=== PATIENT | male | born 1965 | race Caucasian/White ===

== ENCOUNTER 2016-09-24 15:31 | Inpatient (IN) | payer MEDICAID ==
[~2016-09-24] VITALS: Ht 175.3 cm; Wt 104.5 kg
[~2016-09-24 15:31] MED LIST: ULTR50TA PO
[2016-09-24 15:33] VITALS: BP 167/79; PULSE 88; RESP 16; TEMP 98.7; O2SAT 99
[2016-09-24] MEDS ORDERED: METF500T PO (15:49)
[2016-09-24] MEDS ORDERED: PIPERACIL-TAZO 4.5 GM PREMIX 100 ML IV STA (15:53)
[2016-09-24] MEDS ORDERED: VANCOMYCIN INJ 1,000 MG in SODIUM CHLOR 0.9% 250 ML INJ 250 ML IV STA (15:53)
[2016-09-24 16:10] VITALS: BP 167/79; PULSE 88; RESP 16; TEMP 98.7; O2SAT 99
--- NOTE | 2016-09-24 16:11 | PD ---
Physical Exam Date Seen by Provider: Sep 24, 2016 Time Seen by Provider: 16:01 Narrative Claims seen this patient with César Smith PA-C. This is a 51-year-old male with a history of diabetes mellitus, probable peripheral vascular disease, who presents today with complaints of right foot necrosis and drainage. The patient states that he previously had his right great toe removed 1-1/2 years ago. Patient states that this current condition is been progressing over the last 4-5 months. He reports drainage of foul-smelling serosanguineous fluid. There is no reported fevers, chills. He does report increased pain at the bottom his foot that makes it very difficult to stand on. Data Data Last Documented VS Vital Signs Date Time Temp Pulse Resp B/P Pulse Ox O2 Delivery O2 Flow Rate FiO2 09/24/16 17:41 69 18 146/70 98 Room Air 09/24/16 16:10 98.7 Orders Complete Blood Count With Diff (09/24/16 15:53) Comprehensive Metabolic Panel (09/24/16 15:53) Prothrombin Time / Inr (Pt) (09/24/16 15:53) Act Partial Throm Time (Ptt) (09/24/16 15:53) Lactic Acid Sepsis Protocol (09/24/16 15:53) Magnesium (Mg) (09/24/16 15:53) Blood Culture (09/24/16 15:53) Wound Culture And Gram Stain (09/24/16 15:53) Blood Glucose (09/24/16 15:53) Ecg Monitoring (09/24/16 15:53) Iv Access Insert/Monitor (09/24/16 15:53) Oximetry (09/24/16 15:53) C-Reactive Protein (Crp) (09/24/16 15:53) Westergren Sedimentation Rate (09/24/16 15:53) Foot, Complete ([id number]) (09/24/16 ) Piperacil-Tazo 4.5 Gm Premix (Zosyn 4.5 (09/24/16 15:53) Vancomycin Inj (Vancomycin Inj) (09/24/16 15:53) Morphine Inj (Morphine Inj) (09/24/16 17:15) Ondansetron Inj (Zofran Inj) (09/24/16 17:15) Labs Laboratory Tests Test 09/24/16 16:00 White Blood Count 7.1 TH/MM3 Red Blood Count 4.64 MIL/MM3 Hemoglobin 13.9 GM/DL Hematocrit 40.8 % Mean Corpuscular Volume 88.1 FL Mean Corpuscular Hemoglobin 30.0 PG Mean Corpuscular Hemoglobin 34.1 % Concent Red Cell Distribution Width 13.8 % Platelet Count 128 TH/MM3 Mean Platelet Volume 8.9 FL Neutrophils (%) (Auto) 55.2 % Lymphocytes (%) (Auto) 34.8 % Monocytes (%) (Auto) 5.4 % Eosinophils (%) (Auto) 3.3 % Basophils (%) (Auto) 1.3 % Neutrophils # (Auto) 3.9 TH/MM3 Lymphocytes # (Auto) 2.5 TH/MM3 Monocytes # (Auto) 0.4 TH/MM3 Eosinophils # (Auto) 0.2 TH/MM3 Basophils # (Auto) 0.1 TH/MM3 CBC Comment DIFF FINAL Differential Comment Prothrombin Time 10.1 SEC Prothromb Time International 0.9 RATIO Ratio Activated Partial 29.0 SEC Thromboplast Time Sodium Level 137 MEQ/L Potassium Level 4.1 MEQ/L Chloride Level 103 MEQ/L Carbon Dioxide Level 23.6 MEQ/L Anion Gap 10 MEQ/L Blood Urea Nitrogen 9 MG/DL Creatinine 0.79 MG/DL Estimat Glomerular Filtration 103 ML/MIN Rate Random Glucose 190 MG/DL Lactic Acid Level 1.8 mmol/L Calcium Level 9.3 MG/DL Magnesium Level 2.1 MG/DL Total Bilirubin 0.5 MG/DL Aspartate Amino Transf 31 U/L (AST/SGOT) Alanine Aminotransferase 37 U/L (ALT/SGPT) Alkaline Phosphatase 77 U/L C-Reactive Protein 2.10 MG/DL Total Protein 7.6 GM/DL Albumin 3.4 GM/DL [facility] Medical Record Reviewed: Yes Supervised Visit with DIANA: Yes Differential Diagnosis Gangrene versus osteomyelitis versus cellulitis Narrative Course 51-year-old male with history of diabetes medicine,, previous great right toe amputation, who presents today with worsening ulcer on the bottom of his right foot with necrosis and serous drainage. The patient states is been progressively worse over the last 4-5 months. He denies any fevers, chills. Patient states his blood sugars are unknown because he's not been checking them. He states he is just recently diagnosed with diabetes mellitus. White count 7.1. Blood glucose was 190. The patient will be admitted to the medicine service. He'll need a podiatry consult. He is amenable to the plan. Diagnosis Primary Impression: right foot ulcer with serosanguineous drainage. Additional Impressions: Type 2 diabetes mellitus Elevated random blood glucose level Tobacco abuse Admitting Information Admitting Physician Requests: Admit Ermias Abdullahi MD Sep 24, 2016 16:11
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
[2016-09-24 16:17] LABS: AUTOMATED NEUTROPHIL # 3.9 TH/MM3 (1.8-7.7); BASOPHIL # 0.1 TH/MM3 (0-0.2); BASOPHIL % 1.3 % (0.0-2.0); EOSINOPHIL # 0.2 TH/MM3 (0-0.4); EOSINOPHIL % 3.3 % (0.0-4.0); HEMATOCRIT 40.8 % (39.0-51.0); HEMO FLAGS DIFF FINAL; LYMPH % 34.8 % (9.0-44.0); LYMPHOCYTE # 2.5 TH/MM3 (1.0-4.8); MEAN CELL VOLUME 88.1 FL (80.0-100.0); MEAN CORPUSCULAR HGB CONC 34.1 % (32.0-36.0); MONO % 5.4 % (0.0-8.0); NEUT % 55.2 % (16.0-70.0); PLATELET COUNT 128 TH/MM3 (150-450); RED BLOOD COUNT 4.64 MIL/MM3 (4.50-5.90); RED CELL DISTRIBUTION WIDTH 13.8 % (11.6-17.2); WHITE BLOOD COUNT 7.1 TH/MM3 (4.0-11.0)
[2016-09-24 16:28] LABS: INTERNATIONAL NORMALIZED RATIO 0.9 RATIO; PROTHROMBIN TIME - PATIENT 10.1 SEC (9.8-11.6)
[2016-09-24 16:36] LABS: ALT (GPT) 37 U/L (12-78); ANION GAP 10 MEQ/L (5-15); AST (GOT) 31 U/L (15-37); BICARBONATE 23.6 MEQ/L (21.0-32.0); BLOOD UREA NITROGEN 9 MG/DL (7-18); CHLORIDE 103 MEQ/L (98-107); GLOMERULAR FILTRATION RATE 103 ML/MIN (>89); MAGNESIUM 2.1 MG/DL (1.5-2.5); POTASSIUM 4.1 MEQ/L (3.5-5.1); SODIUM (NA) 137 MEQ/L (136-145)
[2016-09-24 16:39] LABS: ALKALINE PHOSPHATASE 77 U/L (45-117); TOTAL BILIRUBIN ADULT 0.5 MG/DL (0.2-1.0)
--- NOTE | 2016-09-24 16:47 | RADRPT ---
EXAM DATE/TIME: 09/24/2016 16:16 [place] COMPARISON: No previous studies available for comparison. INDICATIONS : Open sores right foot, infection MEDICAL HISTORY : Diabetic SURGICAL HISTORY : Great toe amputation, right ENCOUNTER: Initial ACUITY: 1 week PAIN SCORE: 6/10 LOCATION: Right foot FINDINGS: Three view examination of the right foot demonstrates previous amputation at the first metatarsal and resection or resorption around the distal fifth metatarsal. No acute fracture or dislocation. No acu te bony destructive changes are seen. There is moderate osteoarthritis at the first tarsometatarsal j oint. Air in soft tissues around base of second and third toes. CONCLUSION: 1. Previous amputations as above. Apparent soft tissue ulceration and some air in soft tissues betwee n the second and third toes around the metatarsophalangeal joints. No definite bony erosive changes n oted. Cain Sheriff MD on September 24, 2016 at 16:43 Board Certified Radiologist. This report was verified electronically.
[2016-09-24] MEDS ORDERED: ONDANSETRON HCL 4 MG/2 ML VIAL IV PUSH ONE (17:15)
[2016-09-24] MEDS ORDERED: MORPHINE SULFATE 4 MG/ML INJ IV PUSH ONE (17:15)
[2016-09-24 17:41] VITALS: BP 146/70; PULSE 69; RESP 18; O2SAT 98
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
[2016-09-24] MEDS ORDERED: ACETAMINOPHEN 325 MG TAB PO PRN (18:45)
[2016-09-24] MEDS ORDERED: MAGNESIUM HYDROXIDE SUSP 30 ML CUP PO PRN (18:45)
[2016-09-24] MEDS ORDERED: DEXTROSE 50% IN WATER 50 ML VIAL(D50) IV PRN (18:45)
[2016-09-24] MEDS ORDERED: SODIUM CHLORIDE 0.9% FLUSH 10 ML FLUSH IV FLUSH PRN (18:45)
[2016-09-24] MEDS ORDERED: SENNOSIDES 8.6 MG TAB PO PRN (18:45)
[2016-09-24] MEDS ORDERED: LACTULOSE SYRUP 20 GM/30 ML CUP PO PRN (18:45)
[2016-09-24] MEDS ORDERED: BISACODYL 10 MG SUPP RECTAL PRN (18:45)
[2016-09-24] MEDS ORDERED: Vancomycin Consult Pharmacy 1 EA OTHER SCH (18:45)
[2016-09-24] MEDS ORDERED: GLUCAGON 1 MG/ML VIAL OTHER PRN (18:45)
[2016-09-24] MEDS ORDERED: oxyCODONE/ACETAMINOPHEN 5 MG/325 MG TAB PO PRN (19:00)
[2016-09-24] MEDS ORDERED: FLUMAZENIL 0.5 MG/5 ML VIAL IV PUSH PRN (19:00)
[2016-09-24] MEDS ORDERED: LORazepam 2 MG/ML VIAL IV PUSH PRN ×4 (19:00)
[2016-09-24] MEDS: LISINOPRIL 20 MG TAB PO SCH (19:00)
[2016-09-24] MEDS ORDERED: LORazepam 2 MG TAB PO PRN (19:00)
[2016-09-24] MEDS ORDERED: LORazepam 1 MG TAB PO PRN (19:00)
--- NOTE | 2016-09-24 20:32 | PD.CAR.PN ---
CVT Progress Note Subjective/Hospital Course: 09/24/16 Referral received Full consult to follow [facility] Delcid Objective: Vital Signs Date Time Temp Pulse Resp B/P Pulse Ox O2 Delivery O2 Flow Rate FiO2 09/24/16 17:41 69 18 146/70 98 Room Air 09/24/16 16:10 98.7 88 16 167/79 99 Room Air 09/24/16 15:44 86 20 09/24/16 15:33 98.7 88 16 167/79 99 Labs: Laboratory Tests Test 09/24/16 16:00 White Blood Count 7.1 TH/MM3 (4.0-11.0) Red Blood Count 4.64 MIL/MM3 (4.50-5.90) Hemoglobin 13.9 GM/DL (13.0-17.0) Hematocrit 40.8 % (39.0-51.0) Mean Corpuscular Volume 88.1 FL (80.0-100.0) Mean Corpuscular Hemoglobin 30.0 PG (27.0-34.0) Mean Corpuscular Hemoglobin 34.1 % Concent (32.0-36.0) Red Cell Distribution Width 13.8 % (11.6-17.2) Platelet Count 128 TH/MM3 (150-450) Mean Platelet Volume 8.9 FL (7.0-11.0) Neutrophils (%) (Auto) 55.2 % (16.0-70.0) Lymphocytes (%) (Auto) 34.8 % (9.0-44.0) Monocytes (%) (Auto) 5.4 % (0.0-8.0) Eosinophils (%) (Auto) 3.3 % (0.0-4.0) Basophils (%) (Auto) 1.3 % (0.0-2.0) Neutrophils # (Auto) 3.9 TH/MM3 (1.8-7.7) Lymphocytes # (Auto) 2.5 TH/MM3 (1.0-4.8) Monocytes # (Auto) 0.4 TH/MM3 (0-0.9) Eosinophils # (Auto) 0.2 TH/MM3 (0-0.4) Basophils # (Auto) 0.1 TH/MM3 (0-0.2) CBC Comment DIFF FINAL Differential Comment Erythrocyte Sedimentation Rate 41 mm/hr (0-20) Prothrombin Time 10.1 SEC (9.8-11.6) Prothromb Time International 0.9 RATIO Ratio Activated Partial 29.0 SEC Thromboplast Time (24.3-30.1) Sodium Level 137 MEQ/L (136-145) Potassium Level 4.1 MEQ/L (3.5-5.1) Chloride Level 103 MEQ/L (98-107) Carbon Dioxide Level 23.6 MEQ/L (21.0-32.0) Anion Gap 10 MEQ/L (5-15) Blood Urea Nitrogen 9 MG/DL (7-18) Creatinine 0.79 MG/DL (0.60-1.30) Estimat Glomerular Filtration 103 ML/MIN Rate (>89) Random Glucose 190 MG/DL (74-106) Lactic Acid Level 1.8 mmol/L (0.4-2.0) Calcium Level 9.3 MG/DL (8.5-10.1) Magnesium Level 2.1 MG/DL (1.5-2.5) Total Bilirubin 0.5 MG/DL (0.2-1.0) Aspartate Amino Transf 31 U/L (15-37) (AST/SGOT) Alanine Aminotransferase 37 U/L (12-78) (ALT/SGPT) Alkaline Phosphatase 77 U/L (45-117) C-Reactive Protein 2.10 MG/DL (0.00-0.30) Total Protein 7.6 GM/DL (6.4-8.2) Albumin 3.4 GM/DL (3.4-5.0) Result Diagram: 09/24/16 1600 09/24/16 1600 Albina Reddy MD Sep 24, 2016 20:32
[2016-09-24] MEDS ORDERED: GADODIAMIDE PF 287 MG/ML 20 ML VIAL (for RAD MRI) IV ONE (20:34)
[2016-09-24] MEDS: INSULIN ASPART SUPPLEMENTAL SCALE SQ SCH (21:00)
[2016-09-24] MEDS ORDERED: IOHEXOL 350 MG/ML 10 ML VIAL (for RAD DIAG) IV ONE (21:23)
--- NOTE | 2016-09-24 21:23 | RADRPT ---
EXAM DATE/TIME: 09/24/2016 20:25 [facility] COMPARISON: No previous studies available for comparison. INDICATIONS : Osteomyelitis. CONTRAST: 17 cc Omniscan (gadodiamide) IV MEDICAL HISTORY : Diabetes mellitus type 2. SURGICAL HISTORY : Right great toe amputation, Several abdominal surgeries to remove tree branches. ENCOUNTER: Initial ACUITY: 1 day PAIN SCORE: 0/10 LOCATION: Right foot TECHNIQUE: Multiplanar, multisequence MRI examination was performed without contrast and after the intravenous a dministration of gadolinium. FINDINGS: There is marrow edema and mild marrow enhancement at the third metatarsal head and proximal phalanx o f the third toe. There is also less severe marrow edema and less intense enhancement at the second me tatarsal head and proximal phalanx of the second toe. Findings are most compatible with early changes of osteomyelitis. The fourth metatarsal and fourth toe are intact. There is previous resection of fi rst metatarsal and great toe and partial resection or resorption of the distal fifth metatarsal aroun d the MTP. There is a soft tissue defect in the medial aspect of the foot. There is surrounding edema and enhancement characteristic of cellulitis. There is air in soft tissues around the second and thi rd metatarsal heads. CONCLUSION: 1. Early changes of osteomyelitis at the distal second and third metatarsals and proximal phalanges o f the second and third toes. There is air in surrounding soft tissues and fairly extensive cellulitis of the forefoot. Cain Sheriff MD on September 24, 2016 at 21:12 Board Certified Radiologist. This report was verified electronically.
[2016-09-24 21:30] VITALS: BP 145/76; PULSE 51; RESP 20; TEMP 96.6; O2SAT 100
[2016-09-24] MEDS: VANCOMYCIN INJ 1,000 MG in SODIUM CHLOR 0.9% 250 ML INJ 250 ML IV SCH (22:30)
[2016-09-24] MEDS: DOCUSATE SODIUM 50 MG/SENNA 8.6 MG TAB PO SCH (22:30)
[2016-09-24] MEDS: PIPERACIL-TAZO 4.5 GM PREMIX 100 ML IV SCH (22:30)
[2016-09-24] MEDS: SODIUM CHLORIDE 0.9% FLUSH 10 ML FLUSH IV FLUSH SCH (22:31)
[2016-09-24] MEDS: oxyCODONE/ACETAMINOPHEN 5 MG/325 MG TAB PO PRN (22:37)
[2016-09-25] VITALS: BP 142/62; PULSE 59; RESP 20; TEMP 96.9; O2SAT 98
[2016-09-25] MEDS: oxyCODONE/ACETAMINOPHEN 5 MG/325 MG TAB PO PRN ×4 (02:48→22:08)
[2016-09-25] MEDS: HEPARIN SODIUM - SQ 10,000 UNITS/ML VIAL SQ SCH ×3 (03:42→17:16)
[2016-09-25] MEDS: VANCOMYCIN INJ 1,000 MG in SODIUM CHLOR 0.9% 250 ML INJ 250 ML IV SCH ×3 (04:31→22:14)
[2016-09-25 05:10] LABS: AUTOMATED NEUTROPHIL # 2.7 TH/MM3 (1.8-7.7); BASOPHIL # 0.1 TH/MM3 (0-0.2); BASOPHIL % 1.2 % (0.0-2.0); EOSINOPHIL # 0.2 TH/MM3 (0-0.4); EOSINOPHIL % 3.3 % (0.0-4.0); HEMO FLAGS DIFF FINAL; LYMPH % 38.4 % (9.0-44.0); MEAN CELL VOLUME 87.6 FL (80.0-100.0); MEAN CORPUSCULAR HEMOGLOBIN 30.8 PG (27.0-34.0); MEAN CORPUSCULAR HGB CONC 35.1 % (32.0-36.0); MONO % 5.6 % (0.0-8.0); NEUT % 51.5 % (16.0-70.0); PLATELET COUNT 116 TH/MM3 (150-450); RED BLOOD COUNT 4.22 MIL/MM3 (4.50-5.90); RED CELL DISTRIBUTION WIDTH 14.1 % (11.6-17.2); WHITE BLOOD COUNT 5.3 TH/MM3 (4.0-11.0)
[2016-09-25] MEDS: PIPERACIL-TAZO 4.5 GM PREMIX 100 ML IV SCH ×3 (06:05→22:13)
[2016-09-25] MEDS: INSULIN ASPART SUPPLEMENTAL SCALE SQ SCH ×4 (06:37→22:32)
[2016-09-25 06:52] LABS: ALKALINE PHOSPHATASE 79 U/L (45-117); ALT (GPT) 105 U/L (12-78); ANION GAP 8 MEQ/L (5-15); AST (GOT) 141 U/L (15-37); BICARBONATE 26.6 MEQ/L (21.0-32.0); BLOOD UREA NITROGEN 10 MG/DL (7-18); CHLORIDE 102 MEQ/L (98-107); GLOMERULAR FILTRATION RATE 95 ML/MIN (>89); POTASSIUM 3.9 MEQ/L (3.5-5.1); SODIUM (NA) 137 MEQ/L (136-145); TOTAL BILIRUBIN ADULT 0.5 MG/DL (0.2-1.0)
--- NOTE | 2016-09-25 07:58 | RADRPT ---
EXAM DATE/TIME: 09/24/2016 21:05 [facility] COMPARISON: CTA RUNOFF W 3D RECON, April 01, 2009, 9:09. INDICATIONS : Non-healing left foot ulcer. Diabetic. IV CONTRAST: 100 cc Omnipaque 350 (iohexol) IV RADIATION DOSE: 3.82 CTDIvol (mGy) MEDICAL HISTORY : Diabetes mellitus type 2. Chronic obstructive pulmonary disease. Asthma. SURGICAL HISTORY : Splenectomy. Partial liver removed. Partial right lung removed. ENCOUNTER: Initial ACUITY: 1 day PAIN SCALE: 2/10 LOCATION: Left foot TECHNIQUE: Volumetric scanning was performed using a multi-row detector CT scanner. The data was post processed with a variety of visualization algorithms including full volume maximum intensity pr ojection, multi-planar sliding thin slab reformation, curved planar reformation, and surface renderin g techniques. Using automated exposure control and adjustment of the mA and/or kV according to patie nt size, radiation dose was kept as low as reasonably achievable to obtain optimal diagnostic quality images. FINDINGS: ABDOMINAL AORTA: The aorta is small without aneurysm. Single nonstenotic renal arteries are note d. The celiac, SMA and ELVIA are all patent. RIGHT LEG: The right common iliac, external iliac and common femoral are widely patent. The supe rficial femoral artery and profunda are patent with a three-vessel trifurcation with the posterior ti bial artery providing the bulk of the runoff to the foot. LEFT LEG: The left common iliac, external iliac and common femoral are widely patent. The superf icial femoral artery and profunda are patent. Popliteal artery is patent with a very small amount of calcification at the adductor hiatus. There is a three-vessel trifurcation identified with a high takeoff of the anterior tibial artery. I cannot confidently see two vessels at the ankle. Some of this is probably on the basis of timing. The right leg looks hyperemic when compared to the left. I do not see an inflow limiting stenosis by CT angiography. The minimal calcific plaque at the adductor hiatus is probably not inflow limiting. I do not see a source of emboli. Source data reveals moderate fatty replacement to the liver with evidence for previous resection. Pa ncreas, spleen and right kidney are unremarkable. There may be a small stone lower pole of the left kidney that is not obstructing. CONCLUSION: Very minimal inflow disease adductor hiatus on the left. Flow is better on the right than the left p robably related to hyperemia. I don't see a source of emboli. Correlation with AVA's is suggested. Primary vessel disease is probably not the source of the nonhealing ulcer of the left foot. Wesley Jones MD FACR on September 25, 2016 at 7:07 Board Certified Radiologist. This report was verified electronically.
[2016-09-25 08:00] VITALS: BP 126/73; PULSE 48; RESP 19; TEMP 98.5; O2SAT 99
[2016-09-25] MEDS: LISINOPRIL 20 MG TAB PO SCH (08:02)
[2016-09-25] MEDS: DOCUSATE SODIUM 50 MG/SENNA 8.6 MG TAB PO SCH ×2 (08:02→22:08)
[2016-09-25] MEDS: SODIUM CHLORIDE 0.9% FLUSH 10 ML FLUSH IV FLUSH SCH ×2 (08:03→22:14)
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
[2016-09-25 12:00] VITALS: BP 112/68; PULSE 52; RESP 18; TEMP 96.8; O2SAT 98
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
[2016-09-25 16:00] VITALS: BP 97/64; PULSE 53; RESP 17; TEMP 95.7; O2SAT 97
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
[2016-09-25 20:00] VITALS: BP 108/63; PULSE 51; RESP 18; TEMP 96.3; O2SAT 99
[2016-09-26] VITALS: BP 115/64; PULSE 53; RESP 18; TEMP 96.4; O2SAT 95
[2016-09-26] MEDS ORDERED: TEMAZEPAM 7.5 MG CAP PO ONE (00:30)
[2016-09-26] MEDS: HEPARIN SODIUM - SQ 10,000 UNITS/ML VIAL SQ SCH ×3 (02:08→17:22)
[2016-09-26] MEDS: oxyCODONE/ACETAMINOPHEN 5 MG/325 MG TAB PO PRN ×4 (03:07→15:31)
[2016-09-26] MEDS ORDERED: PHARMACY ORDERED LAB ONE (04:45)
[2016-09-26] MEDS ORDERED: INSULIN HUMAN REGULAR 1,000 UNITS/10 ML VIAL SQ PRN (04:45)
[2016-09-26] MEDS ORDERED: LACTATED RINGER'S 1000 ML IV PRN (04:45)
[2016-09-26 05:15] LABS: APTT (PATIENT) 28.5 SEC (24.3-30.1)
[2016-09-26] MEDS: PIPERACIL-TAZO 4.5 GM PREMIX 100 ML IV SCH ×3 (05:41→20:27)
[2016-09-26] MEDS: VANCOMYCIN INJ 1,000 MG in SODIUM CHLOR 0.9% 250 ML INJ 250 ML IV SCH ×3 (05:41→20:27)
[2016-09-26] MEDS: INSULIN ASPART SUPPLEMENTAL SCALE SQ SCH ×4 (06:26→21:00)
[2016-09-26 08:00] VITALS: BP 98/72; PULSE 51; RESP 17; TEMP 95.9; O2SAT 95
--- NOTE | 2016-09-26 08:35 | PD.POD.CON ---
Patient Intake Chief Complaint Ulcerations and osteomyelitis right foot Consult Requested by Leslie Jacob DPAj Reason for Consult Treatment of osteomyelitis and foot ulcers right foot Primary Care Physician Mich Shell History of Present Illness Patient is a 51-year-old male diabetic noncompliant with his blood sugar control and tobacco use who I saw over a year ago for an amputation of the right hallux. Patient has developed an ulceration over the last 6 months. He did not follow up with any physician and has been treating it himself. He presented to [place] with an infection of the right foot. Dr. Jacob who was covering for me saw him yesterday. Radiographs and MRI show osteomyelitis of the midfoot. Patient is been seen by vascular surgery and underwent a CTA which showed good blood flow. Patient has been seen by infectious disease. Based on the results of his MRI patient will require an open transmetatarsal amputation. Coded Allergies: No Known Allergies (Verified , 09/24/16) Preferred Language to Discuss: [place] Barriers to Learning: None Teaching Method: Discussion Vital Signs Date Time Temp Pulse Resp B/P Pulse Ox O2 Delivery O2 Flow Rate FiO2 09/26/16 08:00 95.9 51 17 98/72 95 09/26/16 04:19 18 09/26/16 00:00 96.4 53 18 115/64 95 09/25/16 20:00 96.3 51 18 108/63 99 09/25/16 16:00 95.7 53 17 97/64 97 09/25/16 12:00 96.8 52 18 112/68 98 Pain scale used: 0-10 numeric scale Pain score: 0 Medications Current Medications Piperacillin Sod/ Tazobactam Sod 100 ml @ 200 mls/hr ONCE STAT IV Last administered on 09/24/16 16:16; Start 09/24/16 at 15:53; Stop 09/24/16 at 16:22 ; Status DC Vancomycin HCl/ Sodium Chloride (Vancomycin Inj/ NS 250 ml Inj) 250 ml @ 250 mls/hr ONCE STAT IV Last administered on 09/24/16 17:05; Start 09/24/16 at 15 :53; Stop 09/24/16 at 16:52; Status DC Morphine Sulfate (Morphine Inj) 4 mg ONCE ONCE IV PUSH Last administered on 17:11; Start 09/24/16 at 17:15; Stop 09/24/16 at 17:16; Status DC Ondansetron HCl (Zofran Inj) 4 mg ONCE ONCE IV PUSH Last administered on 17:11; Start 09/24/16 at 17:15; Stop 09/24/16 at 17:16; Status DC Sodium Chloride (NS Flush) 2 ml UNSCH PRN IV FLUSH FLUSH AFTER USING IV ACCESS ; Start 09/24/16 at 18:45 Sodium Chloride (NS Flush) 2 ml BID IV FLUSH Last administered on 09/25/16 22: 14; Start 09/24/16 at 21:00 Acetaminophen (Tylenol) 650 mg Q4H PRN PO TEMP > 100.4; Start 09/24/16 at 18:45 Ondansetron HCl (Zofran Inj) 4 mg Q6H PRN IVP NAUSEA OR VOMITING; Start at 18:45 Heparin Sodium (Porcine) (Heparin Inj) 5,000 units Q8H SQ Last administered on 09/25/16 17:16; Start 09/24/16 at 18:45 Senna/Docusate Sodium (Chey-Colace) 1 tab BID PO Last administered on 22:08; Start 09/24/16 at 21:00 Magnesium Hydroxide (Milk Of Magnesia Liq) 30 ml Q12H PRN PO MILD - MODERATE CONSTIPATION; Start 09/24/16 at 18:45 Sennosides (Senokot) 17.2 mg Q12H PRN PO MODERATE - SEVERE CONSTIPATION; Start 09/24/16 at 18:45 Bisacodyl (Dulcolax Supp) 10 mg DAILY PRN RECTAL SEVERE CONSITIPATION; Start at 18:45 Lactulose 30 ml 30 ml DAILY PRN PO SEVERE CONSITIPATION; Start 09/24/16 at 18: 45 Piperacillin Sod/ Tazobactam Sod 100 ml @ 200 mls/hr Q8HR IV Last administered on 09/26/16 05:41; Start 09/24/16 at 22:00 Pharmacy Profile Note 0 ml @ 0 mls/hr UNSCH OTHER ; Start 09/24/16 at 18:45 Vancomycin HCl/ Sodium Chloride (Vancomycin Inj/ NS 250 ml Inj) 250 ml @ 250 mls/hr Q8H IV Last administered on 09/26/16 05:41; Start 09/24/16 at 21:00 Dextrose (D50w (Vial) Inj) 50 ml UNSCH PRN IV HYPOGLYCEMIA-SEE COMMENTS; Start 09/24/16 at 18:45 Glucagon (Glucagon Inj) 1 mg UNSCH PRN OTHER HYPOGLYCEMIA-SEE COMMENTS; Start 09/24/16 at 18:45 Insulin Aspart (NovoLOG SUPPLEMENTAL SCALE) 1 ACHS SLIDING SCALE SQ Last administered on 09/25/16 22:32; Start 09/24/16 at 21:00 Lisinopril (Prinivil) 20 mg DAILY PO Last administered on 09/25/16 08:02; Start 09/24/16 at 19:00 Oxycodone/ Acetaminophen (Percocet 5-325 Mg) 1 tab Q4H PRN PO PAIN SCALE 1 TO 4 Last administered on 09/25/16 12:51; Start 09/24/16 at 19:00 Oxycodone/ Acetaminophen (Percocet 5-325 Mg) 2 tab Q4H PRN PO PAIN SCALE 5 TO 10 Last administered on 09/26/16 06:27; Start 09/24/16 at 19:00 Morphine Sulfate (Morphine Inj) 4 mg Q3H PRN IV PUSH BREAKTHROUGH PAIN; Start 09/24/16 at 19:00 Flumazenil (Romazicon Inj) 0.2 mg Q1M PRN IV PUSH SEE LABEL COMMENTS; Start 01/31 at 19:00 Lorazepam (Ativan) 1 mg Q4H PRN PO CIWA 8 - 10; Start 09/24/16 at 19:00 Lorazepam (Ativan Inj) 1 mg Q4H PRN IV PUSH CIWA 8 - 10; Start 09/24/16 at 19: 00 Lorazepam (Ativan) 2 mg Q2H PRN PO CIWA 11-14; Start 09/24/16 at 19:00 Lorazepam (Ativan Inj) 2 mg Q2H PRN IV PUSH CIWA 11-14; Start 09/24/16 at 19:00 Lorazepam (Ativan Inj) 2 mg Q1H PRN IV PUSH CIWA 15-20; Start 09/24/16 at 19:00 Lorazepam (Ativan Inj) 2 mg Q15M PRN IV PUSH CIWA > 20; Start 09/24/16 at 19:00 Miscellaneous Information SPECIFIC LAB TO BE DRAWN: VANCOMYCIN TROUGH DATE TO... ONCE ONCE .XX Last administered on 09/26/16 04:45; Start 09/26/16 at 04 :45; Stop 09/26/16 at 04:46; Status DC Gadodiamide (Omniscan Pf Inj) 20 ml STK-MED ONCE IV Last administered on 20:34; Start 09/24/16 at 20:34; Stop 09/24/16 at 20:35; Status DC Iohexol (Omnipaque 350 Inj) 100 ml STK-MED ONCE IV Last administered on 21:23; Start 09/24/16 at 21:23; Stop 09/24/16 at 21:24; Status DC Temazepam 7.5 mg 7.5 mg ONCE ONCE PO Last administered on 09/26/16 01:19; Start 09/26/16 at 00:30; Stop 09/26/16 at 00:31; Status DC Lactated Ringer's (Lr 1000 ml Inj) 1,000 ml @ 30 mls/hr Q24H PRN IV SEE LABEL COMMENTS; Start 09/26/16 at 04:45; Stop 09/29/16 at 04:44 Insulin Human Regular (NovoLIN R INJ) See Protocol Table ... ALBERENE STONE SETTER PRN SQ SEE PROTOCOL TABLE; Start 09/26/16 at 04:45; Stop 09/29/16 at 04:44 Past, Family & Social History Past Medical History Endocrine: REPORTS HX OF: Diabetes mellitus Respiratory: REPORTS HX OF: Other respiratory history (traumatic pneumothorax years ago. No sequela) Cardiovascular: REPORTS HX OF: Hypertension Neurologic: REPORTS HX OF: Peripheral neuropathy (right lower extremity secondary to trauma) Psychiatric: REPORTS HX OF: Anxiety, Depression Past Surgical History Gastrointestinal: DENIES HX OF: Colectomy, total Musculoskeletal: REPORTS HX OF: Other musculoskeletal srg (amputation of right first ray, previous history of fifth metatarsal head re) Breast: DENIES HX OF: Mastectomy, bilateral, Mastectomy, left, Mastectomy, right Family Medical History Patient reports no known family medical history. Substance Use Substance use: Denies use Review of Systems Musculoskeletal: COMPLAINS OF: Deformaties Neurological: COMPLAINS OF: Numbness/tingling, Changes in sensation Exam-Podiatry Constitutional General appearance: comfortable Nutritional status: normal Orientation: alert and oriented x3 Dermatological Exam Skin Temp - Right: Within Normal Limits Skin Texture - Right: Within Normal Limits Skin Elasticity - Right: Within Normal Limits Skin Tugor - Right: Within Normal Limits Hair Growth - Right: Within Normal Limits Pigmentation - Right: Within Normal Limits Skin Temp - Left: Within Normal Limits Skin Texture - Left: Within Normal Limits Skin Elasticity - Left: Within Normal Limits Skin Tugor - Left: Within Normal Limits Hair Growth - Left: Within Normal Limits Pigmentation - Left: Within Normal Limits Ulcers: Location/Measurements There is a plantar ulceration under the second metatarsal which probes deep to bone. No purulence seen. No odor present. Necrotic tissue near the amputation site of the right hallux. Midfoot swelling. Vascular/Lymphatic Exam R Dorsails Pedis: Palpable L Dorsails Pedis: Palpable R Posterior Tibial: Palpable L Posterior Tibial: Palpable Neurologic Exam Present on right: Tingling, Anesthesia Present on left: Tingling, Anesthesia Sensation: Light touch: Dimished Pinprick: Dimished Proprioception: Dimished Vibratory: Dimished Monofilament exam: 1st metatarsal head: diminished 5th metatarsal head: diminished Great toe: diminished Musculoskeletal Exam Details Amputation of the right hallux Muscle Strength Dorsiflexion (Right): Normal Plantarflexion (Right): Normal Inversion (Right): Normal Eversion (Right): Normal Digital (Right): Normal Dorsiflexion (Left): Normal Plantarflexion (Left): Normal Inversion (Left): Normal Eversion (Left): Normal Digital (Left): Normal Foot Range of Motion Dorsiflexion (Right): Normal Plantarflexion (Right): Normal Inversion (Right): Normal Eversion (Right): Normal Digital (Right): Normal Dorsiflexion (Left): Normal Plantarflexion (Left): Normal Inversion (Left): Normal Eversion (Left): Normal Digital (Left): Normal Wound Assessment Wound Information - Wound One Wound Location: Right foot- Great toe ampsite Lab and Radiology Results Laboratory Laboratory Tests Test 09/24/16 09/25/16 16:00 04:05 White Blood Count 7.1 TH/MM3 5.3 TH/MM3 Red Blood Count 4.64 MIL/MM3 4.22 MIL/MM3 Hemoglobin 13.9 GM/DL 13.0 GM/DL Hematocrit 40.8 % 37.0 % Mean Corpuscular Volume 88.1 FL 87.6 FL Mean Corpuscular Hemoglobin 30.0 PG 30.8 PG Mean Corpuscular Hemoglobin 34.1 % 35.1 % Concent Red Cell Distribution Width 13.8 % 14.1 % Platelet Count 128 TH/MM3 116 TH/MM3 Mean Platelet Volume 8.9 FL 9.1 FL Neutrophils (%) (Auto) 55.2 % 51.5 % Lymphocytes (%) (Auto) 34.8 % 38.4 % Monocytes (%) (Auto) 5.4 % 5.6 % Eosinophils (%) (Auto) 3.3 % 3.3 % Basophils (%) (Auto) 1.3 % 1.2 % Neutrophils # (Auto) 3.9 TH/MM3 2.7 TH/MM3 Lymphocytes # (Auto) 2.5 TH/MM3 2.0 TH/MM3 Monocytes # (Auto) 0.4 TH/MM3 0.3 TH/MM3 Eosinophils # (Auto) 0.2 TH/MM3 0.2 TH/MM3 Basophils # (Auto) 0.1 TH/MM3 0.1 TH/MM3 CBC Comment DIFF FINAL DIFF FINAL Differential Comment Erythrocyte Sedimentation Rate 41 mm/hr Laboratory Tests Test 09/24/16 09/25/16 16:00 04:05 Sodium Level 137 MEQ/L 137 MEQ/L Potassium Level 4.1 MEQ/L 3.9 MEQ/L Chloride Level 103 MEQ/L 102 MEQ/L Carbon Dioxide Level 23.6 MEQ/L 26.6 MEQ/L Anion Gap 10 MEQ/L 8 MEQ/L Blood Urea Nitrogen 9 MG/DL 10 MG/DL Creatinine 0.79 MG/DL 0.85 MG/DL Estimat Glomerular Filtration 103 ML/MIN 95 ML/MIN Rate Random Glucose 190 MG/DL 219 MG/DL Lactic Acid Level 1.8 mmol/L Calcium Level 9.3 MG/DL 8.1 MG/DL Magnesium Level 2.1 MG/DL Total Bilirubin 0.5 MG/DL 0.5 MG/DL Aspartate Amino Transf 31 U/L 141 U/L (AST/SGOT) Alanine Aminotransferase 37 U/L 105 U/L (ALT/SGPT) Alkaline Phosphatase 77 U/L 79 U/L C-Reactive Protein 2.10 MG/DL Total Protein 7.6 GM/DL 6.8 GM/DL Albumin 3.4 GM/DL 2.9 GM/DL Microbiology Date/Time Procedure Status Source Growth 09/24/16 16:00 Aerobic Blood Culture - Preliminary Resulted Blood Peripheral NO GROWTH IN 1 DAY 09/24/16 16:00 Anaerobic Blood Culture - Preliminary Resulted Blood Peripheral NO GROWTH IN 1 DAY 09/24/16 16:00 Gram Stain - Final Resulted Wound Foot 09/24/16 16:00 Wound Culture - Preliminary Resulted Wound Foot 09/24/16 16:30 Aerobic Blood Culture - Preliminary Resulted Blood Peripheral NO GROWTH IN 1 DAY 09/24/16 16:30 Anaerobic Blood Culture - Preliminary Resulted Blood Peripheral NO GROWTH IN 1 DAY Radiology Last Impressions Foot X-Ray 09/24/16 0000 Signed Impressions: Service Date/Time: Saturday, September 24, 2016 16:16 - CONCLUSION: 1. Previous amputations as above. Apparent soft tissue ulceration and some air in soft tissues between the second and third toes around the metatarsophalangeal joints. No definite bony erosive changes noted. Cain Sheriff MD Foot MRI 09/24/16 0000 Signed Impressions: Service Date/Time: Saturday, September 24, 2016 20:25 - CONCLUSION: 1. Early changes of osteomyelitis at the distal second and third metatarsals and proximal phalanges of the second and third toes. There is air in surrounding soft tissues and fairly extensive cellulitis of the forefoot. Cain Sheriff MD Aorta w/Runoff CTA 09/24/16 0000 Signed Impressions: Service Date/Time: Saturday, September 24, 2016 21:05 - CONCLUSION: Very minimal inflow disease adductor hiatus on the left. Flow is better on the right than the left probably related to hyperemia. I don't see a source of emboli. Correlation with AVA's is suggested. Primary vessel disease is probably not the source of the nonhealing ulcer of the left foot. Wesley Jones MD FACR Assessment/Plan Problem List: (1) Foot ulceration Status: Acute (2) Type 2 diabetes mellitus Status: Chronic (3) Tobacco abuse Status: Chronic (4) Diabetic foot ulcer Status: Acute (5) Osteomyelitis of right foot Status: Acute Additional Plans & Procedures PLAN: Discussed with patient his treatment options. Patient will be taken to the OR at 4:15 today for transmetatarsal amputation, open, with application of negative pressure wound VAC. Patient wishes to proceed with planned surgery. Patient is nothing by mouth. Preop consents written. Problem Qualifiers (1) Foot ulceration: Qualified Code: L97.514 - Foot ulceration, right, with necrosis of bone (2) Type 2 diabetes mellitus: Qualified Code: E11.42 - Type 2 diabetes mellitus with diabetic polyneuropathy , without long-term current use of insulin (3) Diabetic foot ulcer: Qualified Code: E11.621 - Diabetic ulcer of other part of right foot associated with type 2 diabetes mellitus, unspecified ulcer stage (4) Osteomyelitis of right foot: Qualified Code: M86.171 - Other acute osteomyelitis of right foot Dustin Stout DPM Sep 26, 2016 08:35
[2016-09-26] MEDS: LISINOPRIL 20 MG TAB PO SCH (09:00)
[2016-09-26] MEDS: MORPHINE SULFATE 4 MG/ML INJ IV PUSH PRN ×2 (09:07→13:28)
[2016-09-26] MEDS: DOCUSATE SODIUM 50 MG/SENNA 8.6 MG TAB PO SCH ×2 (09:08→20:29)
[2016-09-26] MEDS: SODIUM CHLORIDE 0.9% FLUSH 10 ML FLUSH IV FLUSH SCH ×2 (09:08→20:28)
--- NOTE | 2016-09-26 11:14 | PD.CAR.PN ---
CVT Progress Note Subjective/Hospital Course: 09/24/16 Referral received Full consult to follow Boone Delcid 09/26/16 Patient with right foot wound status post hallux amputation I reviewed CTA with runoff and patient's excellent inflow above the knee and outflow below the knee via all 3 vessels Patient does have small vessel disease in his foot and clearly this is the cause of his problems The diabetic peripheral vascular disease is pathologically and histo embryologically a quite different process from the regular artery was sclerotic changes and is manifested by distal locations as well as different histopathology consisting of vessel wall fibro-calcifications and wall sclerosis rather than classic atheromatous disease seen in non-diabetics There is no surgical or endovascular intervention that would remedy this problem at this time With time the vascular disease will send to the trifurcation vessels and at that point patient may need below-knee amputation but that this point every effort should be made to preserve the patient's foot viability There is nothing to do to improve or ready adequate blood flow to the foot We'll sign off Objective: Vital Signs Date Time Temp Pulse Resp B/P Pulse Ox O2 Delivery O2 Flow Rate FiO2 09/26/16 08:00 95.9 51 17 98/72 95 09/26/16 04:19 18 09/26/16 00:00 96.4 53 18 115/64 95 09/25/16 20:00 96.3 51 18 108/63 99 09/25/16 16:00 95.7 53 17 97/64 97 09/25/16 12:00 96.8 52 18 112/68 98 Labs: Laboratory Tests Test 09/26/16 04:45 Activated Partial 28.5 SEC Thromboplast Time (24.3-30.1) Vancomycin Level Trough 17.8 MCG/ML (5.0-10.0) Result Diagram: 09/25/16 0405 09/25/16 0405 Albina Reddy MD Sep 26, 2016 11:14
[2016-09-26 12:00] VITALS: BP 112/68; PULSE 53; RESP 16; TEMP 95.2; O2SAT 95
[2016-09-26] MEDS ORDERED: ONDANSETRON HCL 4 MG/2 ML VIAL IV PUSH ONE (12:00)
[2016-09-26] MEDS ORDERED: PROPOFOL 200 MG/20 ML AMP IV ONE (12:00)
--- NOTE | 2016-09-26 12:23 | RADRPT ---
EXAM DATE/TIME: 09/26/2016 11:17 [facility] COMPARISON: CTA RUNOFF W 3D RECON, September 24, 2016, 21:05. CHEST PA & LAT, May 27, 2015, 17:01. INDICATIONS : Evaluate for pneumonia, pneumothorax, or communicable disease. Pre-op for amputation of right forefo ot. MEDICAL HISTORY : Diabetes mellitus type II. SURGICAL HISTORY : Abdominal surgery. ENCOUNTER: Initial ACUITY: 3 days PAIN SCORE: 0/10 LOCATION: Chest FINDINGS: The heart is enlarged. There is marked elevation of the right hemidiaphragm with multiple surgical c lips in the expected location of the liver. There is no alveolar consolidation, pleural effusion or pneumothorax. Portion of bony skeleton visua lized unremarkable. CONCLUSION: Negative chest for acute disease. Wesley Jones MD FACR on September 26, 2016 at 11:44 Board Certified Radiologist. This report was verified electronically.
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
[2016-09-26] MEDS: ONDANSETRON HCL 4 MG/2 ML VIAL IVP PRN ×2 (13:31→20:31)
[2016-09-26] MEDS ORDERED: LIDOCAINE HCL 1% 50 ML VIAL ONE (15:59)
[2016-09-26] MEDS ORDERED: BUPIVACAINE HCL PF 0.5% 30 ML VIAL ONE (15:59)
[2016-09-26 16:00] VITALS: BP 117/70; PULSE 57; RESP 17; TEMP 95.1; O2SAT 98
[2016-09-26] MEDS ORDERED: MIDAZOLAM HCL 2 MG/2 ML VIAL ONE (16:07)
[2016-09-26] MEDS ORDERED: fentaNYL CITRATE 250 MCG/5 ML AMP ONE (16:07)
[2016-09-26] MEDS ORDERED: FAMOTIDINE 20 MG/2 ML VIAL ONE (16:08)
[2016-09-26 16:13] LABS: HEMOGLOBIN A1a 1.1 %; HEMOGLOBIN A1b 1.9 %; HEMOGLOBIN Ao 82.8 %; HEMOGLOBIN LA1C 2.1 %; HEMOGLOBIN P3 4.1 %
[2016-09-26] MEDS ORDERED: NALOXONE HCL 0.4 MG/ML AMP IV PRN (17:15)
[2016-09-26] MEDS ORDERED: Post-op Orders (for Pharmacy) MISC XX ONE (17:15)
[2016-09-26] MEDS ORDERED: SODIUM CHLORIDE 0.9% FLUSH 10 ML FLUSH IV FLUSH PRN (17:15)
[2016-09-26] MEDS ORDERED: DO NOT ADM ANY ANTICOAGULANT DRUGS PRN (17:16)
--- NOTE | 2016-09-26 17:18 | PD.OP ---
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 Surgeon: Dustin Stout DPM Commercial Lawn Specialist(s): None Operation and Findings: Patient was brought to the operating room and placed on the operating table in supine position. A pneumatic ankle cuff was placed around the patient's right ankle. Patient was given general inhalation anesthesia. The right foot was prepped and draped in the usual sterile manner. After the appropriate timeout was performed attention was directed to the right foot. Patient had a hallux amputation and a fifth toe amputation. He had osteomyelitis of the second and third metatarsal and it was determined that because of the large plantar ulceration that an open transmetatarsal amputation would be performed. At this time using a 10 blade a circumscribed described incisions were made around the midfoot of the right foot down to the metatarsals. Metatarsals are freed up from the subcutaneous tissue. Using an oscillating saw metatarsals 1 through 5 were transected at their mid shaft level. All necrotic tissue was noted to be gone from the wound. The wound was flushed with copious amounts of sterile saline. The area was blocked with 15 cc of 0.5% Marcaine. Pneumatic ankle cuff was deflated at the 15 minute linus. Any superficial bleeding vessels were ligated and bovied. At this time a negative pressure wound therapy VAC was placed over the open amputation site. The negative pressure wound therapy VAC was set at 125 continuous and was noted to be functioning properly. The right forefoot was sent to pathology. Sponge and instrument count were noted to be correct. Total blood loss was less than 25 cc. Patient the procedures and anesthesia well and left the OR to PACU in apparent satisfactory condition with all vital signs stable endovascular status intact to the right foot. Dustin Stout DPM Sep 26, 2016 17:18
[2016-09-26] MEDS: ACETAMINOPHEN 1000 MG/100 ML VIAL IV SCH (17:54)
[2016-09-26] MEDS ORDERED: *morphine SULFATE 8 MG/ML PERIprocedure ONLY ONE ×2 (17:55→18:14)
--- NOTE | 2016-09-26 18:12 | RADRPT ---
EXAM DATE/TIME: 09/26/2016 17:39 [facility] COMPARISON: FOOT RIGHT COMPLETE ([id number]), September 24, 2016, 16:16. INDICATIONS : Post op right foot partial amputation. MEDICAL HISTORY : Diabetes mellitus type II. SURGICAL HISTORY : Abdominal surgery. ENCOUNTER: Initial ACUITY: 1 day PAIN SCORE: Non-responsive. LOCATION: Right foot FINDINGS: The patient is status post amputation at the level of the proximal metatarsals. No acute fracture or dislocation is noted. CONCLUSION: Status post amputation at the level of the proximal metatarsals. Andrea Mcmahon MD on September 26, 2016 at 18:03 Board Certified Radiologist. This report was verified electronically.
--- NOTE | 2016-09-26 18:53 | EKG ---
Date Performed: 09/26/2016 Time Performed: 05:23:34 PTAGE: 51 years EKG: Sinus Bradycardia Limb leads have been placed incorrectly making this an improper To compar e. Normal ECG except for rate PREVIOUS TRACING : 05/27/2015 17.49.59 DOCTOR: Luis Thomas Interpretating Date/Time 09/26/2016 18:53:25
--- NOTE | 2016-09-26 18:55 | EKG ---
Date Performed: 09/26/2016 Time Performed: 09:17:32 PTAGE: 51 years EKG: SINUS BRADYCARDIA When compared to previous tracing, limb leads are now been Placed correct ly. BORDERLINE ECG PREVIOUS TRACING : 09/26/2016 05.23 DOCTOR: Luis Thomas Interpretating Date/Time 09/26/2016 18:54:27
[2016-09-26 20:00] VITALS: BP 110/63; PULSE 51; RESP 17; TEMP 96; O2SAT 97
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
[2016-09-27] VITALS (8 sets, daily range): BP systolic 126–145; BP diastolic 65–75; PULSE 50–58; RESP 16–22; TEMP 96–97.2; O2SAT 97–98
[2016-09-27] MEDS: ACETAMINOPHEN 1000 MG/100 ML VIAL IV SCH ×3 (00:01→11:47)
[2016-09-27] MEDS: HEPARIN SODIUM - SQ 10,000 UNITS/ML VIAL SQ SCH ×3 (02:45→17:40)
[2016-09-27] MEDS: VANCOMYCIN INJ 1,000 MG in SODIUM CHLOR 0.9% 250 ML INJ 250 ML IV SCH (04:23)
[2016-09-27] MEDS: PIPERACIL-TAZO 4.5 GM PREMIX 100 ML IV SCH ×3 (04:23→20:27)
[2016-09-27] MEDS ORDERED: PHARMACY ORDERED LAB ONE (04:45)
[2016-09-27] MEDS: INSULIN ASPART SUPPLEMENTAL SCALE SQ SCH ×4 (06:01→20:27)
[2016-09-27 06:30] LABS: VANCOMYCIN TROUGH 12.4 MCG/ML (5.0-10.0)
[2016-09-27] MEDS: SODIUM CHLORIDE 0.9% FLUSH 10 ML FLUSH IV FLUSH SCH ×2 (07:37→20:26)
[2016-09-27] MEDS: LISINOPRIL 10 MG TAB PO SCH (07:39)
[2016-09-27] MEDS: DOCUSATE SODIUM 50 MG/SENNA 8.6 MG TAB PO SCH ×2 (07:39→20:26)
[2016-09-27] MEDS: HYDROmorphone HCL PF 1 MG/ML VIAL IV PRN ×4 (07:50→23:29)
[2016-09-27] MEDS: ONDANSETRON HCL 4 MG/2 ML VIAL IVP PRN (07:57)
[2016-09-27] MEDS: VANCOMYCIN INJ 1,500 MG in SODIUM CHLORID 0.9% 500 ML INJ 500 ML IV SCH ×2 (11:47→22:53)
--- NOTE | 2016-09-27 12:49 | PD.POD ---
Subjective Podiatric Problems Open transmetatarsal amputation right foot Pain scale used: 0-10 numeric scale Pain score: 0 Remarks 51-year-old male diabetic 1 day status post open guillotine amputation at the transmetatarsal level of the right foot. Patient without complaints. His wound VAC was changed last night because of leakage. Wound VAC intact and functioning well as of this time Past Med/Surg/Social History Past Medical History PFSH Reviewed: Yes Endocrine: REPORTS HX OF: Diabetes mellitus Respiratory: REPORTS HX OF: Other respiratory history (traumatic pneumothorax years ago. No sequela) Cardiovascular: REPORTS HX OF: Hypertension Neurologic: REPORTS HX OF: Peripheral neuropathy (right lower extremity secondary to trauma) Psychiatric: REPORTS HX OF: Anxiety, Depression Past Surgical History Gastrointestinal: DENIES HX OF: Colectomy, total Musculoskeletal: REPORTS HX OF: Other musculoskeletal srg (amputation of right first ray, previous history of fifth metatarsal head re) Breast: DENIES HX OF: Mastectomy, bilateral, Mastectomy, left, Mastectomy, right Social History Smoking Status: Current Every Day Smoker Review of Systems Notes Bony changes since yesterday was a transmetatarsal amputation of the right foot Musculoskeletal: COMPLAINS OF: Deformaties Objective Vital Signs Vital Signs Date Time Temp Pulse Resp B/P Pulse Ox O2 Delivery O2 Flow Rate FiO2 09/27/16 12:00 96.5 58 16 132/65 98 09/27/16 08:47 98 Nasal Cannula 2.00 09/27/16 08:00 96.1 51 17 128/75 98 09/27/16 04:00 97.2 54 18 134/72 97 09/27/16 00:00 96.0 50 18 145/71 97 09/26/16 20:00 96.0 51 17 110/63 97 09/26/16 18:30 97.7 49 16 122/60 99 Nasal Cannula 2 09/26/16 18:15 50 12 122/65 95 09/26/16 18:00 55 16 117/69 100 09/26/16 17:45 51 15 116/70 97 09/26/16 17:30 50 12 111/64 97 Nasal Cannula 2 09/26/16 17:20 97.4 59 9 114/67 94 Nasal Cannula 2 09/26/16 16:00 95.1 57 17 117/70 98 Coded Allergies: No Known Allergies (Verified , 09/24/16) Medications and IVs Current Medications Piperacillin Sod/ Tazobactam Sod 100 ml @ 200 mls/hr ONCE STAT IV Last administered on 09/24/16 16:16; Start 09/24/16 at 15:53; Stop 09/24/16 at 16:22 ; Status DC Vancomycin HCl/ Sodium Chloride (Vancomycin Inj/ NS 250 ml Inj) 250 ml @ 250 mls/hr ONCE STAT IV Last administered on 09/24/16 17:05; Start 09/24/16 at 15 :53; Stop 09/24/16 at 16:52; Status DC Morphine Sulfate (Morphine Inj) 4 mg ONCE ONCE IV PUSH Last administered on 17:11; Start 09/24/16 at 17:15; Stop 09/24/16 at 17:16; Status DC Ondansetron HCl (Zofran Inj) 4 mg ONCE ONCE IV PUSH Last administered on 17:11; Start 09/24/16 at 17:15; Stop 09/24/16 at 17:16; Status DC Sodium Chloride (NS Flush) 2 ml UNSCH PRN IV FLUSH FLUSH AFTER USING IV ACCESS ; Start 09/24/16 at 18:45; Stop 09/26/16 at 17:36; Status DC Sodium Chloride (NS Flush) 2 ml BID IV FLUSH Last administered on 09/26/16 09: 08; Start 09/24/16 at 21:00; Stop 09/26/16 at 17:36; Status DC Acetaminophen (Tylenol) 650 mg Q4H PRN PO TEMP > 100.4; Start 09/24/16 at 18:45 Ondansetron HCl (Zofran Inj) 4 mg Q6H PRN IVP NAUSEA OR VOMITING Last administered on 09/27/16 07:57; Start 09/24/16 at 18:45 Heparin Sodium (Porcine) (Heparin Inj) 5,000 units Q8H SQ Last administered on 09/27/16 11:47; Start 09/24/16 at 18:45 Senna/Docusate Sodium (Chey-Colace) 1 tab BID PO Last administered on 07:39; Start 09/24/16 at 21:00 Magnesium Hydroxide (Milk Of Magnesia Liq) 30 ml Q12H PRN PO MILD - MODERATE CONSTIPATION; Start 09/24/16 at 18:45 Sennosides (Senokot) 17.2 mg Q12H PRN PO MODERATE - SEVERE CONSTIPATION; Start 09/24/16 at 18:45 Bisacodyl (Dulcolax Supp) 10 mg DAILY PRN RECTAL SEVERE CONSITIPATION; Start at 18:45 Lactulose 30 ml 30 ml DAILY PRN PO SEVERE CONSITIPATION; Start 09/24/16 at 18: 45 Piperacillin Sod/ Tazobactam Sod 100 ml @ 200 mls/hr Q8HR IV Last administered on 09/27/16 04:23; Start 09/24/16 at 22:00 Pharmacy Profile Note 0 ml @ 0 mls/hr UNSCH OTHER ; Start 09/24/16 at 18:45 Vancomycin HCl/ Sodium Chloride (Vancomycin Inj/ NS 250 ml Inj) 250 ml @ 250 mls/hr Q8H IV Last administered on 09/27/16 04:23; Start 09/24/16 at 21:00; Stop 09/27/16 at 08:47; Status DC Dextrose (D50w (Vial) Inj) 50 ml UNSCH PRN IV HYPOGLYCEMIA-SEE COMMENTS; Start 09/24/16 at 18:45 Glucagon (Glucagon Inj) 1 mg UNSCH PRN OTHER HYPOGLYCEMIA-SEE COMMENTS; Start 09/24/16 at 18:45 Insulin Aspart (NovoLOG SUPPLEMENTAL SCALE) 1 ACHS SLIDING SCALE SQ Last administered on 09/25/16 22:32; Start 09/24/16 at 21:00 Lisinopril (Prinivil) 20 mg DAILY PO Last administered on 09/25/16 08:02; Start 09/24/16 at 19:00; Stop 09/26/16 at 16:15; Status DC Oxycodone/ Acetaminophen (Percocet 5-325 Mg) 1 tab Q4H PRN PO PAIN SCALE 1 TO 4 Last administered on 09/25/16 12:51; Start 09/24/16 at 19:00; Stop 09/26/16 at 17:41; Status DC Oxycodone/ Acetaminophen (Percocet 5-325 Mg) 2 tab Q4H PRN PO PAIN SCALE 5 TO 10 Last administered on 09/26/16 15:31; Start 09/24/16 at 19:00; Stop 09/26/16 at 17:41; Status DC Morphine Sulfate (Morphine Inj) 4 mg Q3H PRN IV PUSH BREAKTHROUGH PAIN Last administered on 09/26/16 13:28; Start 09/24/16 at 19:00; Stop 09/26/16 at 17:40 ; Status DC Flumazenil (Romazicon Inj) 0.2 mg Q1M PRN IV PUSH SEE LABEL COMMENTS; Start 01/31 at 19:00 Lorazepam (Ativan) 1 mg Q4H PRN PO CIWA 8 - 10; Start 09/24/16 at 19:00 Lorazepam (Ativan Inj) 1 mg Q4H PRN IV PUSH CIWA 8 - 10; Start 09/24/16 at 19: 00 Lorazepam (Ativan) 2 mg Q2H PRN PO CIWA 11-14; Start 09/24/16 at 19:00 Lorazepam (Ativan Inj) 2 mg Q2H PRN IV PUSH CIWA 11-14; Start 09/24/16 at 19:00 Lorazepam (Ativan Inj) 2 mg Q1H PRN IV PUSH CIWA 15-20; Start 09/24/16 at 19:00 Lorazepam (Ativan Inj) 2 mg Q15M PRN IV PUSH CIWA > 20; Start 09/24/16 at 19:00 Miscellaneous Information SPECIFIC LAB TO BE DRAWN: VANCOMYCIN TROUGH DATE TO... ONCE ONCE .XX Last administered on 09/26/16 04:45; Start 09/26/16 at 04 :45; Stop 09/26/16 at 04:46; Status DC Gadodiamide (Omniscan Pf Inj) 20 ml STK-MED ONCE IV Last administered on 20:34; Start 09/24/16 at 20:34; Stop 09/24/16 at 20:35; Status DC Iohexol (Omnipaque 350 Inj) 100 ml STK-MED ONCE IV Last administered on 21:23; Start 09/24/16 at 21:23; Stop 09/24/16 at 21:24; Status DC Temazepam 7.5 mg 7.5 mg ONCE ONCE PO Last administered on 09/26/16 01:19; Start 09/26/16 at 00:30; Stop 09/26/16 at 00:31; Status DC Lactated Ringer's (Lr 1000 ml Inj) 1,000 ml @ 30 mls/hr Q24H PRN IV SEE LABEL COMMENTS; Start 09/26/16 at 04:45; Stop 09/29/16 at 04:44 Insulin Human Regular (NovoLIN R INJ) See Protocol Table ... 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 ONCE ONCE .XX Last administered on 09/27/16 04:23; Start 09/27/16 at 04:45; Stop 09/27/16 at 04:46 ; Status DC Bupivacaine HCl (Marcaine Pf 0.5% Inj) 30 ml STK-MED ONCE .ROUTE Last administered on 09/26/16 16:45; Start 09/26/16 at 15:59; Stop 09/26/16 at 16:00 ; Status DC Lidocaine HCl (Xylocaine 1% Inj (50 ml)) 50 ml STK-MED ONCE .ROUTE ; Start 09/26 at 15:59; Stop 09/26/16 at 16:00; Status DC Midazolam HCl (Versed Inj) 2 mg STK-MED ONCE .ROUTE ; Start 09/26/16 at 16:07; Stop 09/26/16 at 16:08; Status DC Fentanyl Citrate (fentaNYL INJ) 250 mcg STK-MED ONCE .ROUTE ; Start 09/26/16 at 16:07; Stop 09/26/16 at 16:08; Status DC Famotidine (Pepcid Inj) 20 mg STK-MED ONCE .ROUTE ; Start 09/26/16 at 16:08; Stop 09/26/16 at 16:09; Status DC Lisinopril (Prinivil) 10 mg DAILY PO Last administered on 09/27/16 07:39; Start 09/27/16 at 09:00 Sodium Chloride (NS Flush) 2 ml UNSCH PRN IV FLUSH FLUSH AFTER USING IV ACCESS ; Start 09/26/16 at 17:15 Sodium Chloride (NS Flush) 2 ml BID IV FLUSH Last administered on 09/26/16 20: 28; Start 09/26/16 at 21:00 Miscellaneous Information (Post-op Orders (for Pharmacy)) STAT ONCE XX ; Start 09/26/16 at 17:15; Stop 09/26/16 at 17:38; Status DC Oxycodone HCl (Roxicodone) 10 mg Q4H PRN PO PAIN SCALE 6 TO 10; Start 09/26/16 at 17:15 Acetaminophen (Ofirmev Inj) 1,000 mg Q6H IV Last administered on 09/27/16 11: 47; Start 09/26/16 at 18:00; Stop 09/27/16 at 12:01; Status DC Hydromorphone HCl (Dilaudid Pf Inj) 1 mg Q3H PRN IV BREAKTHROUGH PAIN Last administered on 09/27/16 11:55; Start 09/26/16 at 17:15 Oxycodone HCl (Roxicodone) 5 mg Q4H PRN PO PAIN SCALE 3 TO 5; Start 09/26/16 at 17:15 Naloxone HCl (Narcan Inj) 0.4 mg UNSCH PRN IV SEE LABEL COMMENTS; Start at 17:15 Miscellaneous Information ALL NURSING DEPARTME... UNSCH PRN .XX SEE LABEL COMMENTS; Start 09/26/16 at 17:16; Stop 09/27/16 at 17:15 Morphine Sulfate (*morphine INJ PERIprocedure ONLY) 8 mg STK-MED ONCE .ROUTE Last administered on 09/26/16 17:57; Start 09/26/16 at 17:55; Stop 09/26/16 at 17:56; Status DC Morphine Sulfate 8 mg 8 mg STK-MED ONCE .ROUTE Last administered on 09/26/16 18:14; Start 09/26/16 at 18:14; Stop 09/26/16 at 18:15; Status DC Vancomycin HCl/ Sodium Chloride (Vancomycin Inj/ NS 500 ml Inj) 515 ml @ 250 mls/hr Q12H IV Last administered on 09/27/16 11:47; Start 09/27/16 at 12:00 Miscellaneous Information SPECIFIC LAB TO BE DRAWN:VANCOMYCIN TROUGH DATE TO... ONCE ONCE .XX ; Start 09/29/16 at 11:45; Stop 09/29/16 at 11:46 Other Results Laboratory Tests Test 09/27/16 04:27 Creatinine 0.75 MG/DL Estimat Glomerular Filtration 109 ML/MIN Rate Microbiology Date/Time Procedure Status Source Growth 09/24/16 16:00 Aerobic Blood Culture - Preliminary Resulted Blood Peripheral NO GROWTH IN 3 DAYS 09/24/16 16:00 Anaerobic Blood Culture - Preliminary Resulted Blood Peripheral NO GROWTH IN 3 DAYS 09/24/16 16:00 Gram Stain - Final Resulted Wound Foot 09/24/16 16:00 Wound Culture - Preliminary Resulted Staphylococcus Aureus Group B Beta Strep Gram Negative Song 09/24/16 16:30 Aerobic Blood Culture - Preliminary Resulted Blood Peripheral NO GROWTH IN 3 DAYS 09/24/16 16:30 Anaerobic Blood Culture - Preliminary Resulted Blood Peripheral NO GROWTH IN 3 DAYS Exam-Podiatry Constitutional General appearance: comfortable Nutritional status: normal Orientation: alert and oriented x3 Dermatological Exam Skin Temp - Right: Within Normal Limits Skin Texture - Right: Within Normal Limits Skin Elasticity - Right: Within Normal Limits Skin Tugor - Right: Within Normal Limits Hair Growth - Right: Within Normal Limits Pigmentation - Right: Within Normal Limits Skin Temp - Left: Within Normal Limits Skin Texture - Left: Within Normal Limits Skin Elasticity - Left: Within Normal Limits Skin Tugor - Left: Within Normal Limits Hair Growth - Left: Within Normal Limits Pigmentation - Left: Within Normal Limits Vascular/Lymphatic Exam R Dorsails Pedis: Palpable L Dorsails Pedis: Palpable R Posterior Tibial: Palpable L Posterior Tibial: Palpable Neurologic Exam Present on right: Tingling, Paraesthesia Present on left: Tingling, Paraesthesia Musculoskeletal Exam Details Open guillotine amputation at the transmetatarsal level right foot. Muscle Strength Dorsiflexion (Right): Normal Plantarflexion (Right): Normal Inversion (Right): Normal Eversion (Right): Normal Digital (Right): Normal Dorsiflexion (Left): Normal Plantarflexion (Left): Normal Inversion (Left): Normal Eversion (Left): Normal Digital (Left): Normal Foot Range of Motion Dorsiflexion (Right): Normal Plantarflexion (Right): Normal Inversion (Right): Normal Eversion (Right): Normal Digital (Right): Normal Dorsiflexion (Left): Normal Plantarflexion (Left): Normal Inversion (Left): Normal Eversion (Left): Normal Digital (Left): Normal Assessment & Plan Diagnosis: (1) Diabetic foot ulcer Status: Acute (2) Osteomyelitis of right foot Status: Resolved A/P PLAN: Continue negative pressure wound VAC. Tomorrow I will change the VAC and obtained a new culture and sensitivity. Once patient has a granulating base I will apply a split-thickness skin graft. Discussed with infectious disease. Continue to follow. Problem Qualifiers (1) Diabetic foot ulcer: Qualified Code: E11.621 - Diabetic ulcer of other part of right foot associated with type 2 diabetes mellitus, unspecified ulcer stage (2) Osteomyelitis of right foot: Qualified Code: M86.171 - Other acute osteomyelitis of right foot Dustin Stout DPM Sep 27, 2016 12:49
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
[2016-09-28] VITALS (7 sets, daily range): BP systolic 113–148; BP diastolic 60–78; PULSE 51–58; RESP 16–20; TEMP 96.2–98; O2SAT 95–98
[2016-09-28] MEDS: HEPARIN SODIUM - SQ 10,000 UNITS/ML VIAL SQ SCH ×3 (02:26→17:32)
[2016-09-28] MEDS: HYDROmorphone HCL PF 1 MG/ML VIAL IV PRN ×4 (03:56→23:04)
[2016-09-28] MEDS: INSULIN ASPART SUPPLEMENTAL SCALE SQ SCH ×4 (05:05→20:10)
[2016-09-28] MEDS: PIPERACIL-TAZO 4.5 GM PREMIX 100 ML IV SCH ×3 (06:11→20:17)
[2016-09-28 06:20] LABS: AUTOMATED NEUTROPHIL # 2.5 TH/MM3 (1.8-7.7); BASOPHIL % 0.9 % (0.0-2.0); EOSINOPHIL # 0.1 TH/MM3 (0-0.4); EOSINOPHIL % 2.9 % (0.0-4.0); HEMATOCRIT 37.3 % (39.0-51.0); HEMO FLAGS DIFF FINAL; LYMPH % 33.4 % (9.0-44.0); LYMPHOCYTE # 1.5 TH/MM3 (1.0-4.8); MEAN CELL VOLUME 89.4 FL (80.0-100.0); MEAN CORPUSCULAR HEMOGLOBIN 30.9 PG (27.0-34.0); MEAN CORPUSCULAR HGB CONC 34.5 % (32.0-36.0); NEUT % 55.8 % (16.0-70.0); PLATELET COUNT 108 TH/MM3 (150-450); RED BLOOD COUNT 4.17 MIL/MM3 (4.50-5.90); RED CELL DISTRIBUTION WIDTH 14.4 % (11.6-17.2); WHITE BLOOD COUNT 4.5 TH/MM3 (4.0-11.0)
[2016-09-28 06:53] LABS: ALKALINE PHOSPHATASE 92 U/L (45-117); ALT (GPT) 285 U/L (12-78); ANION GAP 6 MEQ/L (5-15); AST (GOT) 208 U/L (15-37); BICARBONATE 29.9 MEQ/L (21.0-32.0); BLOOD UREA NITROGEN 4 MG/DL (7-18); CHLORIDE 103 MEQ/L (98-107); GLOMERULAR FILTRATION RATE 117 ML/MIN (>89); MAGNESIUM 2.2 MG/DL (1.5-2.5); POTASSIUM 3.8 MEQ/L (3.5-5.1); SODIUM (NA) 139 MEQ/L (136-145); TOTAL BILIRUBIN ADULT 0.9 MG/DL (0.2-1.0)
[2016-09-28] MEDS: LISINOPRIL 10 MG TAB PO SCH (08:56)
[2016-09-28] MEDS: DOCUSATE SODIUM 50 MG/SENNA 8.6 MG TAB PO SCH ×2 (08:56→20:09)
[2016-09-28] MEDS: SODIUM CHLORIDE 0.9% FLUSH 10 ML FLUSH IV FLUSH SCH ×2 (08:58→20:17)
[2016-09-28] MEDS: VANCOMYCIN INJ 1,500 MG in SODIUM CHLORID 0.9% 500 ML INJ 500 ML IV SCH (11:42)
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
[2016-09-29 00:53] VITALS: BP 133/77; PULSE 78; RESP 18; TEMP 96.9; O2SAT 97
[2016-09-29] MEDS: VANCOMYCIN INJ 1,500 MG in SODIUM CHLORID 0.9% 500 ML INJ 500 ML IV SCH ×2 (03:54→12:00)
[2016-09-29] MEDS: HEPARIN SODIUM - SQ 10,000 UNITS/ML VIAL SQ SCH ×3 (03:54→20:29)
[2016-09-29] MEDS: HYDROmorphone HCL PF 1 MG/ML VIAL IV PRN ×4 (05:52→18:32)
[2016-09-29] MEDS: INSULIN ASPART SUPPLEMENTAL SCALE SQ SCH ×4 (05:56→20:30)
[2016-09-29] MEDS: PIPERACIL-TAZO 4.5 GM PREMIX 100 ML IV SCH ×3 (05:56→20:17)
[2016-09-29 08:00] VITALS: BP 149/73; PULSE 58; RESP 17; TEMP 96; O2SAT 97
[2016-09-29] MEDS: SODIUM CHLORIDE 0.9% FLUSH 10 ML FLUSH IV FLUSH SCH ×2 (09:00→20:18)
--- NOTE | 2016-09-29 09:01 | PD.POD ---
Subjective Podiatric Problems Open transmetatarsal amputation right foot Pain scale used: 0-10 numeric scale Pain score: 0 Remarks 51-year-old male diabetic 3 days status post open guillotine amputation at the transmetatarsal level of the right foot. Patient without complaints. His wound VAC is running well. Patient currently getting abdominal ultrasound. Past Med/Surg/Social History Past Medical History PFSH Reviewed: Yes Endocrine: REPORTS HX OF: Diabetes mellitus Respiratory: REPORTS HX OF: Other respiratory history (traumatic pneumothorax years ago. No sequela) Cardiovascular: REPORTS HX OF: Hypertension Neurologic: REPORTS HX OF: Peripheral neuropathy (right lower extremity secondary to trauma) Psychiatric: REPORTS HX OF: Anxiety, Depression Past Surgical History Gastrointestinal: DENIES HX OF: Colectomy, total Musculoskeletal: REPORTS HX OF: Other musculoskeletal srg (amputation of right first ray, previous history of fifth metatarsal head re) Breast: DENIES HX OF: Mastectomy, bilateral, Mastectomy, left, Mastectomy, right Social History Smoking Status: Current Every Day Smoker Review of Systems Notes No changes in his 14 point review of systems exam from the previous visit Objective Vital Signs Vital Signs Date Time Temp Pulse Resp B/P Pulse Ox O2 Delivery O2 Flow Rate FiO2 09/29/16 08:00 96.0 58 17 149/73 97 09/29/16 00:53 96.9 78 18 133/77 97 09/28/16 20:00 96.2 58 18 141/78 95 09/28/16 16:00 96.3 51 16 120/60 98 09/28/16 12:00 96.2 52 16 131/66 98 09/28/16 09:59 16 Coded Allergies: No Known Allergies (Verified , 09/24/16) Medications and IVs Current Medications Piperacillin Sod/ Tazobactam Sod 100 ml @ 200 mls/hr ONCE STAT IV Last administered on 09/24/16 16:16; Start 09/24/16 at 15:53; Stop 09/24/16 at 16:22 ; Status DC Vancomycin HCl/ Sodium Chloride (Vancomycin Inj/ NS 250 ml Inj) 250 ml @ 250 mls/hr ONCE STAT IV Last administered on 09/24/16 17:05; Start 09/24/16 at 15 :53; Stop 09/24/16 at 16:52; Status DC Morphine Sulfate (Morphine Inj) 4 mg ONCE ONCE IV PUSH Last administered on 17:11; Start 09/24/16 at 17:15; Stop 09/24/16 at 17:16; Status DC Ondansetron HCl (Zofran Inj) 4 mg ONCE ONCE IV PUSH Last administered on 17:11; Start 09/24/16 at 17:15; Stop 09/24/16 at 17:16; Status DC Sodium Chloride (NS Flush) 2 ml UNSCH PRN IV FLUSH FLUSH AFTER USING IV ACCESS ; Start 09/24/16 at 18:45; Stop 09/26/16 at 17:36; Status DC Sodium Chloride (NS Flush) 2 ml BID IV FLUSH Last administered on 09/26/16 09: 08; Start 09/24/16 at 21:00; Stop 09/26/16 at 17:36; Status DC Acetaminophen (Tylenol) 650 mg Q4H PRN PO TEMP > 100.4; Start 09/24/16 at 18:45 Ondansetron HCl (Zofran Inj) 4 mg Q6H PRN IVP NAUSEA OR VOMITING Last administered on 09/27/16 07:57; Start 09/24/16 at 18:45 Heparin Sodium (Porcine) (Heparin Inj) 5,000 units Q8H SQ Last administered on 09/29/16 03:54; Start 09/24/16 at 18:45 Senna/Docusate Sodium (Chey-Colace) 1 tab BID PO Last administered on 08:56; Start 09/24/16 at 21:00 Magnesium Hydroxide (Milk Of Magnesia Liq) 30 ml Q12H PRN PO MILD - MODERATE CONSTIPATION Last administered on 09/27/16 22:53; Start 09/24/16 at 18:45 Sennosides (Senokot) 17.2 mg Q12H PRN PO MODERATE - SEVERE CONSTIPATION; Start 09/24/16 at 18:45 Bisacodyl (Dulcolax Supp) 10 mg DAILY PRN RECTAL SEVERE CONSITIPATION; Start at 18:45 Lactulose 30 ml 30 ml DAILY PRN PO SEVERE CONSITIPATION Last administered on 14:02; Start 09/24/16 at 18:45 Piperacillin Sod/ Tazobactam Sod 100 ml @ 200 mls/hr Q8HR IV Last administered on 09/29/16 05:56; Start 09/24/16 at 22:00 Pharmacy Profile Note 0 ml @ 0 mls/hr UNSCH OTHER ; Start 09/24/16 at 18:45 Vancomycin HCl/ Sodium Chloride (Vancomycin Inj/ NS 250 ml Inj) 250 ml @ 250 mls/hr Q8H IV Last administered on 09/27/16 04:23; Start 09/24/16 at 21:00; Stop 09/27/16 at 08:47; Status DC Dextrose (D50w (Vial) Inj) 50 ml UNSCH PRN IV HYPOGLYCEMIA-SEE COMMENTS; Start 09/24/16 at 18:45 Glucagon (Glucagon Inj) 1 mg UNSCH PRN OTHER HYPOGLYCEMIA-SEE COMMENTS; Start 09/24/16 at 18:45 Insulin Aspart (NovoLOG SUPPLEMENTAL SCALE) 1 ACHS SLIDING SCALE SQ Last administered on 09/25/16 22:32; Start 09/24/16 at 21:00 Lisinopril (Prinivil) 20 mg DAILY PO Last administered on 09/25/16 08:02; Start 09/24/16 at 19:00; Stop 09/26/16 at 16:15; Status DC Oxycodone/ Acetaminophen (Percocet 5-325 Mg) 1 tab Q4H PRN PO PAIN SCALE 1 TO 4 Last administered on 09/25/16 12:51; Start 09/24/16 at 19:00; Stop 09/26/16 at 17:41; Status DC Oxycodone/ Acetaminophen (Percocet 5-325 Mg) 2 tab Q4H PRN PO PAIN SCALE 5 TO 10 Last administered on 09/26/16 15:31; Start 09/24/16 at 19:00; Stop 09/26/16 at 17:41; Status DC Morphine Sulfate (Morphine Inj) 4 mg Q3H PRN IV PUSH BREAKTHROUGH PAIN Last administered on 09/26/16 13:28; Start 09/24/16 at 19:00; Stop 09/26/16 at 17:40 ; Status DC Flumazenil (Romazicon Inj) 0.2 mg Q1M PRN IV PUSH SEE LABEL COMMENTS; Start 01/31 at 19:00 Lorazepam (Ativan) 1 mg Q4H PRN PO CIWA 8 - 10; Start 09/24/16 at 19:00 Lorazepam (Ativan Inj) 1 mg Q4H PRN IV PUSH CIWA 8 - 10; Start 09/24/16 at 19: 00 Lorazepam (Ativan) 2 mg Q2H PRN PO CIWA 11-14; Start 09/24/16 at 19:00 Lorazepam (Ativan Inj) 2 mg Q2H PRN IV PUSH CIWA 11-14; Start 09/24/16 at 19:00 Lorazepam (Ativan Inj) 2 mg Q1H PRN IV PUSH CIWA 15-20; Start 09/24/16 at 19:00 Lorazepam (Ativan Inj) 2 mg Q15M PRN IV PUSH CIWA > 20; Start 09/24/16 at 19:00 Miscellaneous Information SPECIFIC LAB TO BE DRAWN: VANCOMYCIN TROUGH DATE TO... ONCE ONCE .XX Last administered on 09/26/16 04:45; Start 09/26/16 at 04 :45; Stop 09/26/16 at 04:46; Status DC Gadodiamide (Omniscan Pf Inj) 20 ml STK-MED ONCE IV Last administered on 20:34; Start 09/24/16 at 20:34; Stop 09/24/16 at 20:35; Status DC Iohexol (Omnipaque 350 Inj) 100 ml STK-MED ONCE IV Last administered on 21:23; Start 09/24/16 at 21:23; Stop 09/24/16 at 21:24; Status DC Temazepam 7.5 mg 7.5 mg ONCE ONCE PO Last administered on 09/26/16 01:19; Start 09/26/16 at 00:30; Stop 09/26/16 at 00:31; Status DC Lactated Ringer's (Lr 1000 ml Inj) 1,000 ml @ 30 mls/hr Q24H PRN IV SEE LABEL COMMENTS; Start 09/26/16 at 04:45; Stop 09/29/16 at 04:44; Status DC Insulin Human Regular (NovoLIN R INJ) See Protocol Table ... ORCHESTRATOR PRN SQ SEE PROTOCOL TABLE; Start 09/26/16 at 04:45; Stop 09/29/16 at 04:44; Status DC Miscellaneous Information SPECIFIC LAB TO BE MECHE... ONCE ONCE .XX Last administered on 09/27/16 04:23; Start 09/27/16 at 04:45; Stop 09/27/16 at 04:46 ; Status DC Bupivacaine HCl (Marcaine Pf 0.5% Inj) 30 ml STK-MED ONCE .ROUTE Last administered on 09/26/16 16:45; Start 09/26/16 at 15:59; Stop 09/26/16 at 16:00 ; Status DC Lidocaine HCl (Xylocaine 1% Inj (50 ml)) 50 ml STK-MED ONCE .ROUTE ; Start 09/26 at 15:59; Stop 09/26/16 at 16:00; Status DC Midazolam HCl (Versed Inj) 2 mg STK-MED ONCE .ROUTE ; Start 09/26/16 at 16:07; Stop 09/26/16 at 16:08; Status DC Fentanyl Citrate (fentaNYL INJ) 250 mcg STK-MED ONCE .ROUTE ; Start 09/26/16 at 16:07; Stop 09/26/16 at 16:08; Status DC Famotidine (Pepcid Inj) 20 mg STK-MED ONCE .ROUTE ; Start 09/26/16 at 16:08; Stop 09/26/16 at 16:09; Status DC Lisinopril (Prinivil) 10 mg DAILY PO Last administered on 09/28/16 08:56; Start 09/27/16 at 09:00 Sodium Chloride (NS Flush) 2 ml UNSCH PRN IV FLUSH FLUSH AFTER USING IV ACCESS ; Start 09/26/16 at 17:15 Sodium Chloride (NS Flush) 2 ml BID IV FLUSH Last administered on 09/28/16 20: 17; Start 09/26/16 at 21:00 Miscellaneous Information (Post-op Orders (for Pharmacy)) STAT ONCE XX ; Start 09/26/16 at 17:15; Stop 09/26/16 at 17:38; Status DC Oxycodone HCl (Roxicodone) 10 mg Q4H PRN PO PAIN SCALE 6 TO 10 Last administered on 09/29/16 04:47; Start 09/26/16 at 17:15 Acetaminophen (Ofirmev Inj) 1,000 mg Q6H IV Last administered on 09/27/16 11: 47; Start 09/26/16 at 18:00; Stop 09/27/16 at 12:01; Status DC Hydromorphone HCl (Dilaudid Pf Inj) 1 mg Q3H PRN IV BREAKTHROUGH PAIN Last administered on 09/29/16 05:52; Start 09/26/16 at 17:15 Oxycodone HCl (Roxicodone) 5 mg Q4H PRN PO PAIN SCALE 3 TO 5; Start 09/26/16 at 17:15 Naloxone HCl (Narcan Inj) 0.4 mg UNSCH PRN IV SEE LABEL COMMENTS; Start at 17:15 Miscellaneous Information ALL NURSING DEPARTME... UNSCH PRN .XX SEE LABEL COMMENTS; Start 09/26/16 at 17:16; Stop 09/27/16 at 17:15; Status DC Morphine Sulfate (*morphine INJ PERIprocedure ONLY) 8 mg STK-MED ONCE .ROUTE Last administered on 09/26/16 17:57; Start 09/26/16 at 17:55; Stop 09/26/16 at 17:56; Status DC Morphine Sulfate 8 mg 8 mg STK-MED ONCE .ROUTE Last administered on 09/26/16 18:14; Start 09/26/16 at 18:14; Stop 09/26/16 at 18:15; Status DC Vancomycin HCl/ Sodium Chloride (Vancomycin Inj/ NS 500 ml Inj) 515 ml @ 250 mls/hr Q12H IV Last administered on 09/29/16 03:54; Start 09/27/16 at 12:00 Miscellaneous Information SPECIFIC LAB TO BE DRAWN:VANCOMYCIN TROUGH DATE TO... ONCE ONCE .XX ; Start 09/29/16 at 11:45; Stop 09/29/16 at 11:46 Artificial Tears (Tears Naturale Opth Soln) 1 drop Q4H PRN EACH EYE DRY EYE; Start 09/28/16 at 14:30 Other Results Laboratory Tests Test 09/28/16 04:31 White Blood Count 4.5 TH/MM3 Red Blood Count 4.17 MIL/MM3 Hemoglobin 12.9 GM/DL Hematocrit 37.3 % Mean Corpuscular Volume 89.4 FL Mean Corpuscular Hemoglobin 30.9 PG Mean Corpuscular Hemoglobin 34.5 % Concent Red Cell Distribution Width 14.4 % Platelet Count 108 TH/MM3 Mean Platelet Volume 9.3 FL Neutrophils (%) (Auto) 55.8 % Lymphocytes (%) (Auto) 33.4 % Monocytes (%) (Auto) 7.0 % Eosinophils (%) (Auto) 2.9 % Basophils (%) (Auto) 0.9 % Neutrophils # (Auto) 2.5 TH/MM3 Lymphocytes # (Auto) 1.5 TH/MM3 Monocytes # (Auto) 0.3 TH/MM3 Eosinophils # (Auto) 0.1 TH/MM3 Basophils # (Auto) 0.0 TH/MM3 CBC Comment DIFF FINAL Differential Comment Laboratory Tests Test 09/28/16 04:31 Sodium Level 139 MEQ/L Potassium Level 3.8 MEQ/L Chloride Level 103 MEQ/L Carbon Dioxide Level 29.9 MEQ/L Anion Gap 6 MEQ/L Blood Urea Nitrogen 4 MG/DL Creatinine 0.71 MG/DL Estimat Glomerular Filtration 117 ML/MIN Rate Random Glucose 108 MG/DL Calcium Level 8.3 MG/DL Phosphorus Level 2.0 MG/DL Magnesium Level 2.2 MG/DL Total Bilirubin 0.9 MG/DL Direct Bilirubin 0.5 MG/DL Aspartate Amino Transf 208 U/L (AST/SGOT) Alanine Aminotransferase 285 U/L (ALT/SGPT) Alkaline Phosphatase 92 U/L Total Protein 7.0 GM/DL Albumin 3.2 GM/DL Exam-Podiatry Constitutional General appearance: comfortable Nutritional status: normal Orientation: alert and oriented x3 Dermatological Exam Skin Temp - Right: Within Normal Limits Skin Texture - Right: Within Normal Limits Skin Elasticity - Right: Within Normal Limits Skin Tugor - Right: Within Normal Limits Hair Growth - Right: Within Normal Limits Pigmentation - Right: Within Normal Limits Skin Temp - Left: Within Normal Limits Skin Texture - Left: Within Normal Limits Skin Elasticity - Left: Within Normal Limits Skin Tugor - Left: Within Normal Limits Hair Growth - Left: Within Normal Limits Pigmentation - Left: Within Normal Limits Ulcers: Location/Measurements Open guillotine amputation site right foot. VAC is intact. VAC sponge was removed. Good granulation seen. No signs of infection or purulence. No odor. Vascular/Lymphatic Exam R Dorsails Pedis: Palpable L Dorsails Pedis: Palpable R Posterior Tibial: Palpable L Posterior Tibial: Palpable Neurologic Exam Present on right: Tingling, Paraesthesia Present on left: Tingling, Paraesthesia Musculoskeletal Exam Details Transmetatarsal amputation right foot Muscle Strength Dorsiflexion (Right): Normal Plantarflexion (Right): Normal Inversion (Right): Normal Eversion (Right): Normal Digital (Right): Normal Dorsiflexion (Left): Normal Plantarflexion (Left): Normal Inversion (Left): Normal Eversion (Left): Normal Digital (Left): Normal Foot Range of Motion Dorsiflexion (Right): Normal Plantarflexion (Right): Normal Inversion (Right): Normal Eversion (Right): Normal Digital (Right): Normal Dorsiflexion (Left): Normal Plantarflexion (Left): Normal Inversion (Left): Normal Eversion (Left): Normal Digital (Left): Normal Assessment & Plan Diagnosis: (1) Diabetic foot ulcer Status: Acute (2) Osteomyelitis of right foot Status: Resolved A/P PLAN: Continue negative pressure wound VAC. Nursing will change the VAC today and obtain a new culture and sensitivity. Once patient has a granulating base I will apply a split-thickness skin graft. Discussed with nurse Continue to follow. Problem Qualifiers (1) Diabetic foot ulcer: Qualified Code: E11.621 - Diabetic ulcer of other part of right foot associated with type 2 diabetes mellitus, unspecified ulcer stage (2) Osteomyelitis of right foot: Qualified Code: M86.171 - Other acute osteomyelitis of right foot Dustin Stout DPM Sep 29, 2016 09:01
[2016-09-29] MEDS: LISINOPRIL 10 MG TAB PO SCH (10:08)
[2016-09-29] MEDS: DOCUSATE SODIUM 50 MG/SENNA 8.6 MG TAB PO SCH ×2 (10:08→20:17)
--- NOTE | 2016-09-29 10:40 | RADRPT ---
EXAM DATE/TIME: 09/29/2016 08:27 [facility] COMPARISON: No previous studies available for comparison. INDICATIONS : Increased lab values. MEDICAL HISTORY : Hypertension. Arthritis. Neck pain. Glasses. Missing teeth. Neurologic problems. Peripheral neuropa thy right lower extremity secondary to trauma. Head trauma. Short term memory loss. Numbness. Emphyse ma. Asthma. Swelling. Weak urine stream. Diabetes. Back problems. Liver disease. Diabetes. SURGICAL HISTORY : Eyelid surgery. Nerve grafts in legs. Lobectomy. Amputation of right first ray. Previous fifth metata rsal head removal. Part of liver removed 1987. ENCOUNTER: Initial ACUITY: 2 days PAIN SCORE: 3/10 LOCATION: Bilateral upper quadrant MEASUREMENTS: LIVER: 19.3 cm length COMMON DUCT: 19 mm RIGHT KIDNEY: 12.0 x 5.5 x 6.9 cm SPLEEN: 15.7 cm length FINDINGS: There is evidence of an echogenic focus within the common bile duct measuring 12 mm consistent with p robable choledocholithiasis. Correlation with alkaline phosphatase and bilirubin levels is suggested to rule out biliary obstruction. The gallbladder has been resected. Hepatosplenomegaly is noted. No focal hepatic mass is noted. There is hepatopetal flow within the portal vein. There is poor vis ualization of the pancreas due to shadowing bowel gas. The right kidney is unremarkable. CONCLUSION: 1. Echogenic focus within the common bile duct measuring 12 mm suggestive of choledocholithiasis. C orrelation with alkaline phosphatase and bilirubin levels is suggested to rule out biliary obstructio n. 2. Hepatosplenomegaly. Andrea Mcmahon MD on September 29, 2016 at 10:24 Board Certified Radiologist. This report was verified electronically.
[2016-09-29] MEDS ORDERED: PHARMACY ORDERED LAB ONE (11:45)
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
--- NOTE | 2016-09-29 17:29 | HHI.PR ---
Subjective Remarks Both eyes getting more red, burning, blurry. Mucous discharge OU. Also eyelids are getting dry and irritated. Objective Vital Signs Date Time Temp Pulse Resp B/P Pulse Ox O2 Delivery O2 Flow Rate FiO2 09/29/16 08:00 96.0 58 17 149/73 97 09/29/16 00:53 96.9 78 18 133/77 97 09/28/16 20:00 96.2 58 18 141/78 95 I/O 09/28/16 09/28/16 09/28/16 09/29/16 09/29/16 09/29/16 07:00 15:00 23:00 07:00 15:00 23:00 Intake Total 297 ml 340 ml 580 ml 980 ml Output Total 800 ml 900 ml 50 ml Balance -503 ml -560 ml 530 ml 980 ml Intake Oral 340 ml 480 ml 480 ml IV Total 297 ml 100 ml 500 ml Output Urine Total 800 ml 900 ml Drainage Total 50 ml # Voids 2 2 # Bowel Movements 0 Result Diagram: 09/28/16 0431 09/28/16 0431 Objective Remarks Va cc at near OD 20/20, OS 20/20 EOM full OU, no diplopia CVF full OU Pupils 2-1 no APD OU IOP normal to palpation OU Anterior exam OD - 4 eyelashes missing on RUL, dryness on eyelids, conj injection, mucous discharge, K clear, AC deep, pupil round, lens clear OS - dryness on eyelid, conj injection, mucous discharge, K clear, AC deep, pupil round, lens clear Assessment and Plan Problem List: (1) Conjunctivitis Plan: Start Tobradex ointment on eyelids QID. Tobradex drops QID OU. Advised patient this could be contagious - hand hygiene. Cool compresses. Will follow. Ruby Travis MD Sep 29, 2016 17:29
[2016-09-29] MEDS: TOBRAMYCIN/DEXAMETHASONE OPTH OINT 3.5 GM TUBE EACH EYE SCH ×2 (18:00→20:22)
[2016-09-29 18:02] VITALS: O2SAT 97
[2016-09-29] MEDS: TOBRAMYCIN 0.3%/DEXAMETHASONE 0.1% OPHT SUSP 5 ML BTL EACH EYE SCH ×2 (18:43→20:22)
[2016-09-29 20:16] VITALS: BP 135/70; PULSE 58; RESP 17; TEMP 97.8; O2SAT 98
[2016-09-29] MEDS: ARTIFICIAL TEARS OPTH SOLN 15 ML BTL EACH EYE PRN (20:17)
[2016-09-30] VITALS (7 sets, daily range): BP systolic 115–147; BP diastolic 63–83; PULSE 54–84; RESP 16–20; TEMP 96–97.5; O2SAT 92–97
[2016-09-30] MEDS: VANCOMYCIN INJ 2,000 MG in SODIUM CHLORID 0.9% 500 ML INJ 500 ML IV SCH ×2 (01:26→12:00)
[2016-09-30] MEDS: HYDROmorphone HCL PF 1 MG/ML VIAL IV PRN ×6 (01:34→23:18)
[2016-09-30] MEDS: HEPARIN SODIUM - SQ 10,000 UNITS/ML VIAL SQ SCH ×3 (02:41→17:41)
[2016-09-30] MEDS: PIPERACIL-TAZO 4.5 GM PREMIX 100 ML IV SCH ×3 (04:47→20:15)
[2016-09-30] MEDS: INSULIN ASPART SUPPLEMENTAL SCALE SQ SCH ×4 (04:57→20:12)
[2016-09-30] MEDS: DOCUSATE SODIUM 50 MG/SENNA 8.6 MG TAB PO SCH ×2 (08:05→20:22)
[2016-09-30] MEDS: LISINOPRIL 10 MG TAB PO SCH (08:05)
[2016-09-30] MEDS: SODIUM CHLORIDE 0.9% FLUSH 10 ML FLUSH IV FLUSH SCH ×2 (08:07→20:22)
[2016-09-30] MEDS: TOBRAMYCIN 0.3%/DEXAMETHASONE 0.1% OPHT SUSP 5 ML BTL EACH EYE SCH ×4 (08:07→21:00)
[2016-09-30] MEDS: TOBRAMYCIN/DEXAMETHASONE OPTH OINT 3.5 GM TUBE EACH EYE SCH ×4 (08:12→21:00)
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
[2016-09-30] MEDS ORDERED: NEOSTIGMINE 3 MG/3 ML SYR IV ONE (13:15)
[2016-09-30] MEDS ORDERED: ONDANSETRON HCL 4 MG/2 ML VIAL IV PUSH ONE (13:15)
[2016-09-30] MEDS ORDERED: PROPOFOL 200 MG/20 ML AMP IV ONE (13:15)
[2016-09-30] MEDS ORDERED: SODIUM CHLOR 0.9% 1000 ML BAG IV ONE (13:15)
[2016-09-30] MEDS ORDERED: IOHEXOL 350 MG/ML 100 ML BTL (for RAD DIAG) OTHER ONE (13:15)
--- NOTE | 2016-09-30 13:47 | GIPROC ---
[facility] [address] [facility]. [facility], [id number] ERCP PROCEDURE REPORT EXAM DATE: 09/30/2016 PATIENT NAME: Osito Peter MR #: [id number] BIRTHDATE: 1965 ATTENDING: James Lopez MD ORDER #: [id number] BALLET MASTER/MISTRESS: Regulo Sandoval and Belen Lloyd STATUS: inpatient INDICATIONS: The patient is a 51 yr old male here for an ERCP due to suspected or rule out bile duct stones PROCEDURE PERFORMED: ERCP with sphincterotomy/papillotomy ERCP with stent placement MEDICATIONS: Per Anesthesia and None. CONSENT: The patient understands the risks and benefits of the procedure and understands that these risks include, but are not limited to: sedation, allergic reaction, infection, perforation and/or bleeding. Alternative means of evaluation and treatment include, among others: physical exam, x-rays, and/or surgical intervention. The patient elects to proceed with this endoscopic procedure. medical equipment was checked for proper function. Hand hygiene and appropriate measures for infection prevention was taken. After the risks, benefits and alternatives of the procedure were thoroughly explained, Informed was verified, confirmed and timeout was successfully executed by the treatment team. With the patient in left semi-prone position, medications were administered intravenously.The Pentax [id number] was passed from the mouth into the esophagus and further advanced from the esophagus into the stomach. From stomach scope was directed to the second portion of the duodenum. Major papilla was aligned with the duodenoscope. The scope position was confirmed fluoroscopically. Rest of the findings/therapeutics are given below. The scope was then completely withdrawn from the patient and the procedure completed. The pulse, BP, and O2 saturation were monitored and documented by the physician and the nursing staff throughout the entire procedure. The patient was cared for as planned according to standard protocol. The patient was then discharged to recovery in stable condition and with appropriate post procedure care. There was a dilation of the CBD. ? filling defect at the distal cbd, multiple images ontained. 7 mm sphincterotomy and balloon sweeps x 2 11.5 mm balloon. No clear stones extruded but duct did not drain. 8.5 x 9cm stent placed. Good drainage seen at the end of the procedure. ADVERSE EVENT: There were no complications. IMPRESSIONS: ? filling defect at the distal cbd, multiple images ontained. 7 mm sphincterotomy and balloon sweeps x 2 11.5 mm balloon. No clear stones extruded but duct did not drain. 8.5 x 9cm stent placed. Good drainage seen at the end of the procedure RECOMMENDATIONS: 1. Follow-up: GI clinic 4 week(s) 2. Liver enzymes REPEAT EXAM: Return 8 weeks ERCP James Lopez MD eSigned: James Lopez MD 09/30/2016 1:47 PM cc:
[2016-09-30] MEDS ORDERED: DO NOT ADM ANY ANTICOAGULANT DRUGS PRN (14:00)
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
--- NOTE | 2016-09-30 16:39 | RADRPT ---
EXAM DATE/TIME: 09/30/2016 13:20 [facility] COMPARISON: FOOT RIGHT COMPLETE ([id number]), September 26, 2016, 17:39. INDICATIONS : Cholelithyasis, sphincterotomy, stent placement FLUORO TIME: 2.2 minutes IMAGE COUNT: 5 CONTRAST: Instilled by Ordering Physician MEDICAL HISTORY : Diabetes mellitus type II. Hypertension. Arthritis. Neck pain. Glasses. Missing teeth. Neurolog ic problems. SURGICAL HISTORY : Nerve grafts in legs. Lobectomy. Amputation of right first ray. ENCOUNTER: Subsequent ACUITY: 4 - 6 days PAIN SCORE: Non-responsive. LOCATION: bile duct FINDINGS: An ERCP was performed by the ordering physician. The images demonstrate the common bile duct to be mildly dilated. No stones are seen. Intrahepatic du cts are normal in caliber. At the conclusion of the study there is a stent evident within the common duct. CONCLUSION: ERCP as above. Meliton Jones MD on September 30, 2016 at 16:36 Board Certified Radiologist. This report was verified electronically.
[2016-10-01] VITALS: BP 141/81; PULSE 56; RESP 20; TEMP 96.5; O2SAT 98
[2016-10-01] MEDS: HEPARIN SODIUM - SQ 10,000 UNITS/ML VIAL SQ SCH ×3 (02:38→16:42)
[2016-10-01] MEDS: HYDROmorphone HCL PF 1 MG/ML VIAL IV PRN ×6 (02:46→22:52)
[2016-10-01] MEDS: PIPERACIL-TAZO 4.5 GM PREMIX 100 ML IV SCH ×3 (05:44→20:03)
[2016-10-01] MEDS: INSULIN ASPART SUPPLEMENTAL SCALE SQ SCH ×4 (05:46→20:10)
[2016-10-01 08:00] VITALS: BP 98/56; PULSE 53; RESP 16; TEMP 96.9; O2SAT 94
[2016-10-01] MEDS: LISINOPRIL 10 MG TAB PO SCH (08:03)
[2016-10-01] MEDS: TOBRAMYCIN/DEXAMETHASONE OPTH OINT 3.5 GM TUBE EACH EYE SCH ×4 (08:04→20:10)
[2016-10-01] MEDS: DOCUSATE SODIUM 50 MG/SENNA 8.6 MG TAB PO SCH ×2 (08:06→20:04)
[2016-10-01] MEDS: SODIUM CHLORIDE 0.9% FLUSH 10 ML FLUSH IV FLUSH SCH ×2 (08:06→20:04)
[2016-10-01] MEDS: TOBRAMYCIN 0.3%/DEXAMETHASONE 0.1% OPHT SUSP 5 ML BTL EACH EYE SCH ×4 (08:07→20:04)
[2016-10-01 08:27] VITALS: O2SAT 95
--- NOTE | 2016-10-01 10:29 | PD.POD ---
Subjective Podiatric Problems Open transmetatarsal amputation right foot Pain scale used: 0-10 numeric scale Pain score: 0 Remarks 51-year-old male diabetic 5 days status post open guillotine amputation at the transmetatarsal level of the right foot. Patient without complaints. His wound VAC is running well. Culture and sensitivity has no growth. Past Med/Surg/Social History Past Medical History PFSH Reviewed: Yes Endocrine: REPORTS HX OF: Diabetes mellitus Respiratory: REPORTS HX OF: Other respiratory history (traumatic pneumothorax years ago. No sequela) Cardiovascular: REPORTS HX OF: Hypertension Neurologic: REPORTS HX OF: Peripheral neuropathy (right lower extremity secondary to trauma) Psychiatric: REPORTS HX OF: Anxiety, Depression Past Surgical History Gastrointestinal: DENIES HX OF: Colectomy, total Musculoskeletal: REPORTS HX OF: Other musculoskeletal srg (amputation of right first ray, previous history of fifth metatarsal head re) Breast: DENIES HX OF: Mastectomy, bilateral, Mastectomy, left, Mastectomy, right Social History Smoking Status: Current Every Day Smoker Review of Systems Notes No changes in his 14 point review of systems/the Objective Vital Signs Vital Signs Date Time Temp Pulse Resp B/P Pulse Ox O2 Delivery O2 Flow Rate FiO2 10/01/16 08:27 95 21 10/01/16 08:00 96.9 53 16 98/56 94 10/01/16 00:00 96.5 56 20 141/81 98 09/30/16 20:00 96.8 67 20 142/77 97 09/30/16 17:47 92 21 09/30/16 16:48 18 09/30/16 16:00 96.0 60 17 115/74 92 09/30/16 14:25 59 16 122/63 95 Room Air 09/30/16 14:15 59 16 123/63 96 Room Air 09/30/16 14:00 75 16 128/73 98 Nasal Cannula 2 09/30/16 13:55 97.1 83 16 143/79 99 Simple Mask 6 09/30/16 11:33 97.5 84 16 147/83 94 Coded Allergies: No Known Allergies (Verified , 09/24/16) Medications and IVs Current Medications Piperacillin Sod/ Tazobactam Sod 100 ml @ 200 mls/hr ONCE STAT IV Last administered on 09/24/16t 16:16; Start 09/24/16 at 15:53; Stop 09/24/16 at 16:22 ; Status DC Vancomycin HCl/ Sodium Chloride (Vancomycin Inj/ NS 250 ml Inj) 250 ml @ 250 mls/hr ONCE STAT IV Last administered on 09/24/16 17:05; Start 09/24/16 at 15 :53; Stop 09/24/16 at 16:52; Status DC Morphine Sulfate (Morphine Inj) 4 mg ONCE ONCE IV PUSH Last administered on 17:11; Start 09/24/16 at 17:15; Stop 09/24/16 at 17:16; Status DC Ondansetron HCl (Zofran Inj) 4 mg ONCE ONCE IV PUSH Last administered on 17:11; Start 09/24/16 at 17:15; Stop 09/24/16 at 17:16; Status DC Sodium Chloride (NS Flush) 2 ml UNSCH PRN IV FLUSH FLUSH AFTER USING IV ACCESS ; Start 09/24/16 at 18:45; Stop 09/26/16 at 17:36; Status DC Sodium Chloride (NS Flush) 2 ml BID IV FLUSH Last administered on 09/26/16 09: 08; Start 09/24/16 at 21:00; Stop 09/26/16 at 17:36; Status DC Acetaminophen (Tylenol) 650 mg Q4H PRN PO TEMP > 100.4; Start 09/24/16 at 18:45 Ondansetron HCl (Zofran Inj) 4 mg Q6H PRN IVP NAUSEA OR VOMITING Last administered on 09/27/16 07:57; Start 09/24/16 at 18:45 Heparin Sodium (Porcine) (Heparin Inj) 5,000 units Q8H SQ Last administered on 10/01/16 02:38; Start 09/24/16 at 18:45 Senna/Docusate Sodium (Chey-Colace) 1 tab BID PO Last administered on 20:17; Start 09/24/16 at 21:00 Magnesium Hydroxide (Milk Of Magnesia Liq) 30 ml Q12H PRN PO MILD - MODERATE CONSTIPATION Last administered on 09/27/16 22:53; Start 09/24/16 at 18:45 Sennosides (Senokot) 17.2 mg Q12H PRN PO MODERATE - SEVERE CONSTIPATION; Start 09/24/16 at 18:45 Bisacodyl (Dulcolax Supp) 10 mg DAILY PRN RECTAL SEVERE CONSITIPATION; Start at 18:45 Lactulose 30 ml 30 ml DAILY PRN PO SEVERE CONSITIPATION Last administered on 14:02; Start 09/24/16 at 18:45 Piperacillin Sod/ Tazobactam Sod 100 ml @ 200 mls/hr Q8HR IV Last administered on 10/01/16 05:44; Start 09/24/16 at 22:00 Pharmacy Profile Note 0 ml @ 0 mls/hr UNSCH OTHER ; Start 09/24/16 at 18:45; Stop 09/30/16 at 15:31; Status DC Vancomycin HCl/ Sodium Chloride (Vancomycin Inj/ NS 250 ml Inj) 250 ml @ 250 mls/hr Q8H IV Last administered on 09/27/16 04:23; Start 09/24/16 at 21:00; Stop 09/27/16 at 08:47; Status DC Dextrose (D50w (Vial) Inj) 50 ml UNSCH PRN IV HYPOGLYCEMIA-SEE COMMENTS; Start 09/24/16 at 18:45 Glucagon (Glucagon Inj) 1 mg UNSCH PRN OTHER HYPOGLYCEMIA-SEE COMMENTS; Start 09/24/16 at 18:45 Insulin Aspart (NovoLOG SUPPLEMENTAL SCALE) 1 ACHS SLIDING SCALE SQ Last administered on 09/29/16 20:30; Start 09/24/16 at 21:00; Stop 09/29/16 at 21:50 ; Status DC Lisinopril (Prinivil) 20 mg DAILY PO Last administered on 09/25/16 08:02; Start 09/24/16 at 19:00; Stop 09/26/16 at 16:15; Status DC Oxycodone/ Acetaminophen (Percocet 5-325 Mg) 1 tab Q4H PRN PO PAIN SCALE 1 TO 4 Last administered on 09/25/16 12:51; Start 09/24/16 at 19:00; Stop 09/26/16 at 17:41; Status DC Oxycodone/ Acetaminophen (Percocet 5-325 Mg) 2 tab Q4H PRN PO PAIN SCALE 5 TO 10 Last administered on 09/26/16 15:31; Start 09/24/16 at 19:00; Stop 09/26/16 at 17:41; Status DC Morphine Sulfate (Morphine Inj) 4 mg Q3H PRN IV PUSH BREAKTHROUGH PAIN Last administered on 09/26/16 13:28; Start 09/24/16 at 19:00; Stop 09/26/16 at 17:40 ; Status DC Flumazenil (Romazicon Inj) 0.2 mg Q1M PRN IV PUSH SEE LABEL COMMENTS; Start 01/31 at 19:00 Lorazepam (Ativan) 1 mg Q4H PRN PO CIWA 8 - 10; Start 09/24/16 at 19:00 Lorazepam (Ativan Inj) 1 mg Q4H PRN IV PUSH CIWA 8 - 10; Start 09/24/16 at 19: 00 Lorazepam (Ativan) 2 mg Q2H PRN PO CIWA 11-14; Start 09/24/16 at 19:00 Lorazepam (Ativan Inj) 2 mg Q2H PRN IV PUSH CIWA 11-14; Start 09/24/16 at 19:00 Lorazepam (Ativan Inj) 2 mg Q1H PRN IV PUSH CIWA 15-20; Start 09/24/16 at 19:00 Lorazepam (Ativan Inj) 2 mg Q15M PRN IV PUSH CIWA > 20; Start 09/24/16 at 19:00 Miscellaneous Information SPECIFIC LAB TO BE DRAWN: VANCOMYCIN TROUGH DATE TO... ONCE ONCE .XX Last administered on 09/26/16 04:45; Start 09/26/16 at 04 :45; Stop 09/26/16 at 04:46; Status DC Gadodiamide (Omniscan Pf Inj) 20 ml STK-MED ONCE IV Last administered on 20:34; Start 09/24/16 at 20:34; Stop 09/24/16 at 20:35; Status DC Iohexol (Omnipaque 350 Inj) 100 ml STK-MED ONCE IV Last administered on 21:23; Start 09/24/16 at 21:23; Stop 09/24/16 at 21:24; Status DC Temazepam 7.5 mg 7.5 mg ONCE ONCE PO Last administered on 09/26/16 01:19; Start 09/26/16 at 00:30; Stop 09/26/16 at 00:31; Status DC Lactated Ringer's (Lr 1000 ml Inj) 1,000 ml @ 30 mls/hr Q24H PRN IV SEE LABEL COMMENTS; Start 09/26/16 at 04:45; Stop 09/29/16 at 04:44; Status DC Insulin Human Regular (NovoLIN R INJ) See Protocol Table ... [employer] PRN SQ SEE PROTOCOL TABLE; Start 09/26/16 at 04:45; Stop 09/29/16 at 04:44; Status DC Miscellaneous Information SPECIFIC LAB TO BE MECHE... ONCE ONCE .XX Last administered on 09/27/16 04:23; Start 09/27/16 at 04:45; Stop 09/27/16 at 04:46 ; Status DC Bupivacaine HCl (Marcaine Pf 0.5% Inj) 30 ml STK-MED ONCE .ROUTE Last administered on 09/26/16 16:45; Start 09/26/16 at 15:59; Stop 09/26/16 at 16:00 ; Status DC Lidocaine HCl (Xylocaine 1% Inj (50 ml)) 50 ml STK-MED ONCE .ROUTE ; Start 09/26 at 15:59; Stop 09/26/16 at 16:00; Status DC Midazolam HCl (Versed Inj) 2 mg STK-MED ONCE .ROUTE ; Start 09/26/16 at 16:07; Stop 09/26/16 at 16:08; Status DC Fentanyl Citrate (fentaNYL INJ) 250 mcg STK-MED ONCE .ROUTE ; Start 09/26/16 at 16:07; Stop 09/26/16 at 16:08; Status DC Famotidine (Pepcid Inj) 20 mg STK-MED ONCE .ROUTE ; Start 09/26/16 at 16:08; Stop 09/26/16 at 16:09; Status DC Lisinopril (Prinivil) 10 mg DAILY PO Last administered on 09/30/16 08:05; Start 09/27/16 at 09:00 Sodium Chloride (NS Flush) 2 ml UNSCH PRN IV FLUSH FLUSH AFTER USING IV ACCESS ; Start 09/26/16 at 17:15 Sodium Chloride (NS Flush) 2 ml BID IV FLUSH Last administered on 10/01/16 08: 06; Start 09/26/16 at 21:00 Miscellaneous Information (Post-op Orders (for Pharmacy)) STAT ONCE XX ; Start 09/26/16 at 17:15; Stop 09/26/16 at 17:38; Status DC Oxycodone HCl (Roxicodone) 10 mg Q4H PRN PO PAIN SCALE 6 TO 10 Last administered on 10/01/16 08:06; Start 09/26/16 at 17:15 Acetaminophen (Ofirmev Inj) 1,000 mg Q6H IV Last administered on 09/27/16 11: 47; Start 09/26/16 at 18:00; Stop 09/27/16 at 12:01; Status DC Hydromorphone HCl (Dilaudid Pf Inj) 1 mg Q3H PRN IV BREAKTHROUGH PAIN Last administered on 10/01/16 10:19; Start 09/26/16 at 17:15 Oxycodone HCl (Roxicodone) 5 mg Q4H PRN PO PAIN SCALE 3 TO 5; Start 09/26/16 at 17:15 Naloxone HCl (Narcan Inj) 0.4 mg UNSCH PRN IV SEE LABEL COMMENTS; Start at 17:15 Miscellaneous Information ALL NURSING DEPARTME... UNSCH PRN .XX SEE LABEL COMMENTS; Start 09/26/16 at 17:16; Stop 09/27/16 at 17:15; Status DC Morphine Sulfate (*morphine INJ PERIprocedure ONLY) 8 mg STK-MED ONCE .ROUTE Last administered on 09/26/16 17:57; Start 09/26/16 at 17:55; Stop 09/26/16 at 17:56; Status DC Morphine Sulfate 8 mg 8 mg STK-MED ONCE .ROUTE Last administered on 09/26/16 18:14; Start 09/26/16 at 18:14; Stop 09/26/16 at 18:15; Status DC Vancomycin HCl/ Sodium Chloride (Vancomycin Inj/ NS 500 ml Inj) 515 ml @ 250 mls/hr Q12H IV Last administered on 09/29/16 12:00; Start 09/27/16 at 12:00; Stop 09/29/16 at 15:37; Status DC Miscellaneous Information SPECIFIC LAB TO BE DRAWN:VANCOMYCIN TROUGH DATE TO... ONCE ONCE .XX Last administered on 09/29/16 11:45; Start 09/29/16 at 11:45; Stop 09/29/16 at 11:46; Status DC Artificial Tears (Tears Naturale Opth Soln) 1 drop Q4H PRN EACH EYE DRY EYE Last administered on 09/29/16 20:17; Start 09/28/16 at 14:30 Tobramycin/ Dexamethasone (Tobradex Opth Oint) 1 applic QID EACH EYE ; Start at 18:00 Tobramycin/ Dexamethasone 1 drop 1 drop QID EACH EYE Last administered on 08:07; Start 09/29/16 at 18:00 Vancomycin HCl/ Sodium Chloride (Vancomycin Inj/ NS 500 ml Inj) 520 ml @ 250 mls/hr Q12H IV Last administered on 09/30/16 01:26; Start 09/30/16 at 00:00; Stop 09/30/16 at 15:31; Status DC Miscellaneous Information SPECIFIC LAB TO BE DRAWN:VANCOMYCIN TROUGH DATE TO... ONCE ONCE .XX ; Start 10/01/16 at 11:45; Stop 10/01/16 at 11:45; Status DC Insulin Aspart (NovoLOG SUPPLEMENTAL SCALE) 1 ACHS SLIDING SCALE SQ Last administered on 10/01/16 05:46; Start 09/30/16 at 07:00 Fentanyl Citrate (fentaNYL INJ) 100 mcg STK-MED ONCE .ROUTE ; Start 09/30/16 at 12:56; Stop 09/30/16 at 12:57; Status DC Miscellaneous Information ALL NURSING DEPARTME... UNSCH PRN .XX SEE LABEL COMMENTS; Start 09/30/16 at 14:00; Stop 10/01/16 at 13:59 Propofol (Diprivan 200 Mg/20 ml Inj) 500 mg STK-MED ONCE IV ; Start 09/30/16 at 13:15; Stop 09/30/16 at 18:56; Status DC Neostigmine Methylsulfate (Prostigmin Inj) 3 mg STK-MED ONCE IV ; Start at 13:15; Stop 09/30/16 at 18:56; Status DC Ondansetron HCl (Zofran Inj) 4 mg STK-MED ONCE IV PUSH ; Start 09/30/16 at 13:15 ; Stop 09/30/16 at 18:56; Status DC Sodium Chloride (NS 1000 ml Inj) 1,000 ml STK-MED ONCE IV ; Start 09/30/16 at 13 :15; Stop 09/30/16 at 19:00; Status DC Iohexol (Omnipaque 350 Inj) 100 ml STK-MED ONCE OTHER Last administered on 09/30t 13:15; Start 09/30/16 at 13:15; Stop 09/30/16 at 19:13; Status DC Other Results Laboratory Tests Test 09/30/16 03:57 Creatinine 0.73 MG/DL Estimat Glomerular Filtration 113 ML/MIN Rate Microbiology Date/Time Procedure Status Source Growth 09/29/16 09:38 Cancelled Wound Foot 09/29/16 10:49 Gram Stain - Final Resulted Wound Foot 09/29/16 10:49 Wound Culture - Preliminary Resulted Wound Foot NO GROWTH IN 48 HOURS. Exam-Podiatry Constitutional General appearance: comfortable Nutritional status: normal Orientation: alert and oriented x3 Dermatological Exam Skin Temp - Right: Within Normal Limits Skin Texture - Right: Within Normal Limits Skin Elasticity - Right: Within Normal Limits Skin Tugor - Right: Within Normal Limits Hair Growth - Right: Within Normal Limits Pigmentation - Right: Within Normal Limits Skin Temp - Left: Within Normal Limits Skin Texture - Left: Within Normal Limits Skin Elasticity - Left: Within Normal Limits Skin Tugor - Left: Within Normal Limits Hair Growth - Left: Within Normal Limits Pigmentation - Left: Within Normal Limits Ulcers: Location/Measurements Open amputation site of right TMA shows good granulating base. There is no purulence. There is no odor. Vascular/Lymphatic Exam R Dorsails Pedis: Palpable L Dorsails Pedis: Palpable R Posterior Tibial: Palpable L Posterior Tibial: Palpable Neurologic Exam Present on right: Tingling, Paraesthesia Present on left: Tingling, Paraesthesia Musculoskeletal Exam Details Open guillotine TMA right foot Muscle Strength Dorsiflexion (Right): Normal Plantarflexion (Right): Normal Inversion (Right): Normal Eversion (Right): Normal Digital (Right): Normal Dorsiflexion (Left): Normal Plantarflexion (Left): Normal Inversion (Left): Normal Eversion (Left): Normal Digital (Left): Normal Foot Range of Motion Dorsiflexion (Right): Normal Plantarflexion (Right): Normal Inversion (Right): Normal Eversion (Right): Normal Digital (Right): Normal Dorsiflexion (Left): Normal Plantarflexion (Left): Normal Inversion (Left): Normal Eversion (Left): Normal Digital (Left): Normal Assessment & Plan Diagnosis: (1) Diabetic foot ulcer Status: Acute (2) Osteomyelitis of right foot Status: Resolved A/P PLAN: Discontinue negative pressure wound VAC. Scheduled the patient for split- thickness skin graft to the right foot for tomorrow. Discussed planned procedures with the patient. He wishes to proceed with the planned surgery. Preop orders written. Problem Qualifiers (1) Diabetic foot ulcer: Qualified Code: E11.621 - Diabetic ulcer of other part of right foot associated with type 2 diabetes mellitus, unspecified ulcer stage (2) Osteomyelitis of right foot: Qualified Code: M86.171 - Other acute osteomyelitis of right foot Dustin Stout DPM Oct 01, 2016 10:29
[2016-10-01] MEDS ORDERED: PHARMACY ORDERED LAB ONE (11:45)
[2016-10-01 12:00] VITALS: BP 105/62; PULSE 51; RESP 16; TEMP 96.8; O2SAT 97
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
--- NOTE | 2016-10-01 15:10 | HHI.GIFU ---
Subjective Remarks Pt resting in bed. He had 1/2 a meatball sub for lunch. He feels a bit bloated but no abd pain or nausea. (Elsa Sheth) Objective Vitals I&O Vital Signs Date Time Temp Pulse Resp B/P Pulse Ox O2 Delivery O2 Flow Rate FiO2 10/01/16 12:00 96.8 51 16 105/62 97 10/01/16 08:27 95 21 10/01/16 08:00 96.9 53 16 98/56 94 10/01/16 00:00 96.5 56 20 141/81 98 09/30/16 20:00 96.8 67 20 142/77 97 09/30/16 17:47 92 21 09/30/16 16:48 18 09/30/16 16:00 96.0 60 17 115/74 92 I/O 09/30/16 09/30/16 09/30/16 10/01/16 10/01/16 10/01/16 07:00 15:00 23:00 07:00 15:00 23:00 Intake Total 780 ml 900 ml 480 ml 720 ml Output Total 500 ml 0 ml 650 ml Balance 280 ml 900 ml -170 ml 720 ml Intake Oral 280 ml 0 ml 480 ml 720 ml IV Total 500 ml Other 900 ml Output Urine Total 500 ml 0 ml 500 ml Drainage Total 150 ml Estimated Blood Loss 0 ml # Voids 2 # Bowel Movements 0 1 Laboratory Date/Time Procedure Status Source Growth 09/29/16 10:49 Gram Stain - Final Resulted Wound Foot 09/29/16 10:49 Wound Culture - Preliminary Resulted Wound Foot NO GROWTH IN 48 HOURS. 09/29/16 09:38 Cancelled Wound Foot Imaging Last Impressions GI Procedure 09/30/16 0000 Signed Impressions: Service Date/Time: Friday, September 30, 2016 13:20 - CONCLUSION: ERCP as above. Meliton Jones MD Liver Ultrasound 09/29/16 0000 Signed Impressions: Service Date/Time: September 08:27 - CONCLUSION: 1. Echogenic focus within the common bile duct measuring 12 mm suggestive of choledocholithiasis. Correlation with alkaline phosphatase and bilirubin levels is suggested to rule out biliary obstruction. 2. Hepatosplenomegaly. Andrea Mcmahon MD Foot X-Ray 09/26/16 0000 Signed Impressions: Service Date/Time: Monday, September 26, 2016 17:39 - CONCLUSION: Status post amputation at the level of the proximal metatarsals. Andrea Mcmahon MD Chest X-Ray 09/26/16 0000 Signed Impressions: Service Date/Time: Monday, September 26, 2016 11:17 - CONCLUSION: Negative chest for acute disease. Wesley Jones MD FACR Foot MRI 09/24/16 0000 Signed Impressions: Service Date/Time: Saturday, September 24, 2016 20:25 - CONCLUSION: 1. Early changes of osteomyelitis at the distal second and third metatarsals and proximal phalanges of the second and third toes. There is air in surrounding soft tissues and fairly extensive cellulitis of the forefoot. Cain Sheriff MD Aorta w/Runoff CTA 09/24/16 0000 Signed Impressions: Service Date/Time: Saturday, September 24, 2016 21:05 - CONCLUSION: Very minimal inflow disease adductor hiatus on the left. Flow is better on the right than the left probably related to hyperemia. I don't see a source of emboli. Correlation with AVA's is suggested. Primary vessel disease is probably not the source of the nonhealing ulcer of the left foot. Wesley Jones MD FACR Physical Exam HEENT: PERRL; normocephalic; atraumatic; no jaundice. CHEST: CTA CARDIAC: RRR ABDOMEN: Soft, protuberant, mult scars, mild diffuse TTP, tympanitic; no hepatosplenomegaly; bowel sounds are present in all four quadrants. EXTREMITIES: No clubbing, cyanosis, or edema. Right foot partial amputation, bandaged SKIN: Normal; no rash; no jaundice. 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 (Elsa Sheth) Assessment and Plan Plan ASSESSMENT - elevated LFTs - asx. no jaundice. heavy ETOH. US --> 1. Echogenic focus within the common bile duct measuring 12 mm suggestive of choledocholithiasis. Correlation with alkaline phosphatase and bilirubin levels is suggested to rule out biliary obstruction. 2. Hepatosplenomegaly. s/p ERCP w/ sphincterotomy, stent 09-30-16--> ? filling defect distal CBD, no clear stone extruded but duct did not drain PLAN - HARRIET (pt tolerated meatball sub for lunch) - repeat ERCP 8w - f/u with GI in office 4w - monitor LFTs - supportive care THis pt seen by myself and DR Luo and this note is written on his behalf. (Elsa Sheth) Physician Comments Patient seen and examined Agree with above Continue with current supportive care Monitor labs (Pablo Luo MD) Elsa Sheth Oct 01, 2016 15:10 Pablo Luo MD Oct 01, 2016 15:36
[2016-10-01 16:00] VITALS: BP 119/54; PULSE 50; RESP 17; TEMP 96.7; O2SAT 92
[2016-10-01 20:00] VITALS: BP 112/67; PULSE 57; RESP 20; TEMP 97; O2SAT 97
[2016-10-02] VITALS: BP 123/75; PULSE 51; RESP 20; TEMP 96.9; O2SAT 96
[2016-10-02] MEDS: HEPARIN SODIUM - SQ 10,000 UNITS/ML VIAL SQ SCH ×3 (01:36→17:04)
[2016-10-02] MEDS: HYDROmorphone HCL PF 1 MG/ML VIAL IV PRN ×4 (02:53→22:06)
[2016-10-02] MEDS: PIPERACIL-TAZO 4.5 GM PREMIX 100 ML IV SCH ×3 (05:37→21:07)
[2016-10-02] MEDS: INSULIN ASPART SUPPLEMENTAL SCALE SQ SCH ×4 (06:24→21:35)
[2016-10-02] MEDS ORDERED: CHLORHEXIDINE GLUCONATE 2 % 1 PACK (2 CLOTHS) TOPICAL PRN (07:00)
[2016-10-02] MEDS ORDERED: LACTATED RINGER'S 1000 ML IV PRN (07:00)
[2016-10-02] MEDS ORDERED: POVIDONE IODINE 5% (ANTISEPSIS KIT) 4 APPLICATIONS EACH NARE PRN (07:00)
[2016-10-02] MEDS: TOBRAMYCIN 0.3%/DEXAMETHASONE 0.1% OPHT SUSP 5 ML BTL EACH EYE SCH ×4 (07:37→21:03)
[2016-10-02] MEDS: TOBRAMYCIN/DEXAMETHASONE OPTH OINT 3.5 GM TUBE EACH EYE SCH ×4 (07:37→21:00)
[2016-10-02] MEDS: DOCUSATE SODIUM 50 MG/SENNA 8.6 MG TAB PO SCH ×2 (07:38→20:56)
[2016-10-02] MEDS: LISINOPRIL 10 MG TAB PO SCH ×2 (07:38→10:05)
[2016-10-02] MEDS: SODIUM CHLORIDE 0.9% FLUSH 10 ML FLUSH IV FLUSH SCH ×2 (07:38→21:03)
[2016-10-02 08:00] VITALS: BP 139/74; PULSE 49; RESP 17; TEMP 95.9; O2SAT 99
[2016-10-02] MEDS ORDERED: PROPOFOL 200 MG/20 ML AMP IV ONE (09:56)
[2016-10-02] MEDS ORDERED: ONDANSETRON HCL 4 MG/2 ML VIAL IV PUSH ONE (09:56)
[2016-10-02] MEDS ORDERED: LACTATED RINGER'S 1000 ML INJ 1,000 ML IV ONE (09:56)
[2016-10-02] MEDS ORDERED: METOCLOPRAMIDE HCL 10 MG/2 ML VIAL ONE (11:02)
[2016-10-02] MEDS ORDERED: ACETAMINOPHEN 1000 MG/100 ML VIAL IV ONE (11:06)
[2016-10-02] MEDS ORDERED: BUPIVACAINE/EPINEPHRINE 0.5% PF 30 ML VIAL ONE (11:25)
[2016-10-02] MEDS ORDERED: MINERAL OIL 10 ML VIAL ONE (11:25)
--- NOTE | 2016-10-02 11:57 | HHI.GIFU ---
Subjective Remarks Pt resting in bed, watching TV. He says he had some abd pain last night. he ate a half a meatball sub yesterday. NPO today for foot surgery. (Elsa Sheth) Objective Vitals I&O Vital Signs Date Time Temp Pulse Resp B/P Pulse Ox O2 Delivery O2 Flow Rate FiO2 10/02/16 08:00 95.9 49 17 139/74 99 10/02/16 00:00 96.9 51 20 123/75 96 10/01/16 20:00 97.0 57 20 112/67 97 10/01/16 16:00 96.7 50 17 119/54 92 10/01/16 12:00 96.8 51 16 105/62 97 I/O 10/01/16 10/01/16 10/01/16 10/02/16 10/02/16 10/02/16 07:00 15:00 23:00 07:00 15:00 23:00 Intake Total 720 ml 720 ml 240 ml 200 ml Output Total 350 ml Balance 720 ml 720 ml 240 ml -150 ml Intake Oral 720 ml 720 ml 240 ml 0 ml IV Total 0 ml 200 ml Output Urine Total 350 ml # Voids 2 2 1 1 # Bowel Movements 1 0 Laboratory Date/Time Procedure Status Source Growth 09/29/16 10:49 Gram Stain - Final Complete Wound Foot 09/29/16 10:49 Wound Culture - Final Complete Wound Foot NO GROWTH IN 72 HRS.--AEROBICALLY OR ... 09/29/16 09:38 Cancelled Wound Foot Imaging Last Impressions GI Procedure 09/30/16 0000 Signed Impressions: Service Date/Time: Friday, September 30, 2016 13:20 - CONCLUSION: ERCP as above. Meliton Jones MD Liver Ultrasound 09/29/16 0000 Signed Impressions: Service Date/Time: September 08:27 - CONCLUSION: 1. Echogenic focus within the common bile duct measuring 12 mm suggestive of choledocholithiasis. Correlation with alkaline phosphatase and bilirubin levels is suggested to rule out biliary obstruction. 2. Hepatosplenomegaly. Andrea Mcmahon MD Foot X-Ray 09/26/16 0000 Signed Impressions: Service Date/Time: Monday, September 26, 2016 17:39 - CONCLUSION: Status post amputation at the level of the proximal metatarsals. Andrea Mcmahon MD Chest X-Ray 09/26/16 0000 Signed Impressions: Service Date/Time: Monday, September 26, 2016 11:17 - CONCLUSION: Negative chest for acute disease. Wesley Jones MD FACR Foot MRI 09/24/16 0000 Signed Impressions: Service Date/Time: Saturday, September 24, 2016 20:25 - CONCLUSION: 1. Early changes of osteomyelitis at the distal second and third metatarsals and proximal phalanges of the second and third toes. There is air in surrounding soft tissues and fairly extensive cellulitis of the forefoot. aCin Sheriff MD Aorta w/Runoff CTA 09/24/16 0000 Signed Impressions: Service Date/Time: Saturday, September 24, 2016 21:05 - CONCLUSION: Very minimal inflow disease adductor hiatus on the left. Flow is better on the right than the left probably related to hyperemia. I don't see a source of emboli. Correlation with AVA's is suggested. Primary vessel disease is probably not the source of the nonhealing ulcer of the left foot. Wesley Jones MD FACR Physical Exam HEENT: PERRL; normocephalic; atraumatic; no jaundice. CHEST: CTA CARDIAC: RRR ABDOMEN: Soft, protuberant, mult scars, epigastric TTP, tympanitic; no hepatosplenomegaly; bowel sounds are present in all four quadrants. EXTREMITIES: No clubbing, cyanosis, or edema. Right foot partial amputation, bandaged SKIN: Normal; no rash; no jaundice. NOVELTY DIPPER: No focal deficits; alert and oriented times three. (Elsa Sheth [facility]) Assessment and Plan Plan ASSESSMENT - elevated LFTs - asx. no jaundice. heavy ETOH. US --> 1. Echogenic focus within the common bile duct measuring 12 mm suggestive of choledocholithiasis. Correlation with alkaline phosphatase and bilirubin levels is suggested to rule out biliary obstruction. 2. Hepatosplenomegaly. s/p ERCP w/ sphincterotomy, stent 09-30-16--> ? filling defect distal CBD, no clear stone extruded but duct did not drain - epigastric pain - s/p ERCP, ate meatball sub yesterday and tolerated. today c /o of abd pain that started last night. PLAN - clears after surgery - repeat ERCP 8w - f/u with GI in office 4w - monitor LFTs - supportive care THis pt seen by myself and DR Luo and this note is written on his behalf. (Elsa Sheth) Physician Comments Patient seen and examined Agree with above Continue with current supportive care Monitor labs Advance diet as tolerated post surgery (Pablo Luo MD) Elsa Sheth Oct 02, 2016 11:57 Pablo Luo MD Oct 02, 2016 13:15
[2016-10-02 12:00] VITALS: BP 129/71; PULSE 48; RESP 17; TEMP 96.9; O2SAT 98
[2016-10-02] MEDS ORDERED: Post-op Orders (for Pharmacy) MISC XX ONE (12:00)
--- NOTE | 2016-10-02 12:11 | PD.OP ---
Operative Report Date of Surgery: Oct 02, 2016 Preoperative Diagnosis: (1) Diabetic foot ulcer Right foot Postoperative Diagnosis: (1) Diabetic foot ulcer Right foot Procedure: Split thickness skin graft to right foot from right thigh harvest site Anesthesia: General inhalation Surgeon: Dustin Stout DPM [employer] Specialist(s): JUS Ramey Operation and Findings: Patient is brought to the OR and placed on the operating table in the supine position. Patient was given general inhalation anesthesia. Right foot and leg were then prepped and draped in the usual sterile manner. After the appropriate timeout was performed and consent verified attention was directed to the right foot. Patient had an open guillotine amputation site. The amputation site was curetted of necrotic tissue down to good bleeding base. She was directed back to the right thigh where using a dermatome at 1607 inch thick a 3 inch wide split-thickness skin graft harvest was obtained. Graft was placed on a mesher and a 3-1 mesh was performed to the graft. The graft was then placed over the amputation site of the right foot. Excess was cut and trimmed. The graft was then stapled down into place. The right foot was then dressed with Adaptic and 4 x 4's and a Henry roll and Travis bandage. Attention was directed to the right harvest site of the thigh with 20 cc of 0.5% Marcaine with epi was infiltrated. Adaptic was placed over the harvest site on by an ABDs pad and soft roll and a Henry. Travis bandage was placed. Estimated blood loss was less than 10 cc. Sponge and instrument count were noted to be correct. Patient was transferred from the OR to PACU in apparent satisfactory condition with all vital signs stable. Dustin Stout DPM Oct 02, 2016 12:10
[2016-10-02] MEDS ORDERED: SODIUM CHLORIDE 0.9% FLUSH 10 ML FLUSH IV FLUSH PRN (12:15)
[2016-10-02] MEDS ORDERED: NALOXONE HCL 0.4 MG/ML AMP IV PRN (12:15)
[2016-10-02] MEDS ORDERED: DO NOT ADM ANY ANTICOAGULANT DRUGS PRN (12:30)
[2016-10-02 13:11] VITALS: BP 142/74; PULSE 58; RESP 17; TEMP 95.5; O2SAT 99
[2016-10-02] MEDS ORDERED: ALUMINUM/MAGNESIUM/SIMETH 30 ML CUP PO PRN (13:45)
[2016-10-02] MEDS ORDERED: CALCIUM CARBONATE 500 MG CHEWABLE TAB CHEW PRN (13:45)
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
[2016-10-02] MEDS ORDERED: FAMO20TA2 PO (13:49)
[2016-10-02] MEDS ORDERED: OXYC-392 PO (13:49)
[2016-10-02] MEDS ORDERED: TOBR3.5O EACH EYE (13:49)
[2016-10-02] MEDS ORDERED: TOBRO EACH EYE (13:49)
[2016-10-02] MEDS ORDERED: LISI10TA3 PO (13:49)
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
[2016-10-02] MEDS ORDERED: BENZOCAINE-MENTHOL (SUGAR FREE) 15 MG-3.6 MG LOZENGE BUCCAL PRN (14:30)
[2016-10-02 16:00] VITALS: BP 157/74; PULSE 50; RESP 17; TEMP 94.8; O2SAT 99
[2016-10-02] MEDS ORDERED: fentaNYL CITRATE 250 MCG/5 ML AMP ONE (18:08)
[2016-10-02] MEDS ORDERED: MIDAZOLAM HCL 2 MG/2 ML VIAL ONE (18:08)
[2016-10-02 20:00] VITALS: BP_SYST 128; BP_SYST 132; BP_DIAS 66; BP_DIAS 85; PULSE 68; PULSE 86; RESP 18; RESP 20; TEMP 100.9; TEMP 95.7; O2SAT 95; O2SAT 99
[2016-10-02] MEDS: FAMOTIDINE 20 MG TAB PO SCH (20:56)
[2016-10-03] VITALS: BP 165/88; PULSE 55; RESP 19; TEMP 97; O2SAT 99
[2016-10-03] MEDS: HYDROmorphone HCL PF 1 MG/ML VIAL IV PRN ×6 (02:19→23:03)
[2016-10-03] MEDS: HEPARIN SODIUM - SQ 10,000 UNITS/ML VIAL SQ SCH ×3 (02:45→17:21)
[2016-10-03 04:00] VITALS: BP 128/87; PULSE 78; RESP 19; TEMP 96.7; O2SAT 98
[2016-10-03 04:30] LABS: INDIRECT BILIRUBIN 0.5 MG/DL (0.0-0.8); TOTAL BILIRUBIN ADULT 0.7 MG/DL (0.2-1.0)
[2016-10-03 05:15] LABS: HEMATOCRIT 35.1 % (39.0-51.0); MEAN CORPUSCULAR HEMOGLOBIN 29.9 PG (27.0-34.0); MEAN CORPUSCULAR HGB CONC 33.2 % (32.0-36.0); PLATELET COUNT 103 TH/MM3 (150-450); RED CELL DISTRIBUTION WIDTH 14.7 % (11.6-17.2); REVIEW FLAG FINAL
[2016-10-03] MEDS: PIPERACIL-TAZO 4.5 GM PREMIX 100 ML IV SCH ×2 (05:20→12:04)
[2016-10-03] MEDS: INSULIN ASPART SUPPLEMENTAL SCALE SQ SCH ×4 (05:25→21:05)
--- NOTE | 2016-10-03 07:23 | PD.POD ---
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 He is one day status post split- thickness skin graft application to the open amputation site. Patient without complaints of pain or discomfort. Past Med/Surg/Social History Past Medical History PFSH Reviewed: Yes Endocrine: REPORTS HX OF: Diabetes mellitus Respiratory: REPORTS HX OF: Other respiratory history (traumatic pneumothorax years ago. No sequela) Cardiovascular: REPORTS HX OF: Hypertension Neurologic: REPORTS HX OF: Peripheral neuropathy (right lower extremity secondary to trauma) Psychiatric: REPORTS HX OF: Anxiety, Depression Past Surgical History Gastrointestinal: DENIES HX OF: Colectomy, total Musculoskeletal: REPORTS HX OF: Other musculoskeletal srg (amputation of right first ray, previous history of fifth metatarsal head re) Breast: DENIES HX OF: Mastectomy, bilateral, Mastectomy, left, Mastectomy, right Social History Smoking Status: Current Every Day Smoker Review of Systems Notes Any changes since yesterday was application of the split-thickness skin graft Objective Vital Signs Vital Signs Date Time Temp Pulse Resp B/P Pulse Ox O2 Delivery O2 Flow Rate FiO2 10/03/16 04:00 96.7 78 19 128/87 98 10/03/16 00:00 97.0 55 19 165/88 99 10/02/16 20:00 100.9 86 20 132/66 95 10/02/16 20:00 95.7 68 18 128/85 99 10/02/16 16:00 94.8 50 17 157/74 99 10/02/16 13:11 95.5 58 17 142/74 99 10/02/16 12:45 97.7 63 12 143/79 98 Nasal Cannula 2 10/02/16 12:30 63 12 144/75 98 Nasal Cannula 2 10/02/16 12:15 67 12 147/73 99 Nasal Cannula 4 10/02/16 12:10 97.7 78 12 147/71 99 Nasal Cannula 4 10/02/16 12:00 96.9 48 17 129/71 98 10/02/16 08:00 95.9 49 17 139/74 99 Coded Allergies: No Known Allergies (Verified , 09/24/16) Medications and IVs Current Medications Piperacillin Sod/ Tazobactam Sod 100 ml @ 200 mls/hr ONCE STAT IV Last administered on 09/24/16 16:16; Start 09/24/16 at 15:53; Stop 09/24/16 at 16:22 ; Status DC Vancomycin HCl/ Sodium Chloride (Vancomycin Inj/ NS 250 ml Inj) 250 ml @ 250 mls/hr ONCE STAT IV Last administered on 09/24/16 17:05; Start 09/24/16 at 15 :53; Stop 09/24/16 at 16:52; Status DC Morphine Sulfate (Morphine Inj) 4 mg ONCE ONCE IV PUSH Last administered on 17:11; Start 09/24/16 at 17:15; Stop 09/24/16 at 17:16; Status DC Ondansetron HCl (Zofran Inj) 4 mg ONCE ONCE IV PUSH Last administered on 17:11; Start 09/24/16 at 17:15; Stop 09/24/16 at 17:16; Status DC Sodium Chloride (NS Flush) 2 ml UNSCH PRN IV FLUSH FLUSH AFTER USING IV ACCESS ; Start 09/24/16 at 18:45; Stop 09/26/16 at 17:36; Status DC Sodium Chloride (NS Flush) 2 ml BID IV FLUSH Last administered on 09/26/16 09: 08; Start 09/24/16 at 21:00; Stop 09/26/16 at 17:36; Status DC Acetaminophen (Tylenol) 650 mg Q4H PRN PO TEMP > 100.4; Start 09/24/16 at 18:45 Ondansetron HCl (Zofran Inj) 4 mg Q6H PRN IVP NAUSEA OR VOMITING Last administered on 09/27/16 07:57; Start 09/24/16 at 18:45 Heparin Sodium (Porcine) (Heparin Inj) 5,000 units Q8H SQ Last administered on 10/02/16 17:04; Start 09/24/16 at 18:45 Senna/Docusate Sodium (Chey-Colace) 1 tab BID PO Last administered on 20:56; Start 09/24/16 at 21:00 Magnesium Hydroxide (Milk Of Magnesia Liq) 30 ml Q12H PRN PO MILD - MODERATE CONSTIPATION Last administered on 09/27/16 22:53; Start 09/24/16 at 18:45 Sennosides (Senokot) 17.2 mg Q12H PRN PO MODERATE - SEVERE CONSTIPATION; Start 09/24/16 at 18:45 Bisacodyl (Dulcolax Supp) 10 mg DAILY PRN RECTAL SEVERE CONSITIPATION; Start at 18:45 Lactulose 30 ml 30 ml DAILY PRN PO SEVERE CONSITIPATION Last administered on 14:02; Start 09/24/16 at 18:45 Piperacillin Sod/ Tazobactam Sod 100 ml @ 200 mls/hr Q8HR IV Last administered on 10/03/16 05:20; Start 09/24/16 at 22:00 Pharmacy Profile Note 0 ml @ 0 mls/hr UNSCH OTHER ; Start 09/24/16 at 18:45; Stop 09/30/16 at 15:31; Status DC Vancomycin HCl/ Sodium Chloride (Vancomycin Inj/ NS 250 ml Inj) 250 ml @ 250 mls/hr Q8H IV Last administered on 09/27/16 04:23; Start 09/24/16 at 21:00; Stop 09/27/16 at 08:47; Status DC Dextrose (D50w (Vial) Inj) 50 ml UNSCH PRN IV HYPOGLYCEMIA-SEE COMMENTS; Start 09/24/16 at 18:45 Glucagon (Glucagon Inj) 1 mg UNSCH PRN OTHER HYPOGLYCEMIA-SEE COMMENTS; Start 09/24/16 at 18:45 Insulin Aspart (NovoLOG SUPPLEMENTAL SCALE) 1 ACHS SLIDING SCALE SQ Last administered on 09/29/16 20:30; Start 09/24/16 at 21:00; Stop 09/29/16 at 21:50 ; Status DC Lisinopril (Prinivil) 20 mg DAILY PO Last administered on 09/25/16 08:02; Start 09/24/16 at 19:00; Stop 09/26/16 at 16:15; Status DC Oxycodone/ Acetaminophen (Percocet 5-325 Mg) 1 tab Q4H PRN PO PAIN SCALE 1 TO 4 Last administered on 09/25/16 12:51; Start 09/24/16 at 19:00; Stop 09/26/16 at 17:41; Status DC Oxycodone/ Acetaminophen (Percocet 5-325 Mg) 2 tab Q4H PRN PO PAIN SCALE 5 TO 10 Last administered on 09/26/16 15:31; Start 09/24/16 at 19:00; Stop 09/26/16 at 17:41; Status DC Morphine Sulfate (Morphine Inj) 4 mg Q3H PRN IV PUSH BREAKTHROUGH PAIN Last administered on 09/26/16 13:28; Start 09/24/16 at 19:00; Stop 09/26/16 at 17:40 ; Status DC Flumazenil (Romazicon Inj) 0.2 mg Q1M PRN IV PUSH SEE LABEL COMMENTS; Start 01/31 at 19:00 Lorazepam (Ativan) 1 mg Q4H PRN PO CIWA 8 - 10; Start 09/24/16 at 19:00 Lorazepam (Ativan Inj) 1 mg Q4H PRN IV PUSH CIWA 8 - 10; Start 09/24/16 at 19: 00 Lorazepam (Ativan) 2 mg Q2H PRN PO CIWA 11-14; Start 09/24/16 at 19:00 Lorazepam (Ativan Inj) 2 mg Q2H PRN IV PUSH CIWA 11-14; Start 09/24/16 at 19:00 Lorazepam (Ativan Inj) 2 mg Q1H PRN IV PUSH CIWA 15-20; Start 09/24/16 at 19:00 Lorazepam (Ativan Inj) 2 mg Q15M PRN IV PUSH CIWA > 20; Start 09/24/16 at 19:00 Miscellaneous Information SPECIFIC LAB TO BE DRAWN: VANCOMYCIN TROUGH DATE TO... ONCE ONCE .XX Last administered on 09/26/16 04:45; Start 09/26/16 at 04 :45; Stop 09/26/16 at 04:46; Status DC Gadodiamide (Omniscan Pf Inj) 20 ml STK-MED ONCE IV Last administered on 20:34; Start 09/24/16 at 20:34; Stop 09/24/16 at 20:35; Status DC Iohexol (Omnipaque 350 Inj) 100 ml STK-MED ONCE IV Last administered on 21:23; Start 09/24/16 at 21:23; Stop 09/24/16 at 21:24; Status DC Temazepam 7.5 mg 7.5 mg ONCE ONCE PO Last administered on 09/26/16 01:19; Start 09/26/16 at 00:30; Stop 09/26/16 at 00:31; Status DC Lactated Ringer's (Lr 1000 ml Inj) 1,000 ml @ 30 mls/hr Q24H PRN IV SEE LABEL COMMENTS; Start 09/26/16 at 04:45; Stop 09/29/16 at 04:44; Status DC Insulin Human Regular (NovoLIN R INJ) See Protocol Table ... SPINNING DOFFER PRN SQ SEE PROTOCOL TABLE; Start 09/26/16 at 04:45; Stop 09/29/16 at 04:44; Status DC Miscellaneous Information SPECIFIC LAB TO BE MECHE... ONCE ONCE .XX Last administered on 09/27/16 04:23; Start 09/27/16 at 04:45; Stop 09/27/16 at 04:46 ; Status DC Bupivacaine HCl (Marcaine Pf 0.5% Inj) 30 ml STK-MED ONCE .ROUTE Last administered on 09/26/16 16:45; Start 09/26/16 at 15:59; Stop 09/26/16 at 16:00 ; Status DC Lidocaine HCl (Xylocaine 1% Inj (50 ml)) 50 ml STK-MED ONCE .ROUTE ; Start 09/26 at 15:59; Stop 09/26/16 at 16:00; Status DC Midazolam HCl (Versed Inj) 2 mg STK-MED ONCE .ROUTE ; Start 09/26/16 at 16:07; Stop 09/26/16 at 16:08; Status DC Fentanyl Citrate (fentaNYL INJ) 250 mcg STK-MED ONCE .ROUTE ; Start 09/26/16 at 16:07; Stop 09/26/16 at 16:08; Status DC Famotidine (Pepcid Inj) 20 mg STK-MED ONCE .ROUTE ; Start 09/26/16 at 16:08; Stop 09/26/16 at 16:09; Status DC Lisinopril (Prinivil) 10 mg DAILY PO Last administered on 10/02/16 10:05; Start 09/27/16 at 09:00 Sodium Chloride (NS Flush) 2 ml UNSCH PRN IV FLUSH FLUSH AFTER USING IV ACCESS ; Start 09/26/16 at 17:15; Stop 10/02/16 at 12:13; Status DC Sodium Chloride (NS Flush) 2 ml BID IV FLUSH Last administered on 10/02/16 07: 38; Start 09/26/16 at 21:00; Stop 10/02/16 at 13:52; Status DC Miscellaneous Information (Post-op Orders (for Pharmacy)) STAT ONCE XX ; Start 09/26/16 at 17:15; Stop 09/26/16 at 17:38; Status DC Oxycodone HCl (Roxicodone) 10 mg Q4H PRN PO PAIN SCALE 6 TO 10 Last administered on 10/02/16 05:38; Start 09/26/16 at 17:15; Stop 10/02/16 at 12:13 ; Status DC Acetaminophen (Ofirmev Inj) 1,000 mg Q6H IV Last administered on 09/27/16 11: 47; Start 09/26/16 at 18:00; Stop 09/27/16 at 12:01; Status DC Hydromorphone HCl (Dilaudid Pf Inj) 1 mg Q3H PRN IV BREAKTHROUGH PAIN Last administered on 10/02/16 06:47; Start 09/26/16 at 17:15; Stop 10/02/16 at 12:13 ; Status DC Oxycodone HCl (Roxicodone) 5 mg Q4H PRN PO PAIN SCALE 3 TO 5; Start 09/26/16 at 17:15; Stop 10/02/16 at 12:13; Status DC Naloxone HCl (Narcan Inj) 0.4 mg UNSCH PRN IV SEE LABEL COMMENTS; Start at 17:15 Miscellaneous Information ALL NURSING DEPARTME... UNSCH PRN .XX SEE LABEL COMMENTS; Start 09/26/16 at 17:16; Stop 09/27/16 at 17:15; Status DC Morphine Sulfate (*morphine INJ PERIprocedure ONLY) 8 mg STK-MED ONCE .ROUTE Last administered on 09/26/16 17:57; Start 09/26/16 at 17:55; Stop 09/26/16 at 17:56; Status DC Morphine Sulfate 8 mg 8 mg STK-MED ONCE .ROUTE Last administered on 09/26/16 18:14; Start 09/26/16 at 18:14; Stop 09/26/16 at 18:15; Status DC Vancomycin HCl/ Sodium Chloride (Vancomycin Inj/ NS 500 ml Inj) 515 ml @ 250 mls/hr Q12H IV Last administered on 09/29/16 12:00; Start 09/27/16 at 12:00; Stop 09/29/16 at 15:37; Status DC Miscellaneous Information SPECIFIC LAB TO BE DRAWN:VANCOMYCIN TROUGH DATE TO... ONCE ONCE .XX Last administered on 09/29/16 11:45; Start 09/29/16 at 11:45; Stop 09/29/16 at 11:46; Status DC Artificial Tears (Tears Naturale Opth Soln) 1 drop Q4H PRN EACH EYE DRY EYE Last administered on 09/29/16 20:17; Start 09/28/16 at 14:30 Tobramycin/ Dexamethasone (Tobradex Opth Oint) 1 applic QID EACH EYE ; Start at 18:00 Tobramycin/ Dexamethasone 1 drop 1 drop QID EACH EYE Last administered on 21:03; Start 09/29/16 at 18:00 Vancomycin HCl/ Sodium Chloride (Vancomycin Inj/ NS 500 ml Inj) 520 ml @ 250 mls/hr Q12H IV Last administered on 09/30/16 01:26; Start 09/30/16 at 00:00; Stop 09/30/16 at 15:31; Status DC Miscellaneous Information SPECIFIC LAB TO BE DRAWN:VANCOMYCIN TROUGH DATE TO... ONCE ONCE .XX ; Start 10/01/16 at 11:45; Stop 10/01/16 at 11:45; Status DC Insulin Aspart (NovoLOG SUPPLEMENTAL SCALE) 1 ACHS SLIDING SCALE SQ Last administered on 10/02/16 21:35; Start 09/30/16 at 07:00 Fentanyl Citrate (fentaNYL INJ) 100 mcg STK-MED ONCE .ROUTE ; Start 09/30/16 at 12:56; Stop 09/30/16 at 12:57; Status DC Miscellaneous Information ALL NURSING DEPARTME... UNSCH PRN .XX SEE LABEL COMMENTS; Start 09/30/16 at 14:00; Stop 10/01/16 at 13:59; Status DC Propofol (Diprivan 200 Mg/20 ml Inj) 500 mg STK-MED ONCE IV ; Start 09/30/16 at 13:15; Stop 09/30/16 at 18:56; Status DC Neostigmine Methylsulfate (Prostigmin Inj) 3 mg STK-MED ONCE IV ; Start at 13:15; Stop 09/30/16 at 18:56; Status DC Ondansetron HCl (Zofran Inj) 4 mg STK-MED ONCE IV PUSH ; Start 09/30/16 at 13:15 ; Stop 09/30/16 at 18:56; Status DC Sodium Chloride (NS 1000 ml Inj) 1,000 ml STK-MED ONCE IV ; Start 09/30/16 at 13 :15; Stop 09/30/16 at 19:00; Status DC Iohexol 100 ml 100 ml STK-MED ONCE OTHER Last administered on 09/30/16t 13:15; Start 09/30/16 at 13:15; Stop 09/30/16 at 19:13; Status DC Lactated Ringer's (Lr 1000 ml Inj) 1,000 ml @ 30 mls/hr Q24H PRN IV SEE LABEL COMMENTS; Start 10/02/16 at 07:00; Stop 10/02/16 at 13:52; Status DC Povidone Iodine (Betadine 5% Antisepsis Kit) 1 applic SPINNING DOFFER PRN EACH NARE SEE LABEL COMMENTS; Start 10/02/16 at 07:00; Stop 10/02/16 at 13:52; Status DC Chlorhexidine Gluconate (Chlorhexidine 2% Cloth) 3 pack SPINNING DOFFER PRN TOPICAL SEE LABEL COMMENTS; Start 10/02/16 at 07:00; Stop 10/02/16 at 13:52; Status DC Metoclopramide HCl (Reglan Inj) 10 mg STK-MED ONCE .ROUTE ; Start 10/02/16 at 11 :02; Stop 10/02/16 at 11:03; Status DC Acetaminophen (Ofirmev Inj) 1,000 mg STK-MED ONCE IV ; Start 10/02/16 at 11:06; Stop 10/02/16 at 11:07; Status DC Bupivacaine HCl/ Epinephrine Bitart (Sensorcaine-Epinephrine Pf 0.5% Inj) 30 ml STK-MED ONCE .ROUTE Last administered on 10/02/16t 11:38; Start 10/02/16 at 11: 25; Stop 10/02/16 at 11:26; Status DC Mineral Oil (Muri-Lube Oil) 10 ml STK-MED ONCE .ROUTE Last administered on 10/02 11:38; Start 10/02/16 at 11:25; Stop 10/02/16 at 11:26; Status DC Sodium Chloride (NS Flush) 2 ml UNSCH PRN IV FLUSH FLUSH AFTER USING IV ACCESS ; Start 10/02/16 at 12:15 Sodium Chloride (NS Flush) 2 ml BID IV FLUSH Last administered on 10/02/16 21: 03; Start 10/02/16 at 21:00 Miscellaneous Information (Post-op Orders (for Pharmacy)) STAT ONCE XX ; Start 10/02/16 at 12:00; Stop 10/02/16 at 12:17; Status DC Oxycodone HCl (Roxicodone) 10 mg Q4H PRN PO PAIN SCALE 6 TO 10 Last administered on 10/03/16 05:20; Start 10/02/16 at 12:15 Hydromorphone HCl (Dilaudid Pf Inj) 1 mg Q3H PRN IV BREAKTHROUGH PAIN Last administered on 10/03/16 06:18; Start 10/02/16 at 12:15 Oxycodone HCl (Roxicodone) 5 mg Q4H PRN PO PAIN SCALE 3 TO 5; Start 10/02/16 at 12:15 Naloxone HCl (Narcan Inj) 0.4 mg UNSCH PRN IV SEE LABEL COMMENTS; Start at 12:15 Miscellaneous Information ALL NURSING DEPARTME... UNSCH PRN .XX SEE LABEL COMMENTS; Start 10/02/16 at 12:30; Stop 10/03/16 at 12:29 Al Hydrox/Mg Hydrox/Simethicone (Mag-Al Plus Susp Liq) 30 ml Q6H PRN PO DYSPEPSIA OR HEARTBURN; Start 10/02/16 at 13:45 Calcium Carbonate (Tums Chew) 500 mg Q6H PRN CHEW DYSPEPSIA OR HEARTBURN; Start 10/02/16 at 13:45 Famotidine (Pepcid) 20 mg BID PO Last administered on 10/02/16 20:56; Start at 21:00 Benzocaine/Menthol (Cepacol Extra Jina (Sugar Free)) 1 lozenge Q2H PRN BUCCAL sore throat; Start 10/02/16 at 14:30 Midazolam HCl (Versed Inj) 2 mg STK-MED ONCE .ROUTE ; Start 10/02/16 at 18:08; Stop 10/02/16 at 18:09; Status DC Fentanyl Citrate (fentaNYL INJ) 250 mcg STK-MED ONCE .ROUTE ; Start 10/02/16 at 18:08; Stop 10/02/16 at 18:09; Status DC Other Results Laboratory Tests Test 10/03/16 04:43 White Blood Count 5.0 TH/MM3 Red Blood Count 3.90 MIL/MM3 Hemoglobin 11.7 GM/DL Hematocrit 35.1 % Mean Corpuscular Volume 90.0 FL Mean Corpuscular Hemoglobin 29.9 PG Mean Corpuscular Hemoglobin 33.2 % Concent Red Cell Distribution Width 14.7 % Platelet Count 103 TH/MM3 Mean Platelet Volume 9.4 FL Laboratory Tests Test 10/03/16 03:03 Total Bilirubin 0.7 MG/DL Direct Bilirubin 0.2 MG/DL Indirect Bilirubin 0.5 MG/DL Aspartate Amino Transf 81 U/L (AST/SGOT) Alanine Aminotransferase 162 U/L (ALT/SGPT) Alkaline Phosphatase 137 U/L Total Protein 7.5 GM/DL Albumin 3.3 GM/DL Lipase 120 U/L Exam-Podiatry Constitutional General appearance: comfortable Nutritional status: normal Orientation: alert and oriented x3 Dermatological Exam Skin Temp - Right: Within Normal Limits Skin Texture - Right: Within Normal Limits Skin Elasticity - Right: Within Normal Limits Skin Tugor - Right: Within Normal Limits Hair Growth - Right: Within Normal Limits Pigmentation - Right: Within Normal Limits Skin Temp - Left: Within Normal Limits Skin Texture - Left: Within Normal Limits Skin Elasticity - Left: Within Normal Limits Skin Tugor - Left: Within Normal Limits Hair Growth - Left: Within Normal Limits Pigmentation - Left: Within Normal Limits Other: Scars, Surgery,Injury [place] site of the right thigh and application site of the right foot dressings are dry and intact. Vascular/Lymphatic Exam R Dorsails Pedis: Palpable L Dorsails Pedis: Palpable R Posterior Tibial: Palpable L Posterior Tibial: Palpable Neurologic Exam Present on right: Tingling, Paraesthesia Present on left: Tingling, Paraesthesia Musculoskeletal Exam Details Transmetatarsal amputation right foot Muscle Strength Dorsiflexion (Right): Normal Plantarflexion (Right): Normal Inversion (Right): Normal Eversion (Right): Normal Digital (Right): Normal Dorsiflexion (Left): Normal Plantarflexion (Left): Normal Inversion (Left): Normal Eversion (Left): Normal Digital (Left): Normal Foot Range of Motion Dorsiflexion (Right): Normal Plantarflexion (Right): Normal Inversion (Right): Normal Eversion (Right): Normal Digital (Right): Normal Dorsiflexion (Left): Normal Plantarflexion (Left): Normal Inversion (Left): Normal Eversion (Left): Normal Digital (Left): Normal Assessment & Plan Diagnosis: (1) Diabetic foot ulcer Status: Acute (2) Osteomyelitis of right foot Status: Resolved A/P PLAN: I will his dressings tomorrow. If harvest and placement site leg. He can be discharged home. May ambulate nonweightbearing right foot. Continue to follow. Problem Qualifiers (1) Diabetic foot ulcer: Qualified Code: E11.621 - Diabetic ulcer of other part of right foot associated with type 2 diabetes mellitus, unspecified ulcer stage (2) Osteomyelitis of right foot: Qualified Code: M86.171 - Other acute osteomyelitis of right foot Dustin Stout DPM Oct 03, 2016 07:23
[2016-10-03 08:00] VITALS: BP 131/98; PULSE 54; RESP 18; TEMP 96.2; O2SAT 97
[2016-10-03] MEDS: TOBRAMYCIN/DEXAMETHASONE OPTH OINT 3.5 GM TUBE EACH EYE SCH ×4 (09:00→21:00)
[2016-10-03] MEDS: LISINOPRIL 10 MG TAB PO SCH (09:17)
[2016-10-03] MEDS: DOCUSATE SODIUM 50 MG/SENNA 8.6 MG TAB PO SCH ×2 (09:17→21:01)
[2016-10-03] MEDS: FAMOTIDINE 20 MG TAB PO SCH ×2 (09:17→21:01)
[2016-10-03] MEDS: SODIUM CHLORIDE 0.9% FLUSH 10 ML FLUSH IV FLUSH SCH ×2 (09:18→21:00)
[2016-10-03] MEDS: TOBRAMYCIN 0.3%/DEXAMETHASONE 0.1% OPHT SUSP 5 ML BTL EACH EYE SCH ×4 (09:19→21:00)
[2016-10-03] MEDS: ARTIFICIAL TEARS OPTH SOLN 15 ML BTL EACH EYE PRN ×3 (09:19→21:02)
--- NOTE | 2016-10-03 11:21 | HHI.GIFU ---
Subjective Remarks Resting in bed. States he didn't have any abdominal pain until he had the ERCP. He has since had a mild epigastric discomfort/hunger like discomfort. No nausea. Tolerating diet. Objective Vitals I&O Vital Signs Date Time Temp Pulse Resp B/P Pulse Ox O2 Delivery O2 Flow Rate FiO2 10/03/16 08:00 96.2 54 18 131/98 97 10/03/16 04:00 96.7 78 19 128/87 98 10/03/16 00:00 97.0 55 19 165/88 99 10/02/16 20:00 100.9 86 20 132/66 95 10/02/16 20:00 95.7 68 18 128/85 99 10/02/16 16:00 94.8 50 17 157/74 99 10/02/16 13:11 95.5 58 17 142/74 99 10/02/16 12:45 97.7 63 12 143/79 98 Nasal Cannula 2 10/02/16 12:30 63 12 144/75 98 Nasal Cannula 2 10/02/16 12:15 67 12 147/73 99 Nasal Cannula 4 10/02/16 12:10 97.7 78 12 147/71 99 Nasal Cannula 4 10/02/16 12:00 96.9 48 17 129/71 98 I/O 10/02/16 10/02/16 10/02/16 10/03/16 10/03/16 10/03/16 07:00 15:00 23:00 07:00 15:00 23:00 Intake Total 200 ml 800 ml 460 ml 340 ml Output Total 350 ml 15 ml 300 ml 700 ml Balance -150 ml 785 ml 160 ml -360 ml Intake Oral 0 ml 0 ml 360 ml 240 ml IV Total 200 ml 0 ml 100 ml 100 ml Other 800 ml Output Urine Total 350 ml 300 ml 700 ml Estimated Blood Loss 15 ml # Voids 1 2 # Bowel Movements 0 0 0 Laboratory Laboratory Tests Test 10/03/16 10/03/16 03:03 04:43 Total Bilirubin 0.7 Direct Bilirubin 0.2 Indirect Bilirubin 0.5 Aspartate Amino Transf 81 (AST/SGOT) Alanine Aminotransferase 162 (ALT/SGPT) Alkaline Phosphatase 137 Total Protein 7.5 Albumin 3.3 Lipase 120 White Blood Count 5.0 Red Blood Count 3.90 Hemoglobin 11.7 Hematocrit 35.1 Mean Corpuscular Volume 90.0 Mean Corpuscular Hemoglobin 29.9 Mean Corpuscular Hemoglobin 33.2 Concent Red Cell Distribution Width 14.7 Platelet Count 103 Mean Platelet Volume 9.4 Date/Time Procedure Status Source Growth 09/29/16 10:49 Gram Stain - Final Complete Wound Foot 09/29/16 10:49 Wound Culture - Final Complete Wound Foot NO GROWTH IN 72 HRS.--AEROBICALLY OR ... 09/29/16 09:38 Cancelled Wound Foot Imaging Last Impressions GI Procedure 09/30/16 0000 Signed Impressions: Service Date/Time: Friday, September 30, 2016 13:20 - CONCLUSION: ERCP as above. Meliton Jones MD Liver Ultrasound 09/29/16 0000 Signed Impressions: Service Date/Time: September 08:27 - CONCLUSION: 1. Echogenic focus within the common bile duct measuring 12 mm suggestive of choledocholithiasis. Correlation with alkaline phosphatase and bilirubin levels is suggested to rule out biliary obstruction. 2. Hepatosplenomegaly. Andrea Mcmahon MD Foot X-Ray 09/26/16 0000 Signed Impressions: Service Date/Time: Monday, September 26, 2016 17:39 - CONCLUSION: Status post amputation at the level of the proximal metatarsals. Andrea Mcmahon MD Chest X-Ray 09/26/16 0000 Signed Impressions: Service Date/Time: Monday, September 26, 2016 11:17 - CONCLUSION: Negative chest for acute disease. Wesley Jones MD FACR Foot MRI 09/24/16 0000 Signed Impressions: Service Date/Time: Saturday, September 24, 2016 20:25 - CONCLUSION: 1. Early changes of osteomyelitis at the distal second and third metatarsals and proximal phalanges of the second and third toes. There is air in surrounding soft tissues and fairly extensive cellulitis of the forefoot. Cain Sheriff MD Aorta w/Runoff CTA 09/24/16 0000 Signed Impressions: Service Date/Time: Saturday, September 24, 2016 21:05 - CONCLUSION: Very minimal inflow disease adductor hiatus on the left. Flow is better on the right than the left probably related to hyperemia. I don't see a source of emboli. Correlation with AVA's is suggested. Primary vessel disease is probably not the source of the nonhealing ulcer of the left foot. Wesley Jones MD FACR Physical Exam HEENT: Normocephalic; atraumatic; no jaundice. CHEST: CTA CARDIAC: RRR ABDOMEN: Soft, mild epigastric tenderness, no hepatosplenomegaly; bowel sounds are present in all four quadrants. EXTREMITIES: No clubbing, cyanosis, or edema. Right foot partial amputation, bandaged. Right thigh drsg d/i SKIN: Normal; no rash; no jaundice. LABOR/EXCAVATOR: No focal deficits; alert and oriented times three. Assessment and Plan Plan ASSESSMENT - Elevated LFTs with possible biliary obstruction. Liver Ultrasound (09/29/16)-- ---> 1. Echogenic focus within the common bile duct measuring 12 mm suggestive of choledocholithiasis. Correlation with alkaline phosphatase and bilirubin levels is suggested to rule out biliary obstruction. 2. Hepatosplenomegaly. S/P ERCP with sphincterotomy, stent placement (09/30/16)---> Questionable filling defect at the distal cbd, multiple images obtained, 7 mm sphincterotomy and balloon sweeps x 2 11.5 mm balloon. No clear stones extruded but duct did not drain. 8.5 x 9cm stent placed. Good drainage seen at the end of the procedure. LFTs are now trending down. He has a very mild epigastric discomfort since the procedure. No n/v. Tolerating diet. T. Bili 0.7, AST 81, ALT 162, Alk Phosph 137. - Epigastric pain, post procedure. States very mild, tenderness/hunger discomfort since procedure. LFTs improving. Lipase normal. - Right diabetic foot ulcer/cellulitis. S/P transmetatarsal amputation right. Podiatry following. Zosyn. - HTN, DM per primary PLAN - HARRIET - PPI - Monitor labs - Rpt ERCP in 8 weeks with stent exchange/removal - FU FINESSE in 2 weeks - Supportive care - Further recommendations to follow based on results of above - Pt seen and examined by Dr. Urbina and myself and this note is written on his behalf Jill Mallory Oct 03, 2016 11:21
[2016-10-03 12:00] VITALS: BP 119/70; PULSE 55; RESP 18; TEMP 96.3; O2SAT 96
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
[2016-10-03 16:00] VITALS: BP 130/76; PULSE 53; RESP 18; TEMP 95.9; O2SAT 95
[2016-10-03 20:00] VITALS: BP 132/76; PULSE 84; RESP 19; TEMP 96.7; O2SAT 98
[2016-10-04] VITALS: BP 161/85; PULSE 57; RESP 20; TEMP 97.3; O2SAT 97
[2016-10-04] MEDS: HEPARIN SODIUM - SQ 10,000 UNITS/ML VIAL SQ SCH ×2 (02:07→09:34)
[2016-10-04] MEDS: HYDROmorphone HCL PF 1 MG/ML VIAL IV PRN ×3 (03:09→12:49)
[2016-10-04] MEDS: INSULIN ASPART SUPPLEMENTAL SCALE SQ SCH ×3 (05:15→16:27)
[2016-10-04 08:00] VITALS: BP 137/75; PULSE 46; RESP 17; TEMP 95.3; O2SAT 93
[2016-10-04] MEDS: LISINOPRIL 10 MG TAB PO SCH (08:05)
[2016-10-04] MEDS: FAMOTIDINE 20 MG TAB PO SCH (08:05)
[2016-10-04] MEDS: DOCUSATE SODIUM 50 MG/SENNA 8.6 MG TAB PO SCH (08:05)
[2016-10-04] MEDS: TOBRAMYCIN 0.3%/DEXAMETHASONE 0.1% OPHT SUSP 5 ML BTL EACH EYE SCH ×3 (08:06→16:27)
[2016-10-04] MEDS: SODIUM CHLORIDE 0.9% FLUSH 10 ML FLUSH IV FLUSH SCH (08:06)
[2016-10-04] MEDS: TOBRAMYCIN/DEXAMETHASONE OPTH OINT 3.5 GM TUBE EACH EYE SCH ×3 (08:07→16:27)
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
[2016-10-04] MEDS ORDERED: WHEEMIS3 (10:45)
[2016-10-04] MEDS ORDERED: WALKER WHEELS/F1 MIS (10:45)
--- NOTE | 2016-10-04 11:15 | HHI.GIFU ---
Subjective Remarks Resting in bed. Tolerating diet. States "I can eat more than what you guys are feeding me." Has mild intermittent "indigestion" discomfort. No significant abdominal pain. Objective Vitals I&O Vital Signs Date Time Temp Pulse Resp B/P Pulse Ox O2 Delivery O2 Flow Rate FiO2 10/04/16 08:00 95.3 46 17 137/75 93 10/04/16 00:00 97.3 57 20 161/85 97 10/03/16 20:00 96.7 84 19 132/76 98 10/03/16 16:00 95.9 53 18 130/76 95 10/03/16 12:00 96.3 55 18 119/70 96 I/O 10/03/16 10/03/16 10/03/16 10/04/16 10/04/16 10/04/16 07:00 15:00 23:00 07:00 15:00 23:00 Intake Total 340 ml 329 ml 240 ml 240 ml Output Total 700 ml 550 ml Balance -360 ml -221 ml 240 ml 240 ml Intake Oral 240 ml 240 ml 240 ml 240 ml IV Total 100 ml 89 ml Output Urine Total 700 ml 550 ml # Voids 2 2 # Bowel Movements 0 0 0 0 Imaging Last Impressions GI Procedure 09/30/16 0000 Signed Impressions: Service Date/Time: Friday, September 30, 2016 13:20 - CONCLUSION: ERCP as above. Meliton Jones MD Liver Ultrasound 09/29/16 0000 Signed Impressions: Service Date/Time: September 08:27 - CONCLUSION: 1. Echogenic focus within the common bile duct measuring 12 mm suggestive of choledocholithiasis. Correlation with alkaline phosphatase and bilirubin levels is suggested to rule out biliary obstruction. 2. Hepatosplenomegaly. Andrea Mcmahon MD Foot X-Ray 09/26/16 0000 Signed Impressions: Service Date/Time: Monday, September 26, 2016 17:39 - CONCLUSION: Status post amputation at the level of the proximal metatarsals. Andrea Mcmahon MD Chest X-Ray 09/26/16 0000 Signed Impressions: Service Date/Time: Monday, September 26, 2016 11:17 - CONCLUSION: Negative chest for acute disease. Weslye Jones MD FACR Foot MRI 09/24/16 0000 Signed Impressions: Service Date/Time: Saturday, September 24, 2016 20:25 - CONCLUSION: 1. Early changes of osteomyelitis at the distal second and third metatarsals and proximal phalanges of the second and third toes. There is air in surrounding soft tissues and fairly extensive cellulitis of the forefoot. Cain Sheriff MD Aorta w/Runoff CTA 09/24/16 0000 Signed Impressions: Service Date/Time: Saturday, September 24, 2016 21:05 - CONCLUSION: Very minimal inflow disease adductor hiatus on the left. Flow is better on the right than the left probably related to hyperemia. I don't see a source of emboli. Correlation with AVA's is suggested. Primary vessel disease is probably not the source of the nonhealing ulcer of the left foot. Wesley Jones MD FACR Physical Exam HEENT: Normocephalic; atraumatic; no jaundice. CHEST: CTA CARDIAC: RRR ABDOMEN: Soft, mild epigastric tenderness, no hepatosplenomegaly; bowel sounds are present in all four quadrants. EXTREMITIES: No clubbing, cyanosis, or edema. Right foot partial amputation, bandaged. Right thigh drsg d/i SKIN: Normal; no rash; no jaundice. CLAIMS ANALYST: No focal deficits; alert and oriented times three. Assessment and Plan Plan ASSESSMENT - Elevated LFTs with possible biliary obstruction. Liver Ultrasound (09/29/16)-- ---> 1. Echogenic focus within the common bile duct measuring 12 mm suggestive of choledocholithiasis. Correlation with alkaline phosphatase and bilirubin levels is suggested to rule out biliary obstruction. 2. Hepatosplenomegaly. S/P ERCP with sphincterotomy, stent placement (09/30/16)---> Questionable filling defect at the distal cbd, multiple images obtained, 7 mm sphincterotomy and balloon sweeps x 2 11.5 mm balloon. No clear stones extruded but duct did not drain. 8.5 x 9cm stent placed. Good drainage seen at the end of the procedure. LFTs are now trending down. He has a very mild epigastric discomfort since the procedure. No n/v. Tolerating diet. LFTs improving. - Epigastric pain, post procedure. States very mild, tenderness/hunger discomfort since procedure. LFTs improving. Lipase normal. IMPROVED. - Right diabetic foot ulcer/cellulitis. S/P transmetatarsal amputation right. Podiatry following. - HTN, DM per primary PLAN - Okay to d/c home from GI standpoint - HARRIET - PPI - Rpt ERCP in 8 weeks with stent exchange/removal - FU FINESSE in 2 weeks - GI will sign off - Pt seen and examined by Dr. Urbina and myself and this note is written on his behalf Jill Mallory Oct 04, 2016 11:15
[2016-10-04 12:00] VITALS: BP 132/69; PULSE 50; RESP 18; TEMP 96; O2SAT 96
--- NOTE | 2016-10-04 12:54 | PD.POD ---
Subjective Podiatric Problems Open transmetatarsal amputation right foot Pain scale used: 0-10 numeric scale Pain score: 0 Remarks 51-year-old male diabetic 8 days status post open guillotine amputation at the transmetatarsal level of the right foot. He is 2 days status post split- thickness skin graft application to the open amputation site. Patient without complaints of pain or discomfort. Past Med/Surg/Social History Past Medical History PFS Reviewed: Yes Endocrine: REPORTS HX OF: Diabetes mellitus Respiratory: REPORTS HX OF: Other respiratory history (traumatic pneumothorax years ago. No sequela) Cardiovascular: REPORTS HX OF: Hypertension Neurologic: REPORTS HX OF: Peripheral neuropathy (right lower extremity secondary to trauma) Psychiatric: REPORTS HX OF: Anxiety, Depression Past Surgical History Gastrointestinal: DENIES HX OF: Colectomy, total Musculoskeletal: REPORTS HX OF: Other musculoskeletal srg (amputation of right first ray, previous history of fifth metatarsal head re) Breast: DENIES HX OF: Mastectomy, bilateral, Mastectomy, left, Mastectomy, right Social History Smoking Status: Current Every Day Smoker Review of Systems Notes No changes in his 14 point review of systems exam from the previous visit Objective Vital Signs Vital Signs Date Time Temp Pulse Resp B/P Pulse Ox O2 Delivery O2 Flow Rate FiO2 10/04/16 12:00 96.0 50 18 132/69 96 10/04/16 08:00 95.3 46 17 137/75 93 10/04/16 00:00 97.3 57 20 161/85 97 10/03/16 20:00 96.7 84 19 132/76 98 10/03/16 16:00 95.9 53 18 130/76 95 Coded Allergies: No Known Allergies (Verified , 09/24/16) Medications and IVs Current Medications Piperacillin Sod/ Tazobactam Sod 100 ml @ 200 mls/hr ONCE STAT IV Last administered on 09/24/16 16:16; Start 09/24/16 at 15:53; Stop 09/24/16 at 16:22 ; Status DC Vancomycin HCl/ Sodium Chloride (Vancomycin Inj/ NS 250 ml Inj) 250 ml @ 250 mls/hr ONCE STAT IV Last administered on 09/24/16 17:05; Start 09/24/16 at 15 :53; Stop 09/24/16 at 16:52; Status DC Morphine Sulfate (Morphine Inj) 4 mg ONCE ONCE IV PUSH Last administered on 17:11; Start 09/24/16 at 17:15; Stop 09/24/16 at 17:16; Status DC Ondansetron HCl (Zofran Inj) 4 mg ONCE ONCE IV PUSH Last administered on 17:11; Start 09/24/16 at 17:15; Stop 09/24/16 at 17:16; Status DC Sodium Chloride (NS Flush) 2 ml UNSCH PRN IV FLUSH FLUSH AFTER USING IV ACCESS ; Start 09/24/16 at 18:45; Stop 09/26/16 at 17:36; Status DC Sodium Chloride (NS Flush) 2 ml BID IV FLUSH Last administered on 09/26/16 09: 08; Start 09/24/16 at 21:00; Stop 09/26/16 at 17:36; Status DC Acetaminophen (Tylenol) 650 mg Q4H PRN PO TEMP > 100.4; Start 09/24/16 at 18:45 Ondansetron HCl (Zofran Inj) 4 mg Q6H PRN IVP NAUSEA OR VOMITING Last administered on 09/27/16 07:57; Start 09/24/16 at 18:45 Heparin Sodium (Porcine) (Heparin Inj) 5,000 units Q8H SQ Last administered on 10/04/16 09:34; Start 09/24/16 at 18:45 Senna/Docusate Sodium (Chey-Colace) 1 tab BID PO Last administered on 08:05; Start 09/24/16 at 21:00 Magnesium Hydroxide (Milk Of Magnesia Liq) 30 ml Q12H PRN PO MILD - MODERATE CONSTIPATION Last administered on 09/27/16 22:53; Start 09/24/16 at 18:45 Sennosides (Senokot) 17.2 mg Q12H PRN PO MODERATE - SEVERE CONSTIPATION; Start 09/24/16 at 18:45 Bisacodyl (Dulcolax Supp) 10 mg DAILY PRN RECTAL SEVERE CONSITIPATION; Start at 18:45 Lactulose 30 ml 30 ml DAILY PRN PO SEVERE CONSITIPATION Last administered on 14:02; Start 09/24/16 at 18:45 Piperacillin Sod/ Tazobactam Sod 100 ml @ 200 mls/hr Q8HR IV Last administered on 10/03/16 12:04; Start 09/24/16 at 22:00; Stop 10/03/16 at 12:31 ; Status DC Pharmacy Profile Note 0 ml @ 0 mls/hr UNSCH OTHER ; Start 09/24/16 at 18:45; Stop 09/30/16 at 15:31; Status DC Vancomycin HCl/ Sodium Chloride (Vancomycin Inj/ NS 250 ml Inj) 250 ml @ 250 mls/hr Q8H IV Last administered on 09/27/16 04:23; Start 09/24/16 at 21:00; Stop 09/27/16 at 08:47; Status DC Dextrose (D50w (Vial) Inj) 50 ml UNSCH PRN IV HYPOGLYCEMIA-SEE COMMENTS; Start 09/24/16 at 18:45 Glucagon (Glucagon Inj) 1 mg UNSCH PRN OTHER HYPOGLYCEMIA-SEE COMMENTS; Start 09/24/16 at 18:45 Insulin Aspart (NovoLOG SUPPLEMENTAL SCALE) 1 ACHS SLIDING SCALE SQ Last administered on 09/29/16 20:30; Start 09/24/16 at 21:00; Stop 09/29/16 at 21:50 ; Status DC Lisinopril (Prinivil) 20 mg DAILY PO Last administered on 09/25/16 08:02; Start 09/24/16 at 19:00; Stop 09/26/16 at 16:15; Status DC Oxycodone/ Acetaminophen (Percocet 5-325 Mg) 1 tab Q4H PRN PO PAIN SCALE 1 TO 4 Last administered on 09/25/16 12:51; Start 09/24/16 at 19:00; Stop 09/26/16 at 17:41; Status DC Oxycodone/ Acetaminophen (Percocet 5-325 Mg) 2 tab Q4H PRN PO PAIN SCALE 5 TO 10 Last administered on 09/26/16 15:31; Start 09/24/16 at 19:00; Stop 09/26/16 at 17:41; Status DC Morphine Sulfate (Morphine Inj) 4 mg Q3H PRN IV PUSH BREAKTHROUGH PAIN Last administered on 09/26/16 13:28; Start 09/24/16 at 19:00; Stop 09/26/16 at 17:40 ; Status DC Flumazenil (Romazicon Inj) 0.2 mg Q1M PRN IV PUSH SEE LABEL COMMENTS; Start 01/31 at 19:00 Lorazepam (Ativan) 1 mg Q4H PRN PO CIWA 8 - 10; Start 09/24/16 at 19:00 Lorazepam (Ativan Inj) 1 mg Q4H PRN IV PUSH CIWA 8 - 10; Start 09/24/16 at 19: 00 Lorazepam (Ativan) 2 mg Q2H PRN PO CIWA 11-14; Start 09/24/16 at 19:00 Lorazepam (Ativan Inj) 2 mg Q2H PRN IV PUSH CIWA 11-14; Start 09/24/16 at 19:00 Lorazepam (Ativan Inj) 2 mg Q1H PRN IV PUSH CIWA 15-20; Start 09/24/16 at 19:00 Lorazepam (Ativan Inj) 2 mg Q15M PRN IV PUSH CIWA > 20; Start 09/24/16 at 19:00 Miscellaneous Information SPECIFIC LAB TO BE DRAWN: VANCOMYCIN TROUGH DATE TO... ONCE ONCE .XX Last administered on 09/26/16 04:45; Start 09/26/16 at 04 :45; Stop 09/26/16 at 04:46; Status DC Gadodiamide (Omniscan Pf Inj) 20 ml STK-MED ONCE IV Last administered on 20:34; Start 09/24/16 at 20:34; Stop 09/24/16 at 20:35; Status DC Iohexol (Omnipaque 350 Inj) 100 ml STK-MED ONCE IV Last administered on 21:23; Start 09/24/16 at 21:23; Stop 09/24/16 at 21:24; Status DC Temazepam 7.5 mg 7.5 mg ONCE ONCE PO Last administered on 09/26/16 01:19; Start 09/26/16 at 00:30; Stop 09/26/16 at 00:31; Status DC Lactated Ringer's (Lr 1000 ml Inj) 1,000 ml @ 30 mls/hr Q24H PRN IV SEE LABEL COMMENTS; Start 09/26/16 at 04:45; Stop 09/29/16 at 04:44; Status DC Insulin Human Regular (NovoLIN R INJ) See Protocol Table ... GLUER PRN SQ SEE PROTOCOL TABLE; Start 09/26/16 at 04:45; Stop 09/29/16 at 04:44; Status DC Miscellaneous Information SPECIFIC LAB TO BE MECHE... ONCE ONCE .XX Last administered on 09/27/16 04:23; Start 09/27/16 at 04:45; Stop 09/27/16 at 04:46 ; Status DC Bupivacaine HCl (Marcaine Pf 0.5% Inj) 30 ml STK-MED ONCE .ROUTE Last administered on 09/26/16 16:45; Start 09/26/16 at 15:59; Stop 09/26/16 at 16:00 ; Status DC Lidocaine HCl (Xylocaine 1% Inj (50 ml)) 50 ml STK-MED ONCE .ROUTE ; Start 09/26 at 15:59; Stop 09/26/16 at 16:00; Status DC Midazolam HCl (Versed Inj) 2 mg STK-MED ONCE .ROUTE ; Start 09/26/16 at 16:07; Stop 09/26/16 at 16:08; Status DC Fentanyl Citrate (fentaNYL INJ) 250 mcg STK-MED ONCE .ROUTE ; Start 09/26/16 at 16:07; Stop 09/26/16 at 16:08; Status DC Famotidine (Pepcid Inj) 20 mg STK-MED ONCE .ROUTE ; Start 09/26/16 at 16:08; Stop 09/26/16 at 16:09; Status DC Lisinopril (Prinivil) 10 mg DAILY PO Last administered on 10/04/16 08:05; Start 09/27/16 at 09:00 Sodium Chloride (NS Flush) 2 ml UNSCH PRN IV FLUSH FLUSH AFTER USING IV ACCESS ; Start 09/26/16 at 17:15; Stop 10/02/16 at 12:13; Status DC Sodium Chloride (NS Flush) 2 ml BID IV FLUSH Last administered on 10/02/16 07: 38; Start 09/26/16 at 21:00; Stop 10/02/16 at 13:52; Status DC Miscellaneous Information (Post-op Orders (for Pharmacy)) STAT ONCE XX ; Start 09/26/16 at 17:15; Stop 09/26/16 at 17:38; Status DC Oxycodone HCl (Roxicodone) 10 mg Q4H PRN PO PAIN SCALE 6 TO 10 Last administered on 10/02/16 05:38; Start 09/26/16 at 17:15; Stop 10/02/16 at 12:13 ; Status DC Acetaminophen (Ofirmev Inj) 1,000 mg Q6H IV Last administered on 09/27/16 11: 47; Start 09/26/16 at 18:00; Stop 09/27/16 at 12:01; Status DC Hydromorphone HCl (Dilaudid Pf Inj) 1 mg Q3H PRN IV BREAKTHROUGH PAIN Last administered on 10/02/16 06:47; Start 09/26/16 at 17:15; Stop 10/02/16 at 12:13 ; Status DC Oxycodone HCl (Roxicodone) 5 mg Q4H PRN PO PAIN SCALE 3 TO 5; Start 09/26/16 at 17:15; Stop 10/02/16 at 12:13; Status DC Naloxone HCl (Narcan Inj) 0.4 mg UNSCH PRN IV SEE LABEL COMMENTS; Start at 17:15 Miscellaneous Information ALL NURSING DEPARTME... UNSCH PRN .XX SEE LABEL COMMENTS; Start 09/26/16 at 17:16; Stop 09/27/16 at 17:15; Status DC Morphine Sulfate (*morphine INJ PERIprocedure ONLY) 8 mg STK-MED ONCE .ROUTE Last administered on 09/26/16 17:57; Start 09/26/16 at 17:55; Stop 09/26/16 at 17:56; Status DC Morphine Sulfate 8 mg 8 mg STK-MED ONCE .ROUTE Last administered on 09/26/16 18:14; Start 09/26/16 at 18:14; Stop 09/26/16 at 18:15; Status DC Vancomycin HCl/ Sodium Chloride (Vancomycin Inj/ NS 500 ml Inj) 515 ml @ 250 mls/hr Q12H IV Last administered on 09/29/16 12:00; Start 09/27/16 at 12:00; Stop 09/29/16 at 15:37; Status DC Miscellaneous Information SPECIFIC LAB TO BE DRAWN:VANCOMYCIN TROUGH DATE TO... ONCE ONCE .XX Last administered on 09/29/16 11:45; Start 09/29/16 at 11:45; Stop 09/29/16 at 11:46; Status DC Artificial Tears (Tears Naturale Opth Soln) 1 drop Q4H PRN EACH EYE DRY EYE Last administered on 10/03/16 21:02; Start 09/28/16 at 14:30 Tobramycin/ Dexamethasone (Tobradex Opth Oint) 1 applic QID EACH EYE ; Start at 18:00 Tobramycin/ Dexamethasone 1 drop 1 drop QID EACH EYE Last administered on 08:06; Start 09/29/16 at 18:00 Vancomycin HCl/ Sodium Chloride (Vancomycin Inj/ NS 500 ml Inj) 520 ml @ 250 mls/hr Q12H IV Last administered on 09/30/16 01:26; Start 09/30/16 at 00:00; Stop 09/30/16 at 15:31; Status DC Miscellaneous Information SPECIFIC LAB TO BE DRAWN:VANCOMYCIN TROUGH DATE TO... ONCE ONCE .XX ; Start 10/01/16 at 11:45; Stop 10/01/16 at 11:45; Status DC Insulin Aspart (NovoLOG SUPPLEMENTAL SCALE) 1 ACHS SLIDING SCALE SQ Last administered on 10/04/16 11:34; Start 09/30/16 at 07:00 Fentanyl Citrate (fentaNYL INJ) 100 mcg STK-MED ONCE .ROUTE ; Start 09/30/16 at 12:56; Stop 09/30/16 at 12:57; Status DC Miscellaneous Information ALL NURSING DEPARTME... UNSCH PRN .XX SEE LABEL COMMENTS; Start 09/30/16 at 14:00; Stop 10/01/16 at 13:59; Status DC Propofol (Diprivan 200 Mg/20 ml Inj) 500 mg STK-MED ONCE IV ; Start 09/30/16 at 13:15; Stop 09/30/16 at 18:56; Status DC Neostigmine Methylsulfate (Prostigmin Inj) 3 mg STK-MED ONCE IV ; Start at 13:15; Stop 09/30/16 at 18:56; Status DC Ondansetron HCl (Zofran Inj) 4 mg STK-MED ONCE IV PUSH ; Start 09/30/16 at 13:15 ; Stop 09/30/16 at 18:56; Status DC Sodium Chloride (NS 1000 ml Inj) 1,000 ml STK-MED ONCE IV ; Start 09/30/16 at 13 :15; Stop 09/30/16 at 19:00; Status DC Iohexol 100 ml 100 ml STK-MED ONCE OTHER Last administered on 09/30/16 13:15; Start 09/30/16 at 13:15; Stop 09/30/16 at 19:13; Status DC Lactated Ringer's (Lr 1000 ml Inj) 1,000 ml @ 30 mls/hr Q24H PRN IV SEE LABEL COMMENTS; Start 10/02/16 at 07:00; Stop 10/02/16 at 13:52; Status DC Povidone Iodine (Betadine 5% Antisepsis Kit) 1 applic GLUER PRN EACH NARE SEE LABEL COMMENTS; Start 10/02/16 at 07:00; Stop 10/02/16 at 13:52; Status DC Chlorhexidine Gluconate (Chlorhexidine 2% Cloth) 3 pack GLUER PRN TOPICAL SEE LABEL COMMENTS; Start 10/02/16 at 07:00; Stop 10/02/16 at 13:52; Status DC Metoclopramide HCl (Reglan Inj) 10 mg STK-MED ONCE .ROUTE ; Start 10/02/16 at 11 :02; Stop 10/02/16 at 11:03; Status DC Acetaminophen (Ofirmev Inj) 1,000 mg STK-MED ONCE IV ; Start 10/02/16 at 11:06; Stop 10/02/16 at 11:07; Status DC Bupivacaine HCl/ Epinephrine Bitart (Sensorcaine-Epinephrine Pf 0.5% Inj) 30 ml STK-MED ONCE .ROUTE Last administered on 10/02/16 11:38; Start 10/02/16 at 11: 25; Stop 10/02/16 at 11:26; Status DC Mineral Oil (Muri-Lube Oil) 10 ml STK-MED ONCE .ROUTE Last administered on 10/02 11:38; Start 10/02/16 at 11:25; Stop 10/02/16 at 11:26; Status DC Sodium Chloride (NS Flush) 2 ml UNSCH PRN IV FLUSH FLUSH AFTER USING IV ACCESS ; Start 10/02/16 at 12:15 Sodium Chloride (NS Flush) 2 ml BID IV FLUSH Last administered on 10/04/16 08: 06; Start 10/02/16 at 21:00 Miscellaneous Information (Post-op Orders (for Pharmacy)) STAT ONCE XX ; Start 10/02/16 at 12:00; Stop 10/02/16 at 12:17; Status DC Oxycodone HCl (Roxicodone) 10 mg Q4H PRN PO PAIN SCALE 6 TO 10 Last administered on 10/04/16 11:29; Start 10/02/16 at 12:15 Hydromorphone HCl (Dilaudid Pf Inj) 1 mg Q3H PRN IV BREAKTHROUGH PAIN Last administered on 10/04/16 09:34; Start 10/02/16 at 12:15 Oxycodone HCl (Roxicodone) 5 mg Q4H PRN PO PAIN SCALE 3 TO 5; Start 10/02/16 at 12:15 Naloxone HCl (Narcan Inj) 0.4 mg UNSCH PRN IV SEE LABEL COMMENTS; Start at 12:15 Miscellaneous Information ALL NURSING DEPARTME... UNSCH PRN .XX SEE LABEL COMMENTS; Start 10/02/16 at 12:30; Stop 10/03/16 at 12:29; Status DC Al Hydrox/Mg Hydrox/Simethicone (Mag-Al Plus Susp Liq) 30 ml Q6H PRN PO DYSPEPSIA OR HEARTBURN; Start 10/02/16 at 13:45 Calcium Carbonate (Tums Chew) 500 mg Q6H PRN CHEW DYSPEPSIA OR HEARTBURN; Start 10/02/16 at 13:45 Famotidine (Pepcid) 20 mg BID PO Last administered on 10/04/16 08:05; Start at 21:00 Benzocaine/Menthol (Cepacol Extra Jina (Sugar Free)) 1 lozenge Q2H PRN BUCCAL sore throat Last administered on 10/03/16 09:17; Start 10/02/16 at 14:30 Midazolam HCl (Versed Inj) 2 mg STK-MED ONCE .ROUTE ; Start 10/02/16 at 18:08; Stop 10/02/16 at 18:09; Status DC Fentanyl Citrate (fentaNYL INJ) 250 mcg STK-MED ONCE .ROUTE ; Start 10/02/16 at 18:08; Stop 10/02/16 at 18:09; Status DC Other Results Laboratory Tests Test 10/03/16 04:43 White Blood Count 5.0 TH/MM3 Red Blood Count 3.90 MIL/MM3 Hemoglobin 11.7 GM/DL Hematocrit 35.1 % Mean Corpuscular Volume 90.0 FL Mean Corpuscular Hemoglobin 29.9 PG Mean Corpuscular Hemoglobin 33.2 % Concent Red Cell Distribution Width 14.7 % Platelet Count 103 TH/MM3 Mean Platelet Volume 9.4 FL Laboratory Tests Test 10/03/16 03:03 Total Bilirubin 0.7 MG/DL Direct Bilirubin 0.2 MG/DL Indirect Bilirubin 0.5 MG/DL Aspartate Amino Transf 81 U/L (AST/SGOT) Alanine Aminotransferase 162 U/L (ALT/SGPT) Alkaline Phosphatase 137 U/L Total Protein 7.5 GM/DL Albumin 3.3 GM/DL Lipase 120 U/L Exam-Podiatry Constitutional General appearance: comfortable Nutritional status: normal Orientation: alert and oriented x3 Dermatological Exam Skin Temp - Right: Within Normal Limits Skin Texture - Right: Within Normal Limits Skin Elasticity - Right: Within Normal Limits Skin Tugor - Right: Within Normal Limits Hair Growth - Right: Within Normal Limits Pigmentation - Right: Within Normal Limits Skin Temp - Left: Within Normal Limits Skin Texture - Left: Within Normal Limits Skin Elasticity - Left: Within Normal Limits Skin Tugor - Left: Within Normal Limits Hair Growth - Left: Within Normal Limits Pigmentation - Left: Within Normal Limits Other: Scars, Surgery,Injury Vida site of the right thigh is granulating nicely. Split-thickness skin graft to the right foot is in place. No compromise noted. Vascular/Lymphatic Exam R Dorsails Pedis: Palpable L Dorsails Pedis: Palpable R Posterior Tibial: Palpable L Posterior Tibial: Palpable Neurologic Exam Present on right: Tingling, Paraesthesia Present on left: Tingling, Paraesthesia Assessment & Plan Diagnosis: (1) Diabetic foot ulcer Status: Acute (2) Osteomyelitis of right foot Status: Resolved A/P PLAN: Dressings to harvest site and right foot was changed. Patient can be discharged home. No dressing changes needed. Follow up in my office next week. Patient to call for an appointment. No weightbearing right foot. Problem Qualifiers (1) Diabetic foot ulcer: Qualified Code: E11.621 - Diabetic ulcer of other part of right foot associated with type 2 diabetes mellitus, unspecified ulcer stage (2) Osteomyelitis of right foot: Qualified Code: M86.171 - Other acute osteomyelitis of right foot Dustin Stout DPM Oct 04, 2016 12:54
[2016-10-04 16:00] VITALS: BP 148/81; PULSE 64; RESP 17; TEMP 95.5; O2SAT 97
== END 2016-10-04 17:34 | disposition home or self-care (01) | DRG 240 ==
LOC: NEPC 15:31 → NEDA 18:24 → N07A 21:37 → N07B 09-29 22:02 → HOCB 09-29 22:03 → N07A 09-29 22:18
PROVIDERS: ADMIT Internal Medicine; ATTEND Internal Medicine
PROC: 0Y6M0ZC Detachment at Right Foot, Partial 3rd Ray, Open Approach (ICD-10-PCS; 2016-09-26)
PROC: 0Y6M0ZD Detachment at Right Foot, Partial 4th Ray, Open Approach (ICD-10-PCS; 2016-09-26)
PROC: 0Y6M0ZF Detachment at Right Foot, Partial 5th Ray, Open Approach (ICD-10-PCS; 2016-09-26)
PROC: 0Y6M0ZB Detachment at Right Foot, Partial 2nd Ray, Open Approach (ICD-10-PCS; principal; 2016-09-26 16:11)
PROC: 0F798DZ Dilation of Common Bile Duct with Intraluminal Device, Via Natural or Artificial Opening Endoscopic (ICD-10-PCS; 2016-09-30)
PROC: 0HRMX74 Replacement of Right Foot Skin with Autologous Tissue Substitute, Partial Thickness, External Approach (ICD-10-PCS; 2016-10-02)
PROC: 0HBHXZZ Excision of Right Upper Leg Skin, External Approach (ICD-10-PCS; 2016-10-02)
DX: E11.52 Type 2 diabetes mellitus with diabetic peripheral angiopathy with gangrene (principal); M86.171 Other acute osteomyelitis, right ankle and foot; E11.621 Type 2 diabetes mellitus with foot ulcer; E11.40 Type 2 diabetes mellitus with diabetic neuropathy, unspecified; L03.115 Cellulitis of right lower limb; E11.65 Type 2 diabetes mellitus with hyperglycemia; L97.519 Non-pressure chronic ulcer of other part of right foot with unspecified severity; I10 Essential (primary) hypertension; G89.29 Other chronic pain; F32.9 Major depressive disorder, single episode, unspecified; J45.909 Unspecified asthma, uncomplicated; L98.499 Non-pressure chronic ulcer of skin of other sites with unspecified severity; E11.69 Type 2 diabetes mellitus with other specified complication; H02.051 Trichiasis without entropion right upper eyelid; K80.50 Calculus of bile duct without cholangitis or cholecystitis without obstruction; K59.00 Constipation, unspecified; H10.9 Unspecified conjunctivitis; R00.1 Bradycardia, unspecified; R74.0 Nonspecific elevation of levels of transaminase and lactic acid dehydrogenase [LDH]; M19.90 Unspecified osteoarthritis, unspecified site; B95.1 Streptococcus, group B, as the cause of diseases classified elsewhere; B95.61 Methicillin susceptible Staphylococcus aureus infection as the cause of diseases classified elsewhere; F10.10 Alcohol abuse, uncomplicated; F17.210 Nicotine dependence, cigarettes, uncomplicated; Z79.84 Long term (current) use of oral hypoglycemic drugs; Z89.411 Acquired absence of right great toe; Z90.81 Acquired absence of spleen
CPT/HCPCS: 71020; 73630; 73720; 74330; 75635; 76705; 80053; 80076; 80202; 82248; 82565; 82948; 83036; 83605; 83690; 83735; 84100; 85025; 85027; 85610; 85652; 85730; 86140; 86403; 87015; 87040; 87070; 87077; 87147; 87186; 87205; 88304; 88307; 88311; 93005; 96365; 96375; A9579; C1769; C2625; J0131; J1170; J1644; J1815; J2250; J2270; J2405; J2543; J2710; J2765; J3010; J3370; J7030; J7040; J7050; J7120; Q9967

== ENCOUNTER 2017-01-01 14:57 | Inpatient (IN) | payer MEDICAID ==
[~2017-01-01] VITALS: Ht 175.3 cm; Wt 91.9 kg
[~2017-01-01 14:57] MED LIST changes: +AUGM500T7 PO; +BUTR5DIS T-DERMAL; +FAMO20TA2 PO; +LEVO500T8 PO; +LISI10TA3 PO; +METF500T PO; -ULTR50TA PO; +WALKER WHEELS/F1 MIS; +WHEEMIS3
[2017-01-01 14:58] VITALS: BP 137/93; PULSE 107; RESP 17; TEMP 98.4; O2SAT 98
[2017-01-01 16:54] VITALS: BP 135/68; PULSE 81; RESP 16; O2SAT 98
[2017-01-01] MEDS ORDERED: VANCOMYCIN INJ 1,350 MG in SODIUM CHLORID 0.9% 500 ML INJ 500 ML IV ONE (17:00)
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
[2017-01-01 17:42] LABS: BASOPHIL # 0.1 TH/MM3 (0-0.2); EOSINOPHIL # 0.3 TH/MM3 (0-0.4); EOSINOPHIL % 3.6 % (0.0-4.0); HEMATOCRIT 47.1 % (39.0-51.0); HEMO FLAGS DIFF FINAL; LYMPH % 32.6 % (9.0-44.0); LYMPHOCYTE # 2.8 TH/MM3 (1.0-4.8); MEAN CELL VOLUME 91.6 FL (80.0-100.0); MEAN CORPUSCULAR HGB CONC 33.8 % (32.0-36.0); MONO % 4.7 % (0.0-8.0); NEUT % 58.1 % (16.0-70.0); PLATELET COUNT 198 TH/MM3 (150-450); RED BLOOD COUNT 5.15 MIL/MM3 (4.50-5.90); RED CELL DISTRIBUTION WIDTH 14.9 % (11.6-17.2); WHITE BLOOD COUNT 8.6 TH/MM3 (4.0-11.0)
--- NOTE | 2017-01-01 17:46 | RADRPT ---
EXAM DATE/TIME: 01/01/2017 17:15 [place] COMPARISON: FOOT RIGHT COMPLETE ([id number]), September 26, 2016, 17:39. INDICATIONS : Chronic pain. MEDICAL HISTORY : Diabetes mellitus type I. Neuropathy. SURGICAL HISTORY : Multiple amputations. ENCOUNTER: Initial ACUITY: >1 year PAIN SCORE: 10/10 LOCATION: Right foot. FINDINGS: Right foot amputation at the level of the proximal metatarsals again noted. Bones are very osteopenic . Soft tissues of the stump are swollen and very irregular. There is an ill-defined lucency distally of the metatarsal remnants, especially the fifth. CONCLUSION: Previous midfoot amputation and with possible early bone destruction distally of the fifth metatarsal remnant. Bruce Espitia MD on January 01, 2017 at 17:42 Board Certified Radiologist. This report was verified electronically.
[2017-01-01 17:49] LABS: APTT (PATIENT) 32.2 SEC (24.3-30.1); INTERNATIONAL NORMALIZED RATIO 0.9 RATIO
[2017-01-01 18:06] LABS: BICARBONATE 22.9 MEQ/L (21.0-32.0); POTASSIUM 3.6 MEQ/L (3.5-5.1)
[2017-01-01] MEDS ORDERED: ETHYL CHLORIDE AER SPR 120 ML CAN TOPICAL ONE (18:15)
[2017-01-01] MEDS ORDERED: ACETAMINOPHEN 325 MG TAB PO PRN (18:30)
[2017-01-01] MEDS ORDERED: ONDANSETRON HCL 4 MG/2 ML VIAL IVP PRN (18:30)
[2017-01-01] MEDS ORDERED: Vancomycin Consult Pharmacy 1 EA OTHER SCH (18:30)
[2017-01-01] MEDS ORDERED: MORPHINE SULFATE 4 MG/ML INJ IV PUSH ONE (18:30)
[2017-01-01] MEDS ORDERED: VANCOMYCIN INJ 1,000 MG in SODIUM CHLOR 0.9% 250 ML INJ 250 ML IV SCH (18:30)
[2017-01-01] MEDS ORDERED: SENNOSIDES 8.6 MG TAB PO PRN (18:30)
[2017-01-01] MEDS ORDERED: SODIUM CHLORIDE 0.9% FLUSH 10 ML FLUSH IV FLUSH PRN (18:30)
[2017-01-01] MEDS ORDERED: NALOXONE HCL 0.4 MG/ML AMP IV PUSH PRN (18:30)
[2017-01-01] MEDS ORDERED: BISACODYL 10 MG SUPP RECTAL PRN (18:30)
[2017-01-01] MEDS ORDERED: GLUCAGON 1 MG/ML VIAL OTHER PRN (18:45)
[2017-01-01] MEDS ORDERED: DEXTROSE 50% IN WATER 50 ML VIAL(D50) IV PRN (18:45)
[2017-01-01 19:30] VITALS: BP 152/85; PULSE 85; RESP 24; O2SAT 100
[2017-01-01 20:00] VITALS: BP 124/78; PULSE 70; RESP 19; O2SAT 98
[2017-01-01] MEDS ORDERED: ENOXAPARIN SODIUM 40 MG/0.4 ML SYRINGE SQ SCH (20:00)
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
[2017-01-01] MEDS: INSULIN ASPART SUPPLEMENTAL SCALE SQ SCH (21:00)
[2017-01-01] MEDS: FAMOTIDINE 20 MG TAB PO SCH (21:22)
[2017-01-01] MEDS: DOCUSATE SODIUM 50 MG/SENNA 8.6 MG TAB PO SCH (21:22)
[2017-01-01] MEDS: SODIUM CHLORIDE 0.9% FLUSH 10 ML FLUSH IV FLUSH SCH (21:22)
[2017-01-02] MEDS: VANCOMYCIN INJ 1,800 MG in SODIUM CHLORID 0.9% 500 ML INJ 500 ML IV SCH ×3 (00:36→23:33)
[2017-01-02 04:34] VITALS: BP 109/65; PULSE 78; RESP 20; TEMP 98.4; O2SAT 98
[2017-01-02 07:14] VITALS: BP 115/61; PULSE 51; RESP 18; TEMP 97.9; O2SAT 98
[2017-01-02] MEDS: INSULIN ASPART SUPPLEMENTAL SCALE SQ SCH ×4 (08:00→21:00)
--- NOTE | 2017-01-02 08:48 | HHI.PR ---
Addendum to Inpatient Note Addendum Reason: Additional Documentation Additional Information Patient has not been seen by myself since 11/29/2016. Patient failed to follow up for hyperbaric therapy and wound care. Patient now has osteomyelitis of the remaining part of his foot. Because of patient's compliance history he would benefit from a below-knee amputation. It is in my opinion that his only treatment would be the amputation. Await vascular surgery consult for procedure. Should be noted that the patient came in with maggots in his dressing. Dustin Stout DPM Jan 02, 2017 08:48
[2017-01-02] MEDS: FAMOTIDINE 20 MG TAB PO SCH ×2 (09:37→21:35)
[2017-01-02] MEDS: SODIUM CHLORIDE 0.9% FLUSH 10 ML FLUSH IV FLUSH SCH ×2 (09:37→21:40)
[2017-01-02] MEDS: DOCUSATE SODIUM 50 MG/SENNA 8.6 MG TAB PO SCH ×2 (09:37→21:34)
[2017-01-02] MEDS: LISINOPRIL 10 MG TAB PO SCH (09:37)
[2017-01-02 11:43] VITALS: BP 141/81; PULSE 55; RESP 20; TEMP 98.1; O2SAT 98
[2017-01-02] MEDS ORDERED: SUCCINYLCHOLINE CHLORIDE 100 MG/5 ML SYRINGE IV PUSH ONE (12:00)
[2017-01-02] MEDS ORDERED: LIDOCAINE HCL 1% PF 5 ML AMPULE OTHER ONE (12:00)
[2017-01-02] MEDS ORDERED: MORPHINE SULFATE 4 MG/ML INJ IV ONE (12:00)
[2017-01-02] MEDS ORDERED: MIDAZOLAM HCL 2 MG/2 ML VIAL IV ONE (12:00)
[2017-01-02] MEDS ORDERED: ESMOLOL HCL 100 MG/10 ML VIAL IV ONE (12:00)
[2017-01-02] MEDS ORDERED: ePHEDrine/NS 25 MG/5 ML SYR IV ONE (12:00)
[2017-01-02] MEDS ORDERED: PROPOFOL 200 MG/20 ML AMP IV ONE (12:00)
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
[2017-01-02] MEDS: MORPHINE SULFATE 4 MG/ML INJ IV PUSH PRN ×3 (12:40→22:41)
--- NOTE | 2017-01-02 13:01 | HHI.PR ---
Subjective Remarks Follow-up for osteomyelitis Patient complaining of pain. He stated that he is not any pain medication. Patient scheduled for BKA today. Dealt with patient's nurse. Objective Vitals Vital Signs Date Time Temp Pulse Resp B/P (MAP) Pulse Ox O2 Delivery O2 Flow Rate FiO2 01/02/17 11:43 98.1 55 20 141/81 (101) 98 01/02/17 07:14 97.9 51 18 115/61 (79) 98 01/02/17 04:34 98.4 78 20 109/65 (80) 98 01/01/17 21:49 01/01/17 20:00 98 01/01/17 20:00 70 19 124/78 (93) 98 Room Air 01/01/17 19:30 85 24 152/85 (107) 100 Room Air 01/01/17 16:54 81 16 135/68 (90) 98 Room Air 01/01/17 16:42 16 01/01/17 14:58 98.4 107 17 137/93 (108) 98 I/O 01/01/17 01/01/17 01/01/17 01/02/17 01/02/17 01/02/17 07:00 15:00 23:00 07:00 15:00 23:00 Intake Total 500 ml Balance 500 ml Intake IV Total 500 ml Result Diagram: 01/01/17 1700 01/01/17 1700 Objective Remarks GENERAL: Middle-aged white male in no acute distress. CARDIOVASCULAR: Regular rate and rhythm. No obvious murmurs to auscultation. No chest tenderness to palpation. RESPIRATORY: No obvious rhonchi or wheezing. Clear to auscultation. Breath sounds equal bilaterally. GASTROINTESTINAL: Abdomen soft, non-tender, nondistended. BS normal. MUSCULOSKELETAL: Extremities without clubbing, cyanosis, or edema. No obvious deformities. Right foot partial amputation, open wound w/ foul-smelling, purulent drainage, +maggots. NEUROLOGICAL: Awake, alert and oriented x4. No focal neurologic deficits. Moving both upper and lower extremities spontaneously. Medications and IVs Current Medications Vancomycin HCl 1350 mg/Sodium Chloride 513.5 ml @ 250 mls/hr ONCE ONCE IV Last administered on 01/01/17t 17:38; Start 01/01/17 at 17:00; Stop 01/01/17 at 19:03; Status DC Ethyl Chloride (Ethyl Chloride [place]) 1 applic ONCE ONCE TOPICAL Last administered on 01/01/17 19:33; Start 01/01/17 at 18:15; Stop 01/01/17 at 18:16 ; Status DC Morphine Sulfate (Morphine Inj) 4 mg ONCE ONCE IV PUSH Last administered on 19:34; Start 01/01/17 at 18:30; Stop 01/01/17 at 18:31; Status DC Sodium Chloride (NS Flush) 2 ml UNSCH PRN IV FLUSH FLUSH AFTER USING IV ACCESS ; Start 01/01/17 at 18:30 Sodium Chloride (NS Flush) 2 ml BID IV FLUSH Last administered on 01/02/17 09: 37; Start 01/01/17 at 21:00 Acetaminophen (Tylenol) 650 mg Q4H PRN PO TEMP > 100.4 Last administered on 00:35; Start 01/01/17 at 18:30 Ondansetron HCl (Zofran Inj) 4 mg Q6H PRN IVP NAUSEA OR VOMITING; Start at 18:30 Enoxaparin Sodium (Lovenox Inj) 40 mg Q24H SQ Last administered on 01/01/17 21 :22; Start 01/01/17 at 20:00 Naloxone HCl (Narcan Inj) 0.4 mg UNSCH PRN IV PUSH SEE LABEL COMMENTS; Start at 18:30 Senna/Docusate Sodium (Chey-Colace) 1 tab BID PO Last administered on 09:37; Start 01/01/17 at 21:00 Magnesium Hydroxide (Milk Of Magnesia Liq) 30 ml Q12H PRN PO MILD - MODERATE CONSTIPATION; Start 01/01/17 at 18:30 Sennosides (Senokot) 17.2 mg Q12H PRN PO MODERATE - SEVERE CONSTIPATION; Start 01/01/17 at 18:30 Bisacodyl (Dulcolax Supp) 10 mg DAILY PRN RECTAL SEVERE CONSITIPATION; Start at 18:30 Lactulose (Lactulose Liq) 30 ml DAILY PRN PO SEVERE CONSITIPATION; Start at 18:30 Pharmacy Profile Note 0 ml @ 0 mls/hr UNSCH OTHER ; Start 01/01/17 at 18:30 Vancomycin HCl 1000 mg/Sodium Chloride 250 ml @ 250 mls/hr Q12H IV ; Start at 18:30; Stop 01/01/17 at 18:32; Status DC Famotidine (Pepcid) 20 mg BID PO Last administered on 01/02/17 09:37; Start at 21:00 Lisinopril (Prinivil) 10 mg DAILY PO Last administered on 01/02/17 09:37; Start 01/02/17 at 09:00 Dextrose (D50w (Vial) Inj) 50 ml UNSCH PRN IV HYPOGLYCEMIA-SEE COMMENTS; Start 01/01/17 at 18:45 Glucagon (Glucagon Inj) 1 mg UNSCH PRN OTHER HYPOGLYCEMIA-SEE COMMENTS; Start 01/01/17 at 18:45 Insulin Aspart (NovoLOG SUPPLEMENTAL SCALE) 1 ACHS SLIDING SCALE SQ ; Start at 21:00 Vancomycin HCl 1800 mg/Sodium Chloride 518 ml @ 250 mls/hr Q12H IV Last administered on 01/02/17 12:41; Start 01/02/17 at 00:00 Miscellaneous Information SPECIFIC LAB TO BE MECHE... ONCE ONCE .XX ; Start 01/03 at 11:45; Stop 01/03/17 at 11:46 Morphine Sulfate (Morphine Inj) 2 mg Q3H PRN IV PUSH SEE LABEL COMMENTS Last administered on 01/02/17 12:40; Start 01/02/17 at 12:00 Acetaminophen/ Hydrocodone Bitart ([place] 5-325 Mg) 1 tab Q4H PRN PO pain 1-7; Start 01/02/17 at 12:00 Acetaminophen/ Hydrocodone Bitart ([place] 5-325 Mg) 2 tab Q4H PRN PO PAIN SCALE 8-10; Start 01/02/17 at 12:00 A/P Problem List: (1) Osteomyelitis of right foot ICD Code: M86.9 - Osteomyelitis, unspecified Status: Resolved (2) Non-compliance ICD Code: Z91.19 - Patient's noncompliance with other medical treatment and regimen Status: Acute (3) HTN (hypertension) ICD Code: I10 - Essential (primary) hypertension Status: Chronic (4) DM (diabetes mellitus) ICD Code: E11.9 - Type 2 diabetes mellitus without complications Assessment and Plan Right Foot Osteomyelitis: -chronic right foot infection secondary to noncompliance. Foot X-ray w/ previous midfoot amputation and possible early bone destruction of fifth metatarsal remnant. S/p Blood Cultures, IV Vanc. Follow up cultures, continue IV Abx. -Patient scheduled for BKA today with general surgery. -[employer] Regional Consultant consulted and recommend BKA. HTN: Controlled. -Continue home medication. T2DM: - Sliding scale w/ Accu-Cheks. Hold Metformin for now. DVT Prophylaxis: Gertrudis Brewer MD Jan 02, 2017 13:01
[2017-01-02] MEDS ORDERED: FAMOTIDINE 20 MG/2 ML VIAL ONE (13:36)
[2017-01-02] MEDS ORDERED: DO NOT ADM ANY ANTICOAGULANT DRUGS PRN (15:35)
[2017-01-02] MEDS ORDERED: *MEPERIDINE 25 MG INJ VIAL PERIprocedural Use ONLY ONE (15:40)
[2017-01-02] MEDS ORDERED: *HYDROmorphone PF 1 MG VIAL PERIprocedural Use ONLY ONE ×2 (15:47→16:16)
[2017-01-02] MEDS: ACETAMINOPHEN/HYDROcodone 325 MG/5 MG TAB PO PRN ×2 (17:30→21:35)
[2017-01-02 20:00] VITALS: BP 123/72; PULSE 74; RESP 20; TEMP 96.1; O2SAT 98
[2017-01-02] MEDS ORDERED: diphenhydrAMINE HCL 50 MG/ML VIAL IV PUSH ONE (22:30)
[2017-01-03] VITALS (7 sets, daily range): BP systolic 103–146; BP diastolic 57–70; PULSE 52–73; RESP 16–20; TEMP 96.5–98; O2SAT 96–99
[2017-01-03] MEDS: ACETAMINOPHEN/HYDROcodone 325 MG/5 MG TAB PO PRN ×6 (01:30→20:43)
[2017-01-03] MEDS: MORPHINE SULFATE 4 MG/ML INJ IV PUSH PRN ×4 (02:25→22:05)
[2017-01-03 07:58] LABS: AUTOMATED NEUTROPHIL # 3.4 TH/MM3 (1.8-7.7); BASOPHIL % 0.5 % (0.0-2.0); EOSINOPHIL # 0.2 TH/MM3 (0-0.4); EOSINOPHIL % 3.2 % (0.0-4.0); HEMO FLAGS DIFF FINAL; LYMPH % 30.5 % (9.0-44.0); LYMPHOCYTE # 1.7 TH/MM3 (1.0-4.8); MEAN CELL VOLUME 92.8 FL (80.0-100.0); MEAN CORPUSCULAR HGB CONC 33.4 % (32.0-36.0); MONO % 5.3 % (0.0-8.0); NEUT % 60.5 % (16.0-70.0); PLATELET COUNT 142 TH/MM3 (150-450); RED BLOOD COUNT 4.09 MIL/MM3 (4.50-5.90); RED CELL DISTRIBUTION WIDTH 14.7 % (11.6-17.2); WHITE BLOOD COUNT 5.7 TH/MM3 (4.0-11.0)
[2017-01-03] MEDS: INSULIN ASPART SUPPLEMENTAL SCALE SQ SCH ×4 (08:00→20:48)
[2017-01-03 08:46] LABS: BICARBONATE 27.9 MEQ/L (21.0-32.0)
[2017-01-03 09:03] LABS: POTASSIUM 3.5 MEQ/L (3.5-5.1)
[2017-01-03] MEDS: LISINOPRIL 10 MG TAB PO SCH (09:46)
[2017-01-03] MEDS: DOCUSATE SODIUM 50 MG/SENNA 8.6 MG TAB PO SCH ×2 (09:48→20:37)
[2017-01-03] MEDS: FAMOTIDINE 20 MG TAB PO SCH ×2 (09:48→20:37)
[2017-01-03] MEDS: SODIUM CHLORIDE 0.9% FLUSH 10 ML FLUSH IV FLUSH SCH ×2 (09:49→20:37)
[2017-01-03] MEDS: ENOXAPARIN SODIUM 40 MG/0.4 ML SYRINGE SQ SCH (09:50)
[2017-01-03] MEDS ORDERED: PNEUMOCOCCAL POLYVALENT INJ 25 MCG/0.5 ML SYR IM ONE (10:00)
--- NOTE | 2017-01-03 10:47 | HHI.PR ---
Subjective Remarks Follow-up for BKA Patient's nurse at the bedside during the interview. Patient asking camron post to remove hair from his eye. He stated that he has ingrown hair inside his eye and and that if he does not remove his eyes would get swollen. I told patient that I am not able to give him that because he may has more damage to his eyes and he has to see an eye doctor. I then also asked patient if I can just irrigate his eye to see if that helped but he refused. Patient's nurse also stated that after patient had surgery he has some mild swelling of his lip and that he stated that he was allergic to latex. Patient is on lisinopril but he has been on this medication for many years. At the moment he is asymptomatic. Deny any swelling, shortness of breathing, chest pain, palpitation, lightheadedness or dizziness. Patient also asked to see GI physician because in September 2016 he had a stent placement with Dr. Lopez and he was told to follow with Dr. Lopez in 4-6 weeks for removal of stent but the facility would not accept his insurance. Objective Vitals Vital Signs Date Time Temp Pulse Resp B/P (MAP) Pulse Ox O2 Delivery O2 Flow Rate FiO2 01/03/17 08:00 97.8 52 18 103/58 (73) 99 01/03/17 04:00 96.5 53 18 112/57 (75) 96 01/03/17 00:00 97.0 60 20 119/64 (82) 98 01/02/17 20:00 96.1 74 20 123/72 (89) 98 01/02/17 16:35 73 16 97 Nasal Cannula 2 01/02/17 16:30 97.8 72 16 150/75 (100) 97 Nasal Cannula 2 01/02/17 16:15 74 16 157/76 (103) 96 Nasal Cannula 2 01/02/17 16:00 75 16 165/78 (107) 99 Nasal Cannula 3 01/02/17 15:45 77 16 177/85 (115) 97 Nasal Cannula 3 01/02/17 15:35 98.2 78 16 175/85 (115) 96 Nasal Cannula 3 01/02/17 11:43 98.1 55 20 141/81 (101) 98 I/O 9/18/17 9/18/17 01/02/17 01/03/17 01/03/17 01/03/17 07:00 15:00 23:00 07:00 15:00 23:00 Intake Total 1200 ml 518 ml Output Total 450 ml 450 ml Balance 750 ml 68 ml Intake IV Total 1200 ml 518 ml Output Urine Total 250 ml 450 ml Estimated Blood Loss 200 ml Result Diagram: 01/03/17 0600 01/03/17 0600 Objective Remarks GENERAL: Middle-aged white male in no acute distress. CARDIOVASCULAR: Regular rate and rhythm. No obvious murmurs to auscultation. No chest tenderness to palpation. RESPIRATORY: No obvious rhonchi or wheezing. Clear to auscultation. Breath sounds equal bilaterally. GASTROINTESTINAL: Abdomen soft, non-tender, nondistended. BS normal. MUSCULOSKELETAL: Extremities without clubbing, cyanosis, or edema. No obvious deformities. Right BKA. NEUROLOGICAL: Awake, alert and oriented x4. No focal neurologic deficits. Moving both upper and lower extremities spontaneously. Medications and IVs Current Medications Vancomycin HCl 1350 mg/Sodium Chloride 513.5 ml @ 250 mls/hr ONCE ONCE IV Last administered on 01/01/17 17:38; Start 01/01/17 at 17:00; Stop 01/01/17 at 19:03; Status DC Ethyl Chloride (Ethyl Chloride [place]) 1 applic ONCE ONCE TOPICAL Last administered on 01/01/17 19:33; Start 01/01/17 at 18:15; Stop 01/01/17 at 18:16 ; Status DC Morphine Sulfate (Morphine Inj) 4 mg ONCE ONCE IV PUSH Last administered on 19:34; Start 01/01/17 at 18:30; Stop 01/01/17 at 18:31; Status DC Sodium Chloride (NS Flush) 2 ml UNSCH PRN IV FLUSH FLUSH AFTER USING IV ACCESS ; Start 01/01/17 at 18:30 Sodium Chloride (NS Flush) 2 ml BID IV FLUSH Last administered on 01/03/17 09: 49; Start 01/01/17 at 21:00 Acetaminophen (Tylenol) 650 mg Q4H PRN PO TEMP > 100.4 Last administered on 00:35; Start 01/01/17 at 18:30 Ondansetron HCl (Zofran Inj) 4 mg Q6H PRN IVP NAUSEA OR VOMITING; Start at 18:30 Enoxaparin Sodium (Lovenox Inj) 40 mg Q24H SQ Last administered on 01/01/17 21 :22; Start 01/01/17 at 20:00; Stop 01/02/17 at 20:00; Status DC Naloxone HCl (Narcan Inj) 0.4 mg UNSCH PRN IV PUSH SEE LABEL COMMENTS; Start at 18:30 Senna/Docusate Sodium (Chey-Colace) 1 tab BID PO Last administered on 09:48; Start 01/01/17 at 21:00 Magnesium Hydroxide (Milk Of Magnesia Liq) 30 ml Q12H PRN PO MILD - MODERATE CONSTIPATION; Start 01/01/17 at 18:30 Sennosides (Senokot) 17.2 mg Q12H PRN PO MODERATE - SEVERE CONSTIPATION; Start 01/01/17 at 18:30 Bisacodyl (Dulcolax Supp) 10 mg DAILY PRN RECTAL SEVERE CONSITIPATION; Start at 18:30 Lactulose (Lactulose Liq) 30 ml DAILY PRN PO SEVERE CONSITIPATION; Start at 18:30 Pharmacy Profile Note 0 ml @ 0 mls/hr UNSCH OTHER ; Start 01/01/17 at 18:30 Vancomycin HCl 1000 mg/Sodium Chloride 250 ml @ 250 mls/hr Q12H IV ; Start at 18:30; Stop 01/01/17 at 18:32; Status DC Famotidine (Pepcid) 20 mg BID PO Last administered on 01/03/17 09:48; Start at 21:00 Lisinopril (Prinivil) 10 mg DAILY PO Last administered on 01/03/17 09:46; Start 01/02/17 at 09:00 Dextrose (D50w (Vial) Inj) 50 ml UNSCH PRN IV HYPOGLYCEMIA-SEE COMMENTS; Start 01/01/17 at 18:45 Glucagon (Glucagon Inj) 1 mg UNSCH PRN OTHER HYPOGLYCEMIA-SEE COMMENTS; Start 01/01/17 at 18:45 Insulin Aspart (NovoLOG SUPPLEMENTAL SCALE) 1 ACHS SLIDING SCALE SQ ; Start at 21:00 Vancomycin HCl 1800 mg/Sodium Chloride 518 ml @ 250 mls/hr Q12H IV Last administered on 01/02/17 23:33; Start 01/02/17 at 00:00 Miscellaneous Information SPECIFIC LAB TO BE MECHE... ONCE ONCE .XX ; Start 01/03 at 11:45; Stop 01/03/17 at 11:46 Morphine Sulfate (Morphine Inj) 2 mg Q3H PRN IV PUSH SEE LABEL COMMENTS Last administered on 01/03/17 06:18; Start 01/02/17 at 12:00; Stop 01/04/17 at 12:00 Acetaminophen/ Hydrocodone Bitart ([place] 5-325 Mg) 1 tab Q4H PRN PO pain 1-7 Last administered on 01/03/17 09:54; Start 01/02/17 at 12:00 Acetaminophen/ Hydrocodone Bitart ([place] 5-325 Mg) 2 tab Q4H PRN PO PAIN SCALE 8-10 Last administered on 01/03/17 05:29; Start 01/02/17 at 12:00 Famotidine (Pepcid Inj) 20 mg STK-MED ONCE .ROUTE ; Start 01/02/17 at 13:36; Stop 01/02/17 at 13:37; Status DC Meperidine HCl (*DEMEROL INJ PERIprocedural ONLY) 25 mg STK-MED ONCE .ROUTE Last administered on 01/02/17 15:40; Start 01/02/17 at 15:40; Stop 01/02/17 at 15:41; Status DC Hydromorphone HCl (*DILAUDID PF INJ PERIprocedural ONLY) 1 mg STK-MED ONCE .ROUTE Last administered on 01/02/17 15:47; Start 01/02/17 at 15:47; Stop at 15:48; Status DC Miscellaneous Information ALL NURSING DEPARTME... UNSCH PRN .XX SEE LABEL COMMENTS; Start 01/02/17 at 15:35; Stop 01/03/17 at 15:34 Hydromorphone HCl (*DILAUDID PF INJ PERIprocedural ONLY) 1 mg STK-MED ONCE .ROUTE Last administered on 01/02/17 16:16; Start 01/02/17 at 16:16; Stop at 16:17; Status DC Pneumococcal Polyvalent Vaccine (Pneumovax-23 Inj) 25 mcg ONCE ONCE IM ; Start 01/03/17 at 10:00; Stop 01/03/17 at 10:01; Status DC Enoxaparin Sodium (Lovenox Inj) 40 mg DAILY SQ Last administered on 01/03/17 09:50; Start 01/03/17 at 09:00 Diphenhydramine HCl (Benadryl Inj) 25 mg ONCE ONCE IV PUSH Last administered on 01/02/17 22:21; Start 01/02/17 at 22:30; Stop 01/02/17 at 22:31; Status DC A/P Problem List: (1) Osteomyelitis of right foot ICD Code: M86.9 - Osteomyelitis, unspecified Status: Resolved (2) Non-compliance ICD Code: Z91.19 - Patient's noncompliance with other medical treatment and regimen Status: Acute (3) HTN (hypertension) ICD Code: I10 - Essential (primary) hypertension Status: Chronic (4) DM (diabetes mellitus) ICD Code: E11.9 - Type 2 diabetes mellitus without complications Assessment and Plan Right Foot Osteomyelitis: -chronic right foot infection secondary to noncompliance. Foot X-ray w/ previous midfoot amputation and possible early bone destruction of fifth metatarsal remnant. S -Status post BKA. HTN: Controlled. -Continue home medication. eye pain secondary to ingrown hair -Will consult airline stewardess but this can be done as outpatient. -Patient refused any irrigation. Educated that I can not give him tweezer because that can cause more injury to his eye. Biliary stent -Noncompliant. Consult GI. T2DM: - Sliding scale w/ Accu-Cheks. Hold Metformin for now. DVT Prophylaxis: Lovenox Dealt with nurse with management will remove Joseph. Gertrudis Wellington MD Jan 03, 2017 10:47
[2017-01-03] MEDS ORDERED: PHARMACY ORDERED LAB ONE (11:45)
[2017-01-03] MEDS: VANCOMYCIN INJ 1,800 MG in SODIUM CHLORID 0.9% 500 ML INJ 500 ML IV SCH (12:00)
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
--- NOTE | 2017-01-03 13:16 | PD.CAR.PN ---
CVT Progress Note Subjective/Hospital Course: 51-year-old noncompliant male with long-standing 2 diabetes mellitus smoking about a pack a day most of his adult life. Patient ended up with the right transmetatarsal amputation and then did not follow up so the whole area got infected during the store when he was walking through dirty water. Patient came to the hospital with infected right foot stump, crawling with maggots in involved with gangrene. I reviewed CTA with runoff that was done in September this year and this is surprisingly clean as far as peripheral vascular disease is concerned, nonetheless patient has small vessel disease in both legs At this point there are no other options available and I agree with Dr. 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 Dressing is dry clean We will leave the dressing on for 72 hours and then remove it Nothing to add to care at this time from vascular point Objective: Vital Signs Date Time Temp Pulse Resp B/P (MAP) Pulse Ox O2 Delivery O2 Flow Rate FiO2 01/03/17 12:00 96.8 69 16 133/70 (91) 99 01/03/17 08:00 97.8 52 18 103/58 (73) 99 01/03/17 04:00 96.5 53 18 112/57 (75) 96 01/03/17 00:00 97.0 60 20 119/64 (82) 98 01/02/17 20:00 96.1 74 20 123/72 (89) 98 01/02/17 16:35 73 16 97 Nasal Cannula 2 01/02/17 16:30 97.8 72 16 150/75 (100) 97 Nasal Cannula 2 01/02/17 16:15 74 16 157/76 (103) 96 Nasal Cannula 2 01/02/17 16:00 75 16 165/78 (107) 99 Nasal Cannula 3 01/02/17 15:45 77 16 177/85 (115) 97 Nasal Cannula 3 01/02/17 15:35 98.2 78 16 175/85 (115) 96 Nasal Cannula 3 Labs: Laboratory Tests Test 01/03/17 06:00 White Blood Count 5.7 TH/MM3 (4.0-11.0) Red Blood Count 4.09 MIL/MM3 (4.50-5.90) Hemoglobin 12.7 GM/DL (13.0-17.0) Hematocrit 38.0 % (39.0-51.0) Mean Corpuscular Volume 92.8 FL (80.0-100.0) Mean Corpuscular Hemoglobin 31.0 PG (27.0-34.0) Mean Corpuscular Hemoglobin Concent 33.4 % (32.0-36.0) Red Cell Distribution Width 14.7 % (11.6-17.2) Platelet Count 142 TH/MM3 (150-450) Mean Platelet Volume 8.5 FL (7.0-11.0) Neutrophils (%) (Auto) 60.5 % (16.0-70.0) Lymphocytes (%) (Auto) 30.5 % (9.0-44.0) Monocytes (%) (Auto) 5.3 % (0.0-8.0) Eosinophils (%) (Auto) 3.2 % (0.0-4.0) Basophils (%) (Auto) 0.5 % (0.0-2.0) Neutrophils # (Auto) 3.4 TH/MM3 (1.8-7.7) Lymphocytes # (Auto) 1.7 TH/MM3 (1.0-4.8) Monocytes # (Auto) 0.3 TH/MM3 (0-0.9) Eosinophils # (Auto) 0.2 TH/MM3 (0-0.4) Basophils # (Auto) 0.0 TH/MM3 (0-0.2) CBC Comment DIFF FINAL Differential Comment Blood Urea Nitrogen 7 MG/DL (7-18) Creatinine 0.72 MG/DL (0.60-1.30) Random Glucose 60 MG/DL (74-106) Calcium Level 8.3 MG/DL (8.5-10.1) Sodium Level 137 MEQ/L (136-145) Potassium Level 3.5 MEQ/L (3.5-5.1) Chloride Level 104 MEQ/L (98-107) Carbon Dioxide Level 27.9 MEQ/L (21.0-32.0) Anion Gap 5 MEQ/L (5-15) Estimat Glomerular Filtration Rate 115 ML/MIN (>89) Result Diagram: 01/03/17 0600 01/03/17 06 Albina Reddy MD Jan 03, 2017 13:16
--- NOTE | 2017-01-03 14:01 | EKG ---
Date Performed: 01/02/2017 Time Performed: 12:11:35 PTAGE: 51 years EKG: SINUS BRADYCARDIA BORDERLINE ECG Compared to prior tracing no significant change PREVIOUS TRACING : 09/26/2016 09.17 DOCTOR: Harsh Silva Interpretating Date/Time 01/03/2017 13:59:45
[2017-01-03] MEDS ORDERED: DIATRIZOATE MEGLUM/DIATRIZOATE SOD 9 ML CUP PO ONE (14:15)
[2017-01-03 14:31] LABS: INDIRECT BILIRUBIN 0.8 MG/DL (0.0-0.8); TOTAL BILIRUBIN ADULT 1.6 MG/DL (0.2-1.0)
[2017-01-03] MEDS ORDERED: IOHEXOL 350 MG/ML 10 ML VIAL (for RAD DIAG) IVCONTRAST ONE (18:10)
--- NOTE | 2017-01-03 18:56 | RADRPT ---
EXAM DATE/TIME: 01/03/2017 17:56 [facility] COMPARISON: CTA RUNOFF W 3D RECON, September 24, 2016, 21:05. GI LAB ERCP, September 30, 2016, 13:20. INDICATIONS : Abdomen pain, biliary obstruction. IV CONTRAST: 94 cc Omnipaque 350 (iohexol) IV ORAL CONTRAST: Prescribed oral contrast ingested. RADIATION DOSE: 16.20 CTDIvol (mGy) MEDICAL HISTORY : Diabetes mellitus type 2. SURGICAL HISTORY : Cholecystectomy. Part of lung removed, part of liver removed. ENCOUNTER: Initial ACUITY: 1 day PAIN SCALE: 4/10 LOCATION: Bilateral upper quadrant TECHNIQUE: Volumetric scanning of the abdomen and pelvis was performed. Using automated exposure control and ad justment of the mA and/or kV according to patient size, radiation dose was kept as low as reasonably achievable to obtain optimal diagnostic quality images. DICOM format image data is available electro nically for review and comparison. FINDINGS: Internal biliary stent is noted in good position. There is minimal dilatation of the common bile luiza t. No obstructing calculus is noted within the distal common bile duct. Fatty infiltration of the l iver is noted. Surgical clips are noted adjacent to the right lobe of the liver and within the right lobe of the liver and are stable. There are scattered areas of subcapsular decreased attenuation wi thin the liver consistent with possible areas of focal fatty infiltration. The spleen is mildly prom inent. The pancreas is normal. The kidneys demonstrate no focal mass or hydronephrosis. Adrenal gl ands are unremarkable. No bowel obstruction is noted. Degenerative changes are noted throughout the thoracolumbar spine. The urinary bladder is incompletely distended. There are two tiny air bubbles within the urinary bladder lumen. These may be related to recent instrumentation or possible gas-for lucy organism. Clinical correlation is recommended. No ascites is noted. The abdominal aorta is doug cified but is not aneurysmally dilated. The superior vena cava is normal. There is no paraaortic, ret roperitoneal or mesenteric lymphadenopathy. Fibrotic scarring is noted within the lung bases. CONCLUSION: 1. Internal biliary stent appears to be in good position. There is minimal dilatation of the distal common bile duct without calcified stone identified. 2. Fatty infiltration of the liver with areas of more severe focal fatty infiltration within the subc apsular region of the liver. 3. Mild splenomegaly. 4. Two tiny air bubbles within the urinary bladder lumen. These may be related to recent instrumenta tion or possible gas-forming organism. 5. Degenerative changes throughout the thoracolumbar spine. Andrea Mcmahon MD on January 03, 2017 at 18:19 Board Certified Radiologist. This report was verified electronically.
--- NOTE | 2017-01-03 22:50 | MP ---
cc: SOCRATES MOORE MD DATE OF SURGERY 01/02/17 PREOPERATIVE DIAGNOSIS Gangrene of the right foot, osteomyelitis of the right foot, infection, diabetes mellitus and low grade sepsis. POSTOPERATIVE DIAGNOSIS Gangrene of the right foot, osteomyelitis of the right foot, infection, diabetes mellitus and low grade sepsis. PROCEDURE Urgent right below-knee amputation. SURGEON Haley Moore MD ANESTHESIA General. ESTIMATED BLOOD LOSS 200 mL. PROCEDURE IN DETAIL The patient is prepped and draped usual fashion. The incision is marked with indentations with 0 silks and incision is made anteriorly with 10 blade, carried down laterally and then posterior incision completed. Deepened down with cautery, anterior tibial artery and veins are ligated, divided. Tibia and fibula are now exposed and then the periosteum is elevated with periosteal elevator to about 2 inches above the level of the bone transection. Both bones are transected with ____ saw. The tourniquet was now inflated and then with large amputation knife the posterior flap is created and specimen removed. The trifurcation vessels are ligated with 0-silk [id number] and then the tourniquet is brought down. Tourniquet time is 3 minutes. Stump irrigated with copious amounts of saline, tailored and then closed using 0 Vicryl deep layer fascia to fascia, superficial layer fascia to fascia and skin closed with interrupted 2-0 Prolene. Dressing applied. The patient tolerated the procedure well. Socrates CARTAGENA/ /3:36 PM /10:38 PM
[2017-01-04] VITALS (7 sets, daily range): BP systolic 109–134; BP diastolic 56–73; PULSE 54–76; RESP 16–18; TEMP 96.6–99.8; O2SAT 96–99
[2017-01-04] MEDS: ACETAMINOPHEN/HYDROcodone 325 MG/5 MG TAB PO PRN ×4 (00:46→20:45)
[2017-01-04] MEDS: VANCOMYCIN INJ 1,800 MG in SODIUM CHLORID 0.9% 500 ML INJ 500 ML IV SCH ×3 (00:47→23:16)
[2017-01-04] MEDS: MORPHINE SULFATE 4 MG/ML INJ IV PUSH PRN (01:18)
[2017-01-04] MEDS ORDERED: LACTATED RINGER'S 1000 ML IV PRN (06:00)
[2017-01-04] MEDS ORDERED: POVIDONE IODINE 5% (ANTISEPSIS KIT) 4 APPLICATIONS EACH NARE PRN (06:00)
[2017-01-04] MEDS ORDERED: CHLORHEXIDINE GLUCONATE 2 % 1 PACK (2 CLOTHS) TOPICAL PRN (06:00)
[2017-01-04] MEDS: INSULIN ASPART SUPPLEMENTAL SCALE SQ SCH ×4 (08:00→20:48)
[2017-01-04] MEDS: DOCUSATE SODIUM 50 MG/SENNA 8.6 MG TAB PO SCH ×2 (08:52→20:44)
[2017-01-04] MEDS: FAMOTIDINE 20 MG TAB PO SCH ×2 (08:52→20:44)
[2017-01-04] MEDS: LISINOPRIL 10 MG TAB PO SCH (08:52)
[2017-01-04] MEDS: SODIUM CHLORIDE 0.9% FLUSH 10 ML FLUSH IV FLUSH SCH ×2 (08:53→20:45)
[2017-01-04] MEDS ORDERED: MIDAZOLAM HCL 2 MG/2 ML VIAL ONE (09:56)
[2017-01-04] MEDS ORDERED: FAMOTIDINE 20 MG/2 ML VIAL ONE (09:56)
--- NOTE | 2017-01-04 10:25 | PD.CAR.PN ---
CVT Progress Note Subjective/Hospital Course: 51-year-old noncompliant male with long-standing 2 diabetes mellitus smoking about a pack a day most of his adult life. Patient ended up with the right transmetatarsal amputation and then did not follow up so the whole area got infected during the store when he was walking through dirty water. Patient came to the hospital with infected right foot stump, crawling with maggots in involved with gangrene. I reviewed CTA with runoff that was done in September this year and this is surprisingly clean as far as peripheral vascular disease is concerned, nonetheless patient has small vessel disease in both legs At this point there are no other options available and I agree with Dr. 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 We will remove dressing tomorrow Objective: Vital Signs Date Time Temp Pulse Resp B/P (MAP) Pulse Ox O2 Delivery O2 Flow Rate FiO2 01/04/17 08:00 97.7 54 16 109/63 (78) 97 01/04/17 04:00 96.7 57 18 118/60 (79) 99 01/04/17 00:00 96.6 76 18 123/56 (78) 98 01/03/17 20:00 98.0 73 18 146/70 (95) 98 01/03/17 18:00 98 21 01/03/17 16:00 97.7 58 16 137/57 (83) 98 01/03/17 12:00 96.8 69 16 133/70 (91) 99 Result Diagram: 01/03/17 0601/03/17 06 Albina Reddy MD Jan 04, 2017 10:25
[2017-01-04] MEDS ORDERED: DO NOT ADM ANY ANTICOAGULANT DRUGS PRN (10:43)
[2017-01-04] MEDS ORDERED: PROPOFOL 200 MG/20 ML AMP IV PUSH ONE ×2 (10:43→11:51)
--- NOTE | 2017-01-04 10:56 | RADRPT ---
EXAM DATE/TIME: 01/04/2017 10:23 [facility] COMPARISON: FOOT RIGHT LIMITED (2VWS), January 01, 2017, 17:15. INDICATIONS : Obstruction. FLUORO TIME: 2.12 minutes IMAGE COUNT: 3 CONTRAST: Instilled by Ordering Physician MEDICAL HISTORY : Diabetes mellitus type II. Liver Disease SURGICAL HISTORY : Lobectomy. Part of liver removed ENCOUNTER: Initial ACUITY: 1 day PAIN SCORE: Non-responsive. LOCATION: Right upper quadrant FINDINGS: An ERCP was performed by the ordering physician. The images demonstrate a dilated common bile duct. The proper hepatic ducts appear dilated as well. T he intrahepatic ducts are normal in caliber. The patient is post cholecystectomy. No filling defects are identified. CONCLUSION: ERCP as above. Meliton Jones MD on January 04, 2017 at 10:54 Board Certified Radiologist. This report was verified electronically.
--- NOTE | 2017-01-04 11:06 | PD.PROCEDR ---
GI Procedure REFERRING PHYSICIAN Dr. Wellington PROCEDURE PERFORMED ERCP with stent removal and balloon extraction INDICATION FOR PROCEDURE History of choledocholithiasis with known stent and CBD and elevated liver function tests PROCEDURE: The procedure, risks and benefits were discussed with Mr. Peter and informed consent was obtained. Anesthesia sedated him with Diprivan. He was placed in the left lateral decubitus position. ERCP: Patient was placed in a prone position. The Pentax videoscope was introduced through the oropharynx and advanced to the second portion of the duodenum where the ampula was identified. FINDINGS: Ampulla was noted with stent protruding this was removed using snare then the scope was repositioned we were able to obtain easy cannulation of the common bile duct the ampulla had a prior sphincterotomy the bile duct did appear to be mildly dilated with a gradual tapering towards the end using a 12 mm balloon we were able to obtain an obstructive cholangiogram and to sweep clean the bile duct debris was noted but no obvious stones post balloon sweeps and the procedure was terminated ESTIMATED BLOOD LOSS: None SPECIMENS REMOVED: None COMPLICATIONS: None IMPRESSION: History of choledocholithiasis Elevated liver function tests possibly related to osteomyelitis and antibiotic use but other etiologies need to be ruled out PLAN: Supportive care Workup for elevated liver function test Pablo Luo MD Jan 04, 2017 11:06
--- NOTE | 2017-01-04 13:26 | HHI.PR ---
Subjective Remarks For BKA and ERCP was stent removal Patient has no complaints. Denied any pain. Denies any nausea or vomiting. He remains afebrile. Objective Vitals Vital Signs Date Time Temp Pulse Resp B/P (MAP) Pulse Ox O2 Delivery O2 Flow Rate FiO2 01/04/17 12:00 96.8 64 17 134/73 (93) 98 01/04/17 11:38 96 21 01/04/17 10:58 71 16 107/63 (78) 97 01/04/17 10:53 76 16 102/65 (77) 100 01/04/17 10:48 97.9 74 16 120/67 (84) 97 01/04/17 08:00 97.7 54 16 109/63 (78) 97 01/04/17 04:00 96.7 57 18 118/60 (79) 99 01/04/17 00:00 96.6 76 18 123/56 (78) 98 01/03/17 20:00 98.0 73 18 146/70 (95) 98 01/03/17 18:00 98 21 01/03/17 16:00 97.7 58 16 137/57 (83) 98 I/O 01/03/17 01/03/17 01/03/17 01/04/17 01/04/17 01/04/17 07:00 15:00 23:00 07:00 15:00 23:00 Intake Total 518 ml 840 ml 518 ml Output Total 450 ml 700 ml 1000 ml Balance 68 ml 140 ml -482 ml Intake Oral 840 ml IV Total 518 ml 518 ml Output Urine Total 450 ml 700 ml 1000 ml # Bowel Movements 0 Result Diagram: 01/03/17 0601/03/17 0600 Objective Remarks GENERAL: Middle-aged white male in no acute distress. CARDIOVASCULAR: Regular rate and rhythm. No obvious murmurs to auscultation. No chest tenderness to palpation. RESPIRATORY: No obvious rhonchi or wheezing. Clear to auscultation. Breath sounds equal bilaterally. GASTROINTESTINAL: Abdomen soft, non-tender, nondistended. BS normal. MUSCULOSKELETAL: Extremities without clubbing, cyanosis, or edema. No obvious deformities. Right BKA. NEUROLOGICAL: Awake, alert and oriented x4. No focal neurologic deficits. Moving both upper and lower extremities spontaneously. Medications and IVs Current Medications Vancomycin HCl 1350 mg/Sodium Chloride 513.5 ml @ 250 mls/hr ONCE ONCE IV Last administered on 01/01/17 17:38; Start 01/01/17 at 17:00; Stop 01/01/17 at 19:03; Status DC Ethyl Chloride (Ethyl Chloride [place]) 1 applic ONCE ONCE TOPICAL Last administered on 01/01/17 19:33; Start 01/01/17 at 18:15; Stop 01/01/17 at 18:16 ; Status DC Morphine Sulfate (Morphine Inj) 4 mg ONCE ONCE IV PUSH Last administered on 19:34; Start 01/01/17 at 18:30; Stop 01/01/17 at 18:31; Status DC Sodium Chloride (NS Flush) 2 ml UNSCH PRN IV FLUSH FLUSH AFTER USING IV ACCESS ; Start 01/01/17 at 18:30 Sodium Chloride (NS Flush) 2 ml BID IV FLUSH Last administered on 01/04/17 08: 53; Start 01/01/17 at 21:00 Acetaminophen (Tylenol) 650 mg Q4H PRN PO TEMP > 100.4 Last administered on 00:35; Start 01/01/17 at 18:30 Ondansetron HCl (Zofran Inj) 4 mg Q6H PRN IVP NAUSEA OR VOMITING; Start at 18:30 Enoxaparin Sodium (Lovenox Inj) 40 mg Q24H SQ Last administered on 01/01/17 21 :22; Start 01/01/17 at 20:00; Stop 01/02/17 at 20:00; Status DC Naloxone HCl (Narcan Inj) 0.4 mg UNSCH PRN IV PUSH SEE LABEL COMMENTS; Start at 18:30 Senna/Docusate Sodium (Chey-Colace) 1 tab BID PO Last administered on 08:52; Start 01/01/17 at 21:00 Magnesium Hydroxide (Milk Of Magnesia Liq) 30 ml Q12H PRN PO MILD - MODERATE CONSTIPATION; Start 01/01/17 at 18:30 Sennosides (Senokot) 17.2 mg Q12H PRN PO MODERATE - SEVERE CONSTIPATION; Start 01/01/17 at 18:30 Bisacodyl (Dulcolax Supp) 10 mg DAILY PRN RECTAL SEVERE CONSITIPATION; Start at 18:30 Lactulose (Lactulose Liq) 30 ml DAILY PRN PO SEVERE CONSITIPATION; Start at 18:30 Pharmacy Profile Note 0 ml @ 0 mls/hr UNSCH OTHER ; Start 01/01/17 at 18:30 Vancomycin HCl 1000 mg/Sodium Chloride 250 ml @ 250 mls/hr Q12H IV ; Start at 18:30; Stop 01/01/17 at 18:32; Status DC Famotidine (Pepcid) 20 mg BID PO Last administered on 01/04/17 08:52; Start at 21:00 Lisinopril (Prinivil) 10 mg DAILY PO Last administered on 01/04/17 08:52; Start 01/02/17 at 09:00 Dextrose (D50w (Vial) Inj) 50 ml UNSCH PRN IV HYPOGLYCEMIA-SEE COMMENTS; Start 01/01/17 at 18:45 Glucagon (Glucagon Inj) 1 mg UNSCH PRN OTHER HYPOGLYCEMIA-SEE COMMENTS; Start 01/01/17 at 18:45 Insulin Aspart (NovoLOG SUPPLEMENTAL SCALE) 1 ACHS SLIDING SCALE SQ ; Start at 21:00 Vancomycin HCl 1800 mg/Sodium Chloride 518 ml @ 250 mls/hr Q12H IV Last administered on 01/04/17 13:14; Start 01/02/17 at 00:00 Miscellaneous Information SPECIFIC LAB TO BE MECHE... ONCE ONCE .XX ; Start 01/03 at 11:45; Stop 01/03/17 at 11:46; Status DC Morphine Sulfate (Morphine Inj) 2 mg Q3H PRN IV PUSH SEE LABEL COMMENTS Last administered on 01/04/17 01:18; Start 01/02/17 at 12:00; Stop 01/04/17 at 12:00 ; Status DC Acetaminophen/ Hydrocodone Bitart ([place] 5-325 Mg) 1 tab Q4H PRN PO pain 1-7 Last administered on 01/03/17 17:00; Start 01/02/17 at 12:00 Acetaminophen/ Hydrocodone Bitart ([place] 5-325 Mg) 2 tab Q4H PRN PO PAIN SCALE 8-10 Last administered on 01/04/17 05:32; Start 01/02/17 at 12:00 Famotidine (Pepcid Inj) 20 mg STK-MED ONCE .ROUTE ; Start 01/02/17 at 13:36; Stop 01/02/17 at 13:37; Status DC Meperidine HCl (*DEMEROL INJ PERIprocedural ONLY) 25 mg STK-MED ONCE .ROUTE Last administered on 01/02/17 15:40; Start 01/02/17 at 15:40; Stop 01/02/17 at 15:41; Status DC Hydromorphone HCl (*DILAUDID PF INJ PERIprocedural ONLY) 1 mg STK-MED ONCE .ROUTE Last administered on 01/02/17 15:47; Start 01/02/17 at 15:47; Stop at 15:48; Status DC Miscellaneous Information ALL NURSING DEPARTME... UNSCH PRN .XX SEE LABEL COMMENTS; Start 01/02/17 at 15:35; Stop 01/03/17 at 15:34; Status DC Hydromorphone HCl (*DILAUDID PF INJ PERIprocedural ONLY) 1 mg STK-MED ONCE .ROUTE Last administered on 01/02/17 16:16; Start 01/02/17 at 16:16; Stop at 16:17; Status DC Pneumococcal Polyvalent Vaccine (Pneumovax-23 Inj) 25 mcg ONCE ONCE IM Last administered on 01/03/17 20:44; Start 01/03/17 at 10:00; Stop 01/03/17 at 10:01 ; Status DC Enoxaparin Sodium (Lovenox Inj) 40 mg DAILY SQ Last administered on 01/03/17 09:50; Start 01/03/17 at 09:00; Status Future Hold Diphenhydramine HCl (Benadryl Inj) 25 mg ONCE ONCE IV PUSH Last administered on 01/02/17 22:21; Start 01/02/17 at 22:30; Stop 01/02/17 at 22:31; Status DC Diatrizoate Meglum/ Diatrizoate Sod ( Gastroview Liq) 18 ml ONCE ONCE PO Last administered on 01/03/17 14:15; Start 01/03/17 at 14:15; Stop 01/03/17 at 14:16; Status DC Iohexol (Omnipaque 350 Inj) 94 ml STK-MED ONCE IVCONTRAST Last administered on 01/03/17 18:10; Start 01/03/17 at 18:10; Stop 01/03/17 at 18:11; Status DC Lactated Ringer's 1,000 ml @ 30 mls/hr Q24H PRN IV SEE LABEL COMMENTS; Start at 06:00; Stop 01/07/17 at 05:59 Povidone Iodine (Betadine 5% Antisepsis Kit) 1 applic HEAT AND FROST INSULATOR PRN EACH NARE SEE LABEL COMMENTS; Start 01/04/17 at 06:00; Stop 01/07/17 at 05:59 Chlorhexidine Gluconate (Chlorhexidine 2% Cloth) 3 pack HEAT AND FROST INSULATOR PRN TOPICAL SEE LABEL COMMENTS; Start 01/04/17 at 06:00; Stop 01/07/17 at 05:59 Midazolam HCl (Versed Inj) 2 mg STK-MED ONCE .ROUTE Last administered on 10:00; Start 01/04/17 at 09:56; Stop 01/04/17 at 09:57; Status DC Famotidine (Pepcid Inj) 20 mg STK-MED ONCE .ROUTE Last administered on 09:56; Start 01/04/17 at 09:56; Stop 01/04/17 at 09:57; Status DC Miscellaneous Information SPECIFIC LAB TO BE DRAWN:VANCOMYCIN TROUGH DATE TO... ONCE ONCE .XX ; Start 01/05/17 at 11:45; Stop 01/05/17 at 11:46 Miscellaneous Information ALL NURSING DEPARTME... UNSCH PRN .XX SEE LABEL COMMENTS; Start 01/04/17 at 10:43; Stop 01/05/17 at 10:42 Propofol (Diprivan 200 Mg/20 ml Inj) 320 mg STK-MED ONCE IV PUSH ; Start at 11:51; Stop 01/04/17 at 11:52; Status DC A/P Problem List: (1) Osteomyelitis of right foot ICD Code: M86.9 - Osteomyelitis, unspecified Status: Resolved (2) Non-compliance ICD Code: Z91.19 - Patient's noncompliance with other medical treatment and regimen Status: Acute (3) HTN (hypertension) ICD Code: I10 - Essential (primary) hypertension Status: Chronic (4) DM (diabetes mellitus) ICD Code: E11.9 - Type 2 diabetes mellitus without complications Assessment and Plan Right Foot Osteomyelitis: -chronic right foot infection secondary to noncompliance. Foot X-ray w/ previous midfoot amputation and possible early bone destruction of fifth metatarsal remnant. -Status post BKA. HTN: Controlled. -Continue home medication. eye pain secondary to ingrown hair -Pending pending manager biostatistics. -Patient refused any irrigation and wants to tweezer so he can remove the hair himself. Educated that I can not give him tweezer because that may cause more injury to his eye. hx Choledocholithiasis status post biliary stent -Status post ERCP and stent removal today. Management per GI. Elevated LFTs, asymptomatic. -Be worked up by GI. Management per GI. T2DM: - Sliding scale w/ Accu-Cheks. Hold Metformin for now. DVT Prophylaxis: LovenoGertrudis Hoffmann MD Jan 04, 2017 13:26
[2017-01-04 15:24] LABS: FERRITIN 677 NG/ML (26-388)
[2017-01-05] VITALS: BP 133/78; PULSE 68; RESP 18; TEMP 97.7; O2SAT 94
[2017-01-05 05:33] LABS: HEMATOCRIT 39.1 % (39.0-51.0); MEAN CELL VOLUME 91.9 FL (80.0-100.0); MEAN CORPUSCULAR HEMOGLOBIN 31.3 PG (27.0-34.0); MEAN CORPUSCULAR HGB CONC 34.1 % (32.0-36.0); PLATELET COUNT 138 TH/MM3 (150-450); RED BLOOD COUNT 4.25 MIL/MM3 (4.50-5.90); RED CELL DISTRIBUTION WIDTH 14.6 % (11.6-17.2); REVIEW FLAG FINAL
[2017-01-05 05:56] LABS: ALT (GPT) 370 U/L (12-78); ANION GAP 7 MEQ/L (5-15); AST (GOT) 222 U/L (15-37); BICARBONATE 26.9 MEQ/L (21.0-32.0); BLOOD UREA NITROGEN 5 MG/DL (7-18); CHLORIDE 101 MEQ/L (98-107); GLOMERULAR FILTRATION RATE 105 ML/MIN (>89); POTASSIUM 4.2 MEQ/L (3.5-5.1); SODIUM (NA) 135 MEQ/L (136-145)
[2017-01-05 05:59] LABS: ALKALINE PHOSPHATASE 256 U/L (45-117); TOTAL BILIRUBIN ADULT 1.2 MG/DL (0.2-1.0)
[2017-01-05] MEDS: ACETAMINOPHEN/HYDROcodone 325 MG/5 MG TAB PO PRN ×4 (07:03→20:50)
[2017-01-05 08:00] VITALS: BP 123/61; PULSE 70; RESP 17; TEMP 99.1; O2SAT 98
[2017-01-05] MEDS: INSULIN ASPART SUPPLEMENTAL SCALE SQ SCH ×4 (08:00→20:59)
[2017-01-05] MEDS: LISINOPRIL 10 MG TAB PO SCH (08:23)
[2017-01-05] MEDS: FAMOTIDINE 20 MG TAB PO SCH ×2 (08:23→20:50)
[2017-01-05] MEDS: DOCUSATE SODIUM 50 MG/SENNA 8.6 MG TAB PO SCH ×2 (08:23→20:50)
[2017-01-05] MEDS: SODIUM CHLORIDE 0.9% FLUSH 10 ML FLUSH IV FLUSH SCH ×2 (09:00→21:00)
[2017-01-05] MEDS ORDERED: PHARMACY ORDERED LAB ONE (11:45)
[2017-01-05 12:00] VITALS: BP 116/64; PULSE 80; RESP 18; TEMP 97; O2SAT 100
--- NOTE | 2017-01-05 12:17 | HHI.GIFU ---
Subjective Remarks Resting in bed. Tolerating diet. No n/v. No abdominal pain. (Jill Mallory) Objective Vitals I&O Vital Signs Date Time Temp Pulse Resp B/P (MAP) Pulse Ox O2 Delivery O2 Flow Rate FiO2 01/05/17 08:00 99.1 70 17 123/61 (81) 98 01/05/17 00:00 97.7 68 18 133/78 (96) 94 01/04/17 20:00 99.8 71 18 132/60 (84) 97 01/04/17 16:00 97.8 65 16 130/73 (92) 99 01/04/17 12:00 96.8 64 17 134/73 (93) 98 I/O 01/04/17 01/04/17 01/04/17 01/05/17 01/05/17 01/05/17 07:00 15:00 23:00 07:00 15:00 23:00 Intake Total 518 ml 300 ml 1200 ml Output Total 1000 ml 800 ml Balance -482 ml 300 ml 400 ml Intake Oral 1200 ml IV Total 518 ml Other 300 ml Output Urine Total 1000 ml 800 ml # Voids 2 # Bowel Movements 0 Laboratory Laboratory Tests Test 01/04/17 14:07 01/05/17 04:42 Iron Level 42 Ferritin 677 White Blood Count 6.0 Red Blood Count 4.25 Hemoglobin 13.3 Hematocrit 39.1 Mean Corpuscular Volume 91.9 Mean Corpuscular Hemoglobin 31.3 Mean Corpuscular Hemoglobin Concent 34.1 Red Cell Distribution Width 14.6 Platelet Count 138 Mean Platelet Volume 8.6 Blood Urea Nitrogen 5 Creatinine 0.78 Random Glucose 83 Total Protein 7.3 Albumin 2.9 Calcium Level 8.6 Alkaline Phosphatase 256 Aspartate Amino Transf (AST/SGOT) 222 Alanine Aminotransferase (ALT/SGPT) 370 Total Bilirubin 1.2 Sodium Level 135 Potassium Level 4.2 Chloride Level 101 Carbon Dioxide Level 26.9 Anion Gap 7 Estimat Glomerular Filtration Rate 105 Imaging Last Impressions GI Procedure 01/04/17 0000 Signed Impressions: Service Date/Time: Wednesday, January 04, 2017 10:23 - CONCLUSION: ERCP as above. Meliton Jones MD Abdomen/Pelvis CT 01/03/17 0000 Signed Impressions: Service Date/Time: Tuesday, January 03, 2017 17:56 - CONCLUSION: 1. Internal biliary stent appears to be in good position. There is minimal dilatation of the distal common bile duct without calcified stone identified. 2. Fatty infiltration of the liver with areas of more severe focal fatty infiltration within the subcapsular region of the liver. 3. Mild splenomegaly. 4. Two tiny air bubbles within the urinary bladder lumen. These may be related to recent instrumentation or possible gas-forming organism. 5. Degenerative changes throughout the thoracolumbar spine. Andrea Mcmahon MD Foot X-Ray 01/01/17 0000 Signed Impressions: Service Date/Time: Sunday, January 01, 2017 17:15 - CONCLUSION: Previous midfoot amputation and with possible early bone destruction distally of the fifth metatarsal remnant. Bruce Espitia MD Physical Exam HEENT: Normocephalic; atraumatic; no jaundice. CHEST: CTA CARDIAC: RRR. ABDOMEN: Soft, nondistended, nontender; no hepatosplenomegaly; bowel sounds are present in all four quadrants. EXTREMITIES: Right BKA missy wrap drsg d/i SKIN: Normal; no rash; no jaundice. 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 (Jill MalloryP) Assessment and Plan Plan ASSESSMENT: - Hx biliary obstruction, S/P ERCP with stent placement. Pt was seen while hospitalized in September for elevated LFTs. Liver Ultrasound (09/29/16)-----> 1. Echogenic focus within the common bile duct measuring 12 mm suggestive of choledocholithiasis. Correlation with alkaline phosphatase and bilirubin levels is suggested to rule out biliary obstruction. 2. Hepatosplenomegaly. S/P ERCP with sphincterotomy, stent placement ()---> Questionable filling defect at the distal cbd, multiple images obtained, 7 mm sphincterotomy and balloon sweeps x 2 11.5 mm balloon. No clear stones extruded but duct did not drain. 8.5 x 9cm stent placed. Good drainage seen at the end of the procedure. The plan was for a repeat ERCP with stent exchange versus removal in 2 months. He states that he has not been able to follow up secondary to insurance issues. He is currently asymptomatic. He is wanting his stent removed. CT Scan abdomen and pelvis (01/03/17)----> Internal biliary stent appears to be in good position. There is minimal dilatation of the distal common bile duct withotu calcified stone identified. Fatty infiltration of the liver with areas of more severe focal fatty infiltration within the subapsular region of the liver. Mild splenomegaly. Two tiny air bubbles within the urinary bladder lumen. These may be related to recent instrumentation or possible gas-forming organism. Degenerative changes throughout the thoracolumbar spine. S/P ERCP (01/04/17)---> History of choledocholithiasis, Elevated liver function tests possibly related to osteomyelitis and antibiotic use but other etiologies need to be ruled out. LFTs improved, still elevated , but suspect other etiology for elevated LFTs. - Elevated LFTs. Possibly related to OM, abx use, abx use. Hepatitis profile pending. SHELBY pending. AMA pending. ASMA pending. Ceruloplasmin pending. Ferritin 677, Iron 42. T. Bili 1.2, AST 222, ALT 370 , Alk Phosph 256. - Right foot osteomyelitis, Cx PSAE, Providencia Rettgeri, Gr B beta strep. S/ P right bka. Vanco. - Anemia, post op, mild. 13.3/39.1. - DM, HTN per attending. PLAN: - [facility] - Await hepatitis - Await SHELBY, ASMA, AMA - Await ceruloplasmin - Monitor LFTs - Abx per attending - Further recommendations to follow based on results of above - PT seen and examined by Dr. Luo and myself and this note is written on his behalf (Jill Mallory) Physician Comments Page seen and examined Agree with above Continue with current supportive care Monitor labs Liver workup in progress so far negative hepatitis panel (Pablo Luo MD) Jill Mallory Jan 05, 2017 12:17 Pablo Luo MD Jan 05, 2017 15:09
[2017-01-05] MEDS: VANCOMYCIN INJ 1,800 MG in SODIUM CHLORID 0.9% 500 ML INJ 500 ML IV SCH (12:35)
--- NOTE | 2017-01-05 14:02 | HHI.PR ---
Subjective Remarks Pt states pain is controlled at this time. Did have pain in lower extremity this AM. eating well, No chest pain/SOB/N/V Objective Vitals Vital Signs Date Time Temp Pulse Resp B/P (MAP) Pulse Ox O2 Delivery O2 Flow Rate FiO2 01/05/17 12:00 97.0 80 18 116/64 (81) 100 01/05/17 08:00 99.1 70 17 123/61 (81) 98 01/05/17 00:00 97.7 68 18 133/78 (96) 94 01/04/17 20:00 99.8 71 18 132/60 (84) 97 01/04/17 16:00 97.8 65 16 130/73 (92) 99 I/O 01/04/17 01/04/17 01/04/17 01/05/17 01/05/17 01/05/17 07:00 15:00 23:00 07:00 15:00 23:00 Intake Total 518 ml 300 ml 1200 ml Output Total 1000 ml 800 ml Balance -482 ml 300 ml 400 ml Intake Oral 1200 ml IV Total 518 ml Other 300 ml Output Urine Total 1000 ml 800 ml # Voids 2 # Bowel Movements 0 Result Diagram: 01/05/17 0442 01/05/17 0442 Imaging Last Impressions GI Procedure 01/04/17 0000 Signed Impressions: Service Date/Time: Wednesday, January 04, 2017 10:23 - CONCLUSION: ERCP as above. Meliton Jones MD Abdomen/Pelvis CT 01/03/17 0000 Signed Impressions: Service Date/Time: Tuesday, January 03, 2017 17:56 - CONCLUSION: 1. Internal biliary stent appears to be in good position. There is minimal dilatation of the distal common bile duct without calcified stone identified. 2. Fatty infiltration of the liver with areas of more severe focal fatty infiltration within the subcapsular region of the liver. 3. Mild splenomegaly. 4. Two tiny air bubbles within the urinary bladder lumen. These may be related to recent instrumentation or possible gas-forming organism. 5. Degenerative changes throughout the thoracolumbar spine. Andrea Mcmahon MD Foot X-Ray 01/01/17 0000 Signed Impressions: Service Date/Time: Sunday, January 01, 2017 17:15 - CONCLUSION: Previous midfoot amputation and with possible early bone destruction distally of the fifth metatarsal remnant. Bruce Espitia MD Objective Remarks GENERAL: Middle-aged white male in no acute distress. CARDIOVASCULAR: Regular rate and rhythm. No obvious murmurs to auscultation. RESPIRATORY: No wheezing. Clear to auscultation. Breath sounds equal bilaterally. GASTROINTESTINAL: Abdomen soft, non-tender, nondistended. BS normal. MUSCULOSKELETAL: Right BKA, dressing d/c/i. NEUROLOGICAL: Awake, alert and oriented x4. No focal neurologic deficits. Moving both upper and lower extremities spontaneously. A/P Problem List: (1) Osteomyelitis of right foot ICD Code: M86.9 - Osteomyelitis, unspecified Status: Resolved (2) Non-compliance ICD Code: Z91.19 - Patient's noncompliance with other medical treatment and regimen Status: Acute (3) HTN (hypertension) ICD Code: I10 - Essential (primary) hypertension Status: Chronic (4) DM (diabetes mellitus) ICD Code: E11.9 - Type 2 diabetes mellitus without complications Assessment and Plan Right Foot Osteomyelitis: -chronic right foot infection secondary to noncompliance. Foot X-ray w/ previous midfoot amputation and possible early bone destruction of fifth metatarsal remnant . -Status post BKA on 01/02/17. on IV vanco HTN: Controlled. -Continue home medication. 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 -Patient refused any irrigation and wanted a tweezer so he could remove the hair himself. Pt was Educated that by previous hospitalist that she couldn't give him a tweezer because that may cause more injury to his eye. -Pt didn't complain of this to me today. hx Choledocholithiasis status post biliary stent -Status post ERCP and stent removal 01/04/17. Management per GI. Elevated LFTs, asymptomatic. -Be worked up by GI. Management per GI. T2DM: - Sliding scale w/ Accu-Cheks. Hold Metformin for now. DVT Prophylaxis: Lovenox Discharge Planning awaiting recs from GI. also awaiting clearance from sx. Bruna Washburn MD Jan 05, 2017 14:02
[2017-01-05 16:00] VITALS: BP 109/59; PULSE 62; RESP 16; TEMP 97.5; O2SAT 98
[2017-01-05 20:00] VITALS: BP 115/58; PULSE 66; RESP 20; TEMP 97.9; O2SAT 99
[2017-01-05] MEDS ORDERED: VANCOMYCIN INJ 1,500 MG in SODIUM CHLORID 0.9% 500 ML INJ 500 ML IV SCH (20:00)
[2017-01-05] MEDS: ZOLPIDEM TARTRATE 5 MG TAB PO PRN (23:30)
[2017-01-06] VITALS: BP 108/58; PULSE 62; RESP 18; TEMP 98.4; O2SAT 99
[2017-01-06 07:20] LABS: BASOPHIL % 0.7 % (0.0-2.0); EOSINOPHIL # 0.2 TH/MM3 (0-0.4); EOSINOPHIL % 4.6 % (0.0-4.0); HEMATOCRIT 37.7 % (39.0-51.0); HEMO FLAGS DIFF FINAL; LYMPH % 25.1 % (9.0-44.0); LYMPHOCYTE # 1.3 TH/MM3 (1.0-4.8); MEAN CELL VOLUME 92.1 FL (80.0-100.0); MEAN CORPUSCULAR HEMOGLOBIN 31.5 PG (27.0-34.0); MEAN CORPUSCULAR HGB CONC 34.2 % (32.0-36.0); MONO % 11.5 % (0.0-8.0); NEUT % 58.1 % (16.0-70.0); PLATELET COUNT 132 TH/MM3 (150-450); RED BLOOD COUNT 4.09 MIL/MM3 (4.50-5.90); RED CELL DISTRIBUTION WIDTH 14.5 % (11.6-17.2); WHITE BLOOD COUNT 5.2 TH/MM3 (4.0-11.0)
[2017-01-06 07:46] LABS: ANION GAP 7 MEQ/L (5-15); AST (GOT) 59 U/L (15-37); BICARBONATE 26.5 MEQ/L (21.0-32.0); BLOOD UREA NITROGEN 6 MG/DL (7-18); CHLORIDE 100 MEQ/L (98-107); GLOMERULAR FILTRATION RATE 125 ML/MIN (>89); POTASSIUM 4.1 MEQ/L (3.5-5.1); SODIUM (NA) 133 MEQ/L (136-145)
[2017-01-06 07:47] LABS: ALT (GPT) 207 U/L (12-78)
[2017-01-06 07:49] LABS: ALKALINE PHOSPHATASE 211 U/L (45-117); TOTAL BILIRUBIN ADULT 0.7 MG/DL (0.2-1.0)
[2017-01-06 08:00] VITALS: BP 122/66; PULSE 62; RESP 16; TEMP 97.3; O2SAT 92
[2017-01-06] MEDS: INSULIN ASPART SUPPLEMENTAL SCALE SQ SCH ×4 (08:00→20:49)
[2017-01-06] MEDS: DOCUSATE SODIUM 50 MG/SENNA 8.6 MG TAB PO SCH ×2 (08:12→20:49)
[2017-01-06] MEDS: FAMOTIDINE 20 MG TAB PO SCH ×2 (08:12→20:49)
[2017-01-06] MEDS: SODIUM CHLORIDE 0.9% FLUSH 10 ML FLUSH IV FLUSH SCH ×2 (08:12→20:49)
[2017-01-06] MEDS: LISINOPRIL 10 MG TAB PO SCH (08:12)
[2017-01-06] MEDS ORDERED: PHARMACY ORDERED LAB ONE (11:45)
[2017-01-06] MEDS: ACETAMINOPHEN/HYDROcodone 325 MG/5 MG TAB PO PRN (11:56)
[2017-01-06 12:00] VITALS: BP 129/84; PULSE 65; RESP 16; TEMP 97.4; O2SAT 98
--- NOTE | 2017-01-06 13:12 | HHI.GIFU ---
Subjective Remarks Resting in bed. No n/v. No abdominal pain. Tolerating diet. (Jill Mallory) Objective Vitals I&O Vital Signs Date Time Temp Pulse Resp B/P (MAP) Pulse Ox O2 Delivery O2 Flow Rate FiO2 01/06/17 08:00 97.3 62 16 122/66 (84) 92 01/06/17 00:00 98.4 62 18 108/58 (75) 99 01/05/17 21:40 18 01/05/17 20:00 97.9 66 20 115/58 (77) 99 01/05/17 16:00 97.5 62 16 109/59 (76) 98 I/O 01/05/17 01/05/17 01/05/17 01/06/17 01/06/17 01/06/17 07:00 15:00 23:00 07:00 15:00 23:00 Intake Total 518 ml 1640 ml 320 ml Balance 518 ml 1640 ml 320 ml Intake Oral 1640 ml 320 ml IV Total 518 ml # Voids 2 4 2 # Bowel Movements 1 0 Laboratory Laboratory Tests Test 01/06/17 06:30 White Blood Count 5.2 Red Blood Count 4.09 Hemoglobin 12.9 Hematocrit 37.7 Mean Corpuscular Volume 92.1 Mean Corpuscular Hemoglobin 31.5 Mean Corpuscular Hemoglobin Concent 34.2 Red Cell Distribution Width 14.5 Platelet Count 132 Mean Platelet Volume 8.7 Neutrophils (%) (Auto) 58.1 Lymphocytes (%) (Auto) 25.1 Monocytes (%) (Auto) 11.5 Eosinophils (%) (Auto) 4.6 Basophils (%) (Auto) 0.7 Neutrophils # (Auto) 3.0 Lymphocytes # (Auto) 1.3 Monocytes # (Auto) 0.6 Eosinophils # (Auto) 0.2 Basophils # (Auto) 0.0 CBC Comment DIFF FINAL Differential Comment Blood Urea Nitrogen 6 Creatinine 0.67 Random Glucose 120 Total Protein 7.0 Albumin 2.9 Calcium Level 8.8 Alkaline Phosphatase 211 Aspartate Amino Transf (AST/SGOT) 59 Alanine Aminotransferase (ALT/SGPT) 207 Total Bilirubin 0.7 Sodium Level 133 Potassium Level 4.1 Chloride Level 100 Carbon Dioxide Level 26.5 Anion Gap 7 Estimat Glomerular Filtration Rate 125 Imaging Last Impressions GI Procedure 01/04/17 0000 Signed Impressions: Service Date/Time: Wednesday, January 04, 2017 10:23 - CONCLUSION: ERCP as above. Meliton Jones MD Abdomen/Pelvis CT 01/03/17 0000 Signed Impressions: Service Date/Time: Tuesday, January 03, 2017 17:56 - CONCLUSION: 1. Internal biliary stent appears to be in good position. There is minimal dilatation of the distal common bile duct without calcified stone identified. 2. Fatty infiltration of the liver with areas of more severe focal fatty infiltration within the subcapsular region of the liver. 3. Mild splenomegaly. 4. Two tiny air bubbles within the urinary bladder lumen. These may be related to recent instrumentation or possible gas-forming organism. 5. Degenerative changes throughout the thoracolumbar spine. Andrea Mcmahon MD Foot X-Ray 01/01/17 0000 Signed Impressions: Service Date/Time: Sunday, January 01, 2017 17:15 - CONCLUSION: Previous midfoot amputation and with possible early bone destruction distally of the fifth metatarsal remnant. Bruce Espitia MD Physical Exam HEENT: Normocephalic; atraumatic; no jaundice. CHEST: CTA CARDIAC: RRR. ABDOMEN: Soft, nondistended, nontender; no hepatosplenomegaly; bowel sounds are present in all four quadrants. EXTREMITIES: Right BKA missy wrap drsg d/i SKIN: Normal; no rash; no jaundice. GLASS GLAZIER: No focal deficits; alert and oriented times three. (Jill MalloryP) Assessment and Plan Plan ASSESSMENT: - Hx biliary obstruction, S/P ERCP with stent placement. Pt was seen while hospitalized in September for elevated LFTs. Liver Ultrasound (09/29/16)-----> 1. Echogenic focus within the common bile duct measuring 12 mm suggestive of choledocholithiasis. Correlation with alkaline phosphatase and bilirubin levels is suggested to rule out biliary obstruction. 2. Hepatosplenomegaly. S/P ERCP with sphincterotomy, stent placement ()---> Questionable filling defect at the distal cbd, multiple images obtained, 7 mm sphincterotomy and balloon sweeps x 2 11.5 mm balloon. No clear stones extruded but duct did not drain. 8.5 x 9cm stent placed. Good drainage seen at the end of the procedure. The plan was for a repeat ERCP with stent exchange versus removal in 2 months. He states that he has not been able to follow up secondary to insurance issues. He is currently asymptomatic. He is wanting his stent removed. CT Scan abdomen and pelvis (01/03/17)----> Internal biliary stent appears to be in good position. There is minimal dilatation of the distal common bile duct without calcified stone identified. Fatty infiltration of the liver with areas of more severe focal fatty infiltration within the subcapsular region of the liver. Mild splenomegaly. Two tiny air bubbles within the urinary bladder lumen. These may be related to recent instrumentation or possible gas-forming organism. Degenerative changes throughout the thoracolumbar spine. S/P ERCP (01/04/17)---> History of choledocholithiasis, Elevated liver function tests possibly related to osteomyelitis and antibiotic use but other etiologies need to be ruled out. LFTs improving. - Elevated LFTs. Possibly related to OM, abx use, abx use. Hepatitis profile negative. SHELBY pending. AMA pending. ASMA pending. Ceruloplasmin pending. Ferritin 677, Iron 42. T. Bili 0.7, AST 59, ALT 207, Alk Phosph 211. - Right foot osteomyelitis, Cx PSAE, Providencia Rettgeri, Gr B beta strep. S/ P right bka. Vanco. - Anemia, post op, mild. 12.9/37.7. - DM, HTN per attending. PLAN: - [facility] - Await SHELBY, ASMA, AMA - Monitor LFTs - Abx per attending - Further recommendations to follow based on results of above - PT seen and examined by Dr. Luo and myself and this note is written on his behalf (Jill Mallory) Physician Comments Patient seen and examined Agree with above Continue with current supportive care Monitor labs LFTs seem to be improving suggesting that this probably was secondary to the infection I would recommend that patient follow-up with GI post discharge Not much to add at this point therefore we will sign off (Pablo Luo MD) Jill Mallory Jan 06, 2017 13:12 Pablo Luo MD Jan 06, 2017 18:47
[2017-01-06 13:38] LABS: ANA SCREEN NEG (NEG)
--- NOTE | 2017-01-06 15:13 | PD.CAR.PN ---
CVT Progress Note Subjective/Hospital Course: 51-year-old noncompliant male with long-standing 2 diabetes mellitus smoking about a pack a day most of his adult life. Patient ended up with the right transmetatarsal amputation and then did not follow up so the whole area got infected during the store when he was walking through dirty water. Patient came to the hospital with infected right foot stump, crawling with maggots in involved with gangrene. I reviewed CTA with runoff that was done in September this year and this is surprisingly clean as far as peripheral vascular disease is concerned, nonetheless patient has small vessel disease in both legs At this point there are no other options available and I agree with Dr. 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 We will remove dressing tomorrow 01/06/17 Stump is clean and dry no drainage is noted Patient hit the stump against the bed this morning but there is no bleeding I explained to him has to be very careful with the stump for even minor injuries can result in necrosis of the skin Patient can be discharged any time and has to follow-up with me in about 3 weeks for stitch removal of the which she will have the prosthesis fit Objective: Vital Signs Date Time Temp Pulse Resp B/P (MAP) Pulse Ox O2 Delivery O2 Flow Rate FiO2 01/06/17 08:00 97.3 62 16 122/66 (84) 92 01/06/17 00:00 98.4 62 18 108/58 (75) 99 01/05/17 21:40 18 01/05/17 20:00 97.9 66 20 115/58 (77) 99 01/05/17 16:00 97.5 62 16 109/59 (76) 98 Labs: Laboratory Tests Test 01/06/17 06:30 White Blood Count 5.2 TH/MM3 (4.0-11.0) Red Blood Count 4.09 MIL/MM3 (4.50-5.90) Hemoglobin 12.9 GM/DL (13.0-17.0) Hematocrit 37.7 % (39.0-51.0) Mean Corpuscular Volume 92.1 FL (80.0-100.0) Mean Corpuscular Hemoglobin 31.5 PG (27.0-34.0) Mean Corpuscular Hemoglobin Concent 34.2 % (32.0-36.0) Red Cell Distribution Width 14.5 % (11.6-17.2) Platelet Count 132 TH/MM3 (150-450) Mean Platelet Volume 8.7 FL (7.0-11.0) Neutrophils (%) (Auto) 58.1 % (16.0-70.0) Lymphocytes (%) (Auto) 25.1 % (9.0-44.0) Monocytes (%) (Auto) 11.5 % (0.0-8.0) Eosinophils (%) (Auto) 4.6 % (0.0-4.0) Basophils (%) (Auto) 0.7 % (0.0-2.0) Neutrophils # (Auto) 3.0 TH/MM3 (1.8-7.7) Lymphocytes # (Auto) 1.3 TH/MM3 (1.0-4.8) Monocytes # (Auto) 0.6 TH/MM3 (0-0.9) Eosinophils # (Auto) 0.2 TH/MM3 (0-0.4) Basophils # (Auto) 0.0 TH/MM3 (0-0.2) CBC Comment DIFF FINAL Differential Comment Blood Urea Nitrogen 6 MG/DL (7-18) Creatinine 0.67 MG/DL (0.60-1.30) Random Glucose 120 MG/DL (74-106) Total Protein 7.0 GM/DL (6.4-8.2) Albumin 2.9 GM/DL (3.4-5.0) Calcium Level 8.8 MG/DL (8.5-10.1) Alkaline Phosphatase 211 U/L (45-117) Aspartate Amino Transf (AST/SGOT) 59 U/L (15-37) Alanine Aminotransferase (ALT/SGPT) 207 U/L (12-78) Total Bilirubin 0.7 MG/DL (0.2-1.0) Sodium Level 133 MEQ/L (136-145) Potassium Level 4.1 MEQ/L (3.5-5.1) Chloride Level 100 MEQ/L (98-107) Carbon Dioxide Level 26.5 MEQ/L (21.0-32.0) Anion Gap 7 MEQ/L (5-15) Estimat Glomerular Filtration Rate 125 ML/MIN (>89) Result Diagram: 01/06/17 0630 01/06/17 0630 Albina Reddy MD Jan 06, 2017 15:13
--- NOTE | 2017-01-06 15:45 | HHI.PR ---
Subjective Remarks Follow-up right BKA and abnormal liver function tests. Patient doing okay and reports he has no place to go his will not take him back. Discussed with RN and case management. Also discussed with GI and general surgery both cleared patient for discharge Objective Vitals Vital Signs Date Time Temp Pulse Resp B/P (MAP) Pulse Ox O2 Delivery O2 Flow Rate FiO2 01/06/17 08:00 97.3 62 16 122/66 (84) 92 01/06/17 00:00 98.4 62 18 108/58 (75) 99 01/05/17 21:40 18 01/05/17 20:00 97.9 66 20 115/58 (77) 99 01/05/17 16:00 97.5 62 16 109/59 (76) 98 I/O 01/05/17 01/05/17 01/05/17 01/06/17 01/06/17 01/06/17 07:00 15:00 23:00 07:00 15:00 23:00 Intake Total 518 ml 1640 ml 320 ml Balance 518 ml 1640 ml 320 ml Intake Oral 1640 ml 320 ml IV Total 518 ml # Voids 2 4 2 # Bowel Movements 1 0 Result Diagram: 01/06/17 0630 01/06/17 0630 Imaging Last Impressions GI Procedure 01/04/17 0000 Signed Impressions: Service Date/Time: Wednesday, January 04, 2017 10:23 - CONCLUSION: ERCP as above. Meliton Jones MD Abdomen/Pelvis CT 01/03/17 0000 Signed Impressions: Service Date/Time: Tuesday, January 03, 2017 17:56 - CONCLUSION: 1. Internal biliary stent appears to be in good position. There is minimal dilatation of the distal common bile duct without calcified stone identified. 2. Fatty infiltration of the liver with areas of more severe focal fatty infiltration within the subcapsular region of the liver. 3. Mild splenomegaly. 4. Two tiny air bubbles within the urinary bladder lumen. These may be related to recent instrumentation or possible gas-forming organism. 5. Degenerative changes throughout the thoracolumbar spine. Andrea Mcmahon MD Foot X-Ray 01/01/17 0000 Signed Impressions: Service Date/Time: Sunday, January 01, 2017 17:15 - CONCLUSION: Previous midfoot amputation and with possible early bone destruction distally of the fifth metatarsal remnant. Bruce Espitia MD Objective Remarks Well-developed, well-nourished in no distress Pupils equal and reactive light and no jaundice Regular rate and rhythm Equal in expansion clear to auscultation Abdomen soft nontender Right BKA with dry dressing Alert and oriented nonfocal Procedures Right BKA and ERCP A/P Problem List: (1) Osteomyelitis of right foot ICD Code: M86.9 - Osteomyelitis, unspecified Status: Resolved (2) Non-compliance ICD Code: Z91.19 - Patient's noncompliance with other medical treatment and regimen Status: Acute (3) HTN (hypertension) ICD Code: I10 - Essential (primary) hypertension Status: Chronic (4) DM (diabetes mellitus) ICD Code: E11.9 - Type 2 diabetes mellitus without complications Assessment and Plan Right Foot Osteomyelitis: -chronic right foot infection secondary to noncompliance. Foot X-ray w/ previous midfoot amputation and possible early bone destruction of fifth metatarsal remnant . Status post branchial -Status post BKA on 01/02/17. Continue wound care and pain management counseled regarding narcotics HTN: Controlled. -Continue lisinopril eye pain secondary to ingrown hair -Pending soap boiler valdez. -Patient refused any irrigation and wanted a tweezer so he could remove the hair himself. Pt was Educated that by previous hospitalist that she couldn't give him a tweezer because that may cause more injury to his eye. -No complaints today. hx Choledocholithiasis status post biliary stent -Status post ERCP and stent removal 01/04/17. Management per GI. Elevated LFTs, asymptomatic. -Improving follow-up pending labs. Outpatient follow-up T2DM: - Sliding scale w/ Accu-Cheks. Hold Metformin for now. DVT Prophylaxis: Lovenox Discharge Planning Stable for discharge but no safe discharge plans at this time. Case management following Ottoniel Walker MD Jan 06, 2017 15:45
[2017-01-06 16:00] VITALS: BP 135/66; PULSE 71; RESP 16; TEMP 97.2; O2SAT 99
[2017-01-06] MEDS ORDERED: OXYC-395 PO (16:03)
[2017-01-06] MEDS ORDERED: NALOXONE HCL 0.4 MG/ML AMP IV PUSH PRN (17:00)
[2017-01-06 20:00] VITALS: BP 111/53; PULSE 53; RESP 20; TEMP 98.1; O2SAT 98
[2017-01-06] MEDS: MAGNESIUM HYDROXIDE SUSP 30 ML CUP PO PRN (20:49)
[2017-01-06] MEDS: ZOLPIDEM TARTRATE 5 MG TAB PO PRN (22:51)
[2017-01-07] VITALS: BP 108/60; PULSE 60; RESP 18; TEMP 97.2; O2SAT 97
[2017-01-07] MEDS: INSULIN ASPART SUPPLEMENTAL SCALE SQ SCH ×4 (07:49→19:45)
[2017-01-07 08:44] VITALS: BP 118/72; PULSE 64; RESP 17; TEMP 98.6; O2SAT 97
[2017-01-07] MEDS: LACTULOSE SYRUP 20 GM/30 ML CUP PO PRN (09:23)
[2017-01-07] MEDS: LISINOPRIL 10 MG TAB PO SCH (09:23)
[2017-01-07] MEDS: FAMOTIDINE 20 MG TAB PO SCH ×2 (09:24→19:44)
[2017-01-07] MEDS: SODIUM CHLORIDE 0.9% FLUSH 10 ML FLUSH IV FLUSH SCH ×2 (09:24→19:44)
[2017-01-07] MEDS: ENOXAPARIN SODIUM 40 MG/0.4 ML SYRINGE SQ SCH (09:24)
[2017-01-07] MEDS: DOCUSATE SODIUM 50 MG/SENNA 8.6 MG TAB PO SCH ×2 (09:24→19:44)
[2017-01-07 12:03] VITALS: BP 121/79; PULSE 67; RESP 18; TEMP 98.9; O2SAT 98
--- NOTE | 2017-01-07 13:05 | HHI.PR ---
Subjective Remarks Follow-up right BKA and abnormal liver function tests. Patient reported pain to be a 5-7, trying to "not use pain medication until I have to." Pain education/information provided to pt. Pt somewhat tearful when speaking about the end of his 14 year marriage. Pt said he was told yesterday "I am not welcome back in my home." Constipation reported, no bowel movement "in about three days." Pt said he has received some medication for it and is drinking water. Pt inquiring why he is on healthy heart diet, requesting it to be changed. Patient reported using walker to ambulate around the unit. Patient did report an episode of nausea last evening; cause was unknown. No other acute issues reported by pt. Pt denied fever, cough, shortness of breath, nausea, vomiting, diarrhea, abdominal/chest pain. Per RN (Saray) patient has been upset regarding the news of his marital separation. Otherwise, no other issues noted overnight are sent started shift. Objective Vitals Vital Signs Date Time Temp Pulse Resp B/P (MAP) Pulse Ox O2 Delivery O2 Flow Rate FiO2 01/07/17 12:03 98.9 67 18 121/79 (93) 98 01/07/17 08:44 98.6 64 17 118/72 (87) 97 01/07/17 00:00 97.2 60 18 108/60 (76) 97 01/06/17 20:00 98.1 53 20 111/53 (72) 98 01/06/17 16:00 97.2 71 16 135/66 (89) 99 I/O 01/06/17 01/06/17 01/06/17 01/07/17 01/07/17 01/07/17 07:00 15:00 23:00 07:00 15:00 23:00 Intake Total 320 ml 720 ml 480 ml Balance 320 ml 720 ml 480 ml Intake Oral 320 ml 720 ml 480 ml IV Total 0 ml # Voids 2 2 3 # Bowel Movements 0 0 0 Result Diagram: 01/06/1730 01/06/1730 Imaging Last Impressions GI Procedure 01/04/17 0000 Signed Impressions: Service Date/Time: Wednesday, January 04, 2017 10:23 - CONCLUSION: ERCP as above. Meliton Jones MD Abdomen/Pelvis CT 01/03/17 0000 Signed Impressions: Service Date/Time: Tuesday, January 03, 2017 17:56 - CONCLUSION: 1. Internal biliary stent appears to be in good position. There is minimal dilatation of the distal common bile duct without calcified stone identified. 2. Fatty infiltration of the liver with areas of more severe focal fatty infiltration within the subcapsular region of the liver. 3. Mild splenomegaly. 4. Two tiny air bubbles within the urinary bladder lumen. These may be related to recent instrumentation or possible gas-forming organism. 5. Degenerative changes throughout the thoracolumbar spine. Andrea Mcmahon MD Foot X-Ray 01/01/17 0000 Signed Impressions: Service Date/Time: Sunday, January 01, 2017 17:15 - CONCLUSION: Previous midfoot amputation and with possible early bone destruction distally of the fifth metatarsal remnant. Bruce Espitia MD Objective Remarks GENERAL: Patient encountered sitting in a bed, watching TV. NAD. SKIN: Warm and dry. Bandage noted over right BKA. HEAD: Normocephalic. EYES: No scleral icterus. No injection or drainage. NECK: Supple, trachea midline. No lymphadenopathy. CARDIOVASCULAR: Regular rate and rhythm without murmurs, gallops, or rubs. RESPIRATORY: Breath sounds equal bilaterally. No wheezes rhonchi or crackles. No accessory muscle use. GASTROINTESTINAL: Abdomen soft, non-tender, nondistended. MUSCULOSKELETAL: No cyanosis, or edema. PSYCHIATRIC: Mood and affect depressed; insight and judgment normal. Patient was pleasant and cooperative. Procedures Right BKA and ERCP Medications and IVs Current Medications Medications (Trade) Dose Ordered Sig/Mary Route Start Time Stop Time Status Last Admin (NS Flush) 2 ml UNSCH PRN IV FLUSH 01/01/17 18:30 01/04/17 23:16 (NS Flush) 2 ml BID IV FLUSH 01/01/17 21:00 01/07/17 09:24 (Tylenol) 650 mg Q4H PRN PO 01/01/17 18:30 01/02/17 00:35 (Zofran Inj) 4 mg Q6H PRN IVP 01/01/17 18:30 (Narcan Inj) 0.4 mg UNSCH PRN IV PUSH 01/01/17 18:30 (Chey-Colace) 1 tab BID PO 01/01/17 21:00 01/07/17 09:24 (Milk Of Magnesia Liq) 30 ml Q12H PRN PO 01/01/17 18:30 01/06/17 20:49 (Senokot) 17.2 mg Q12H PRN PO 01/01/17 18:30 (Dulcolax Supp) 10 mg DAILY PRN RECTAL 01/01/17 18:30 (Lactulose Liq) 30 ml DAILY PRN PO 01/01/17 18:30 01/07/17 09:23 (Pepcid) 20 mg BID PO 01/01/17 21:00 01/07/17 09:24 (Prinivil) 10 mg DAILY PO 01/02/17 09:00 01/07/17 09:23 (D50w (Vial) Inj) 50 ml UNSCH PRN IV 01/01/17 18:45 (Glucagon Inj) 1 mg UNSCH PRN OTHER 01/01/17 18:45 (Lovenox Inj) 40 mg DAILY SQ 01/03/17 09:00 Future hold 01/07/17 09:24 (Ambien) 5 mg HS PRN PO 01/05/17 14:00 01/06/17 22:51 (NovoLOG SUPPLEMENTAL SCALE) 1 ACHS SLIDING SCALE SQ 01/06/17 12:00 01/06/17 20:49 (Roxicodone) 10 mg Q4H PRN PO 01/06/17 17:00 01/07/17 09:28 (Roxicodone) 5 mg Q4H PRN PO 01/06/17 17:00 (Narcan Inj) 0.4 mg UNSCH PRN IV PUSH 01/06/17 17:00 Urinary Catheter: No A/P Problem List: (1) Osteomyelitis of right foot ICD Code: M86.9 - Osteomyelitis, unspecified Status: Resolved (2) Non-compliance ICD Code: Z91.19 - Patient's noncompliance with other medical treatment and regimen Status: Acute (3) HTN (hypertension) ICD Code: I10 - Essential (primary) hypertension Status: Chronic (4) DM (diabetes mellitus) ICD Code: E11.9 - Type 2 diabetes mellitus without complications Status: Chronic Assessment and Plan This is a 51-year-old male with a PMH of HTN, DM and Chronic Right Foot Infection who presented to the ER with complaints of right foot pain and purulent, foul-smelling drainage x2 days. Right foot osteomyelitis: Pain management education provided to patient. HTN: Stable. Lisinopril 10 mg by mouth daily. Diabetes: Last 24-hour range 76-146. Patient received 1 unit supplemental insulin with an past 24 hours. Patient placed on regular diet. Right Foot Osteomyelitis: -chronic right foot infection secondary to noncompliance. Foot X-ray w/ previous midfoot amputation and possible early bone destruction of fifth metatarsal remnant . Status post branchial -Status post BKA on 01/02/17. Continue wound care and pain management counseled regarding narcotics HTN: Controlled. -Continue lisinopril eye pain secondary to ingrown hair -Pending chief executive or managing director valedz. -Patient refused any irrigation and wanted a tweezer so he could remove the hair himself. Pt was Educated that by previous hospitalist that she couldn't give him a tweezer because that may cause more injury to his eye. -No complaints today. hx Choledocholithiasis status post biliary stent -Status post ERCP and stent removal 01/04/17. Management per GI. Elevated LFTs, asymptomatic. -Improving follow-up pending labs. Outpatient follow-up T2DM: - Sliding scale w/ Accu-Cheks. Hold Metformin for now. DVT Prophylaxis: Lovenox Case discussed with patient, RN, and Dr. Walker. Discharge Planning Placement is now an issue due to marital separation. Discharge planning is ongoing. Problem Qualifiers (1) DM (diabetes mellitus): Qualified Codes: E11.9 - Type 2 diabetes mellitus without complications Vic Mendoza Jr. Jan 07, 2017 13:05
[2017-01-07 15:50] VITALS: BP 117/70; PULSE 61; RESP 17; TEMP 97.9; O2SAT 100
[2017-01-07 20:00] VITALS: BP 109/63; PULSE 70; RESP 17; TEMP 95.9; O2SAT 98
[2017-01-07] MEDS: ZOLPIDEM TARTRATE 5 MG TAB PO PRN (23:46)
[2017-01-08] VITALS: BP 127/62; PULSE 56; RESP 17; TEMP 96.2; O2SAT 100
[2017-01-08] MEDS: MAGNESIUM HYDROXIDE SUSP 30 ML CUP PO PRN (05:10)
[2017-01-08] MEDS: INSULIN ASPART SUPPLEMENTAL SCALE SQ SCH ×4 (08:00→20:26)
[2017-01-08] MEDS: ENOXAPARIN SODIUM 40 MG/0.4 ML SYRINGE SQ SCH (08:28)
[2017-01-08] MEDS: SODIUM CHLORIDE 0.9% FLUSH 10 ML FLUSH IV FLUSH SCH ×2 (08:28→20:27)
[2017-01-08] MEDS: FAMOTIDINE 20 MG TAB PO SCH ×2 (08:28→20:25)
[2017-01-08] MEDS: LACTULOSE SYRUP 20 GM/30 ML CUP PO PRN (08:28)
[2017-01-08] MEDS: LISINOPRIL 10 MG TAB PO SCH (08:28)
[2017-01-08] MEDS: DOCUSATE SODIUM 50 MG/SENNA 8.6 MG TAB PO SCH ×2 (08:28→20:25)
[2017-01-08 08:56] VITALS: BP 91/64; PULSE 57; RESP 18; TEMP 96.7; O2SAT 97
[2017-01-08 12:57] VITALS: BP 118/70; PULSE 62; RESP 19; TEMP 95.2; O2SAT 100
--- NOTE | 2017-01-08 14:13 | HHI.PR ---
Subjective Remarks Follow-up right BKA and abnormal liver function tests. Pain ongoing. Pt said he had broken sleep secondary to pain. Pt stated he " rolls around in bed and I think the way my leg falls onto my other leg causes pain." Pt stated he has ongoing "burning pain" with episodic "sharp stabbing pain." Pt reported pain "stays right at a "7" but with medication "it drops down to a "5". Patient reported using walker to ambulate around the unit "as much as I can." Pt stated he is to be discharged to a SNF on 01/09/17 but he doesn't know "where I am going." No other acute issues reported by pt. Pt denied fever, cough, shortness of breath, nausea, vomiting, diarrhea, abdominal/chest pain. Per RN (Saray) no other issues noted overnight are sent started shift. Objective Vitals Vital Signs Date Time Temp Pulse Resp B/P (MAP) Pulse Ox O2 Delivery O2 Flow Rate FiO2 01/08/17 12:57 95.2 62 19 118/70 (86) 100 01/08/17 08:56 96.7 57 18 91/64 (73) 97 01/08/17 00:00 96.2 56 17 127/62 (83) 100 01/07/17 20:00 95.9 70 17 109/63 (78) 98 01/07/17 15:50 97.9 61 17 117/70 (86) 100 I/O 01/07/17 01/07/17 01/07/17 01/08/17 01/08/17 01/08/17 07:00 15:00 23:00 07:00 15:00 23:00 Intake Total 480 ml 0 ml 240 ml Balance 480 ml 0 ml 240 ml Intake Oral 480 ml 240 ml IV Total 0 ml 0 ml # Voids 3 2 # Bowel Movements 0 Result Diagram: 01/06/1730 01/06/17 0630 Objective Remarks GENERAL: Patient encountered sitting in a bed, watching TV. NAD. SKIN: Warm and dry. Bandage noted over right BKA clean and dry. HEAD: Normocephalic. EYES: No scleral icterus. No injection or drainage. NECK: Supple, trachea midline. No lymphadenopathy. CARDIOVASCULAR: Regular rate and rhythm without murmurs, gallops, or rubs. RESPIRATORY: Breath sounds equal bilaterally. No wheezes rhonchi or crackles. No accessory muscle use. GASTROINTESTINAL: Abdomen soft, non-tender, nondistended. MUSCULOSKELETAL: No cyanosis, or edema. PSYCHIATRIC: Mood and affect depressed; insight and judgment normal. Patient was pleasant and cooperative. Procedures Right BKA and ERCP Medications and IVs Current Medications Medications (Trade) Dose Ordered Sig/Mary Route Start Time Stop Time Status Last Admin (NS Flush) 2 ml UNSCH PRN IV FLUSH 01/01/17 18:30 01/04/17 23:16 (NS Flush) 2 ml BID IV FLUSH 01/01/17 21:00 01/08/17 08:28 (Tylenol) 650 mg Q4H PRN PO 01/01/17 18:30 01/02/17 00:35 (Zofran Inj) 4 mg Q6H PRN IVP 01/01/17 18:30 (Narcan Inj) 0.4 mg UNSCH PRN IV PUSH 01/01/17 18:30 (Chey-Colace) 1 tab BID PO 01/01/17 21:00 01/08/17 08:28 (Milk Of Magnesia Liq) 30 ml Q12H PRN PO 01/01/17 18:30 01/08/17 05:10 (Senokot) 17.2 mg Q12H PRN PO 01/01/17 18:30 01/07/17 12:34 (Dulcolax Supp) 10 mg DAILY PRN RECTAL 01/01/17 18:30 (Lactulose Liq) 30 ml DAILY PRN PO 01/01/17 18:30 01/08/17 08:28 (Pepcid) 20 mg BID PO 01/01/17 21:00 01/08/17 08:28 (Prinivil) 10 mg DAILY PO 01/02/17 09:00 01/08/17 08:28 (D50w (Vial) Inj) 50 ml UNSCH PRN IV 01/01/17 18:45 (Glucagon Inj) 1 mg UNSCH PRN OTHER 01/01/17 18:45 (Lovenox Inj) 40 mg DAILY SQ 01/03/17 09:00 Future hold 01/08/17 08:28 (Ambien) 5 mg HS PRN PO 01/05/17 14:00 01/07/17 23:46 (NovoLOG SUPPLEMENTAL SCALE) 1 ACHS SLIDING SCALE SQ 01/06/17 12:00 01/07/17 19:45 (Roxicodone) 10 mg Q4H PRN PO 01/06/17 17:00 01/08/17 11:03 (Roxicodone) 5 mg Q4H PRN PO 01/06/17 17:00 (Narcan Inj) 0.4 mg UNSCH PRN IV PUSH 01/06/17 17:00 Urinary Catheter: No A/P Problem List: (1) Osteomyelitis of right foot ICD Code: M86.9 - Osteomyelitis, unspecified Status: Resolved (2) Non-compliance ICD Code: Z91.19 - Patient's noncompliance with other medical treatment and regimen Status: Acute (3) HTN (hypertension) ICD Code: I10 - Essential (primary) hypertension Status: Chronic (4) DM (diabetes mellitus) ICD Code: E11.9 - Type 2 diabetes mellitus without complications Status: Chronic Assessment and Plan This is a 51-year-old male with a PMH of HTN, DM and Chronic Right Foot Infection who presented to the ER with complaints of right foot pain and purulent, foul-smelling drainage x2 days. Right foot osteomyelitis: Status post BKA on 01/02/17. Pain being managed with oral agents. HTN: Stable. Lisinopril 10 mg by mouth daily. Diabetes: Last 24- hour range 87-162. Patient received 1 unit x2 supplemental insulin within past 24 hours. Right Foot Osteomyelitis: -chronic right foot infection secondary to noncompliance. Foot X-ray w/ previous midfoot amputation and possible early bone destruction of fifth metatarsal remnant . Status post branchial -Status post BKA on 01/02/17. Continue wound care and pain management counseled regarding narcotics HTN: Controlled. -Continue lisinopril eye pain secondary to ingrown hair -Pending management professor valdez. -Patient refused any irrigation and wanted a tweezer so he could remove the hair himself. Pt was Educated that by previous hospitalist that she couldn't give him a tweezer because that may cause more injury to his eye. -No complaints today. hx Choledocholithiasis status post biliary stent -Status post ERCP and stent removal 01/04/17. Management per GI. Elevated LFTs, asymptomatic. -Improving follow-up pending labs. Outpatient follow-up T2DM: - Sliding scale w/ Accu-Cheks. Hold Metformin for now. DVT Prophylaxis: Lovenox Case discussed with patient, RN, and Dr. Walker. Discharge Planning Placement is now an issue due to marital separation. Pt stated he is to be discharged to a SNF on 01/09/17; location not known to patient. No definitive discharge plan noted by CM. Discharge planning is ongoing. Problem Qualifiers (1) HTN (hypertension): Qualified Codes: I10 - Essential (primary) hypertension (2) DM (diabetes mellitus): Qualified Codes: E11.9 - Type 2 diabetes mellitus without complications Vic Mendoza Jr. Jan 08, 2017 14:13
[2017-01-08 17:22] VITALS: BP 102/63; PULSE 56; RESP 19; TEMP 97.5; O2SAT 99
[2017-01-08] MEDS: ZOLPIDEM TARTRATE 5 MG TAB PO PRN (20:25)
[2017-01-08 20:58] VITALS: BP 105/58; PULSE 70; RESP 18; TEMP 97.1; O2SAT 97
[2017-01-09 00:17] VITALS: BP 106/51; PULSE 79; RESP 20; TEMP 97.8; O2SAT 96
[2017-01-09 07:53] LABS: MITOCHONDRIAL ABS LESS THAN 20.0 U (<=20.0)
[2017-01-09 08:00] VITALS: BP 116/63; PULSE 54; RESP 18; TEMP 96.9; O2SAT 99
[2017-01-09] MEDS: INSULIN ASPART SUPPLEMENTAL SCALE SQ SCH ×4 (08:07→20:29)
[2017-01-09] MEDS ORDERED: GETGO ROLLING W1 MI1 ×2 (09:55→09:59)
[2017-01-09] MEDS: ENOXAPARIN SODIUM 40 MG/0.4 ML SYRINGE SQ SCH (10:00)
[2017-01-09] MEDS: SODIUM CHLORIDE 0.9% FLUSH 10 ML FLUSH IV FLUSH SCH ×2 (10:02→20:33)
[2017-01-09] MEDS: LISINOPRIL 10 MG TAB PO SCH (10:02)
[2017-01-09] MEDS: DOCUSATE SODIUM 50 MG/SENNA 8.6 MG TAB PO SCH ×2 (10:03→20:27)
[2017-01-09] MEDS: FAMOTIDINE 20 MG TAB PO SCH ×2 (10:03→20:27)
[2017-01-09] MEDS ORDERED: WHEEMIS3 (10:43)
[2017-01-09 12:00] VITALS: BP 102/58; PULSE 61; RESP 19; TEMP 97; O2SAT 96
--- NOTE | 2017-01-09 12:05 | PD.CAR.PN ---
CVT Progress Note Subjective/Hospital Course: 51-year-old noncompliant male with long-standing 2 diabetes mellitus smoking about a pack a day most of his adult life. Patient ended up with the right transmetatarsal amputation and then did not follow up so the whole area got infected during the store when he was walking through dirty water. Patient came to the hospital with infected right foot stump, crawling with maggots in involved with gangrene. I reviewed CTA with runoff that was done in September this year and this is surprisingly clean as far as peripheral vascular disease is concerned, nonetheless patient has small vessel disease in both legs At this point there are no other options available and I agree with Dr. 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 We will remove dressing tomorrow 01/06/17 Stump is clean and dry no drainage is noted Patient hit the stump against the bed this morning but there is no bleeding I explained to him has to be very careful with the stump for even minor injuries can result in necrosis of the skin Patient can be discharged any time and has to follow-up with me in about 3 weeks for stitch removal of the which she will have the prosthesis fit 01/09/17 In last 48 hours patient has hit the stump against the railing and against the chair at least 4 times At this point there is some swelling on the anterior portion of the stump with some discoloration Stump flaps are unfortunately dependent on precarious blood flow and any injury to it may result in necrosis of the stump I explained this to the patient that while he is nodding yes he sort of dismissive about it and said everything will be okay Examination of the stump revealed some swelling of the anterior portion of the stump with some discoloration and dusky appearing skin which is clearly result of the injury There is a chance this may dehisce or patient may need revision of the past but right now it looks okay and I would not do anything different Objective: Vital Signs Date Time Temp Pulse Resp B/P (MAP) Pulse Ox O2 Delivery O2 Flow Rate FiO2 01/09/17 08:00 96.9 54 18 116/63 (80) 99 01/09/17 00:17 97.8 79 20 106/51 (69) 96 01/08/17 20:58 97.1 70 18 105/58 (74) 97 01/08/17 17:22 97.5 56 19 102/63 (76) 99 01/08/17 12:57 95.2 62 19 118/70 (86) 100 Result Diagram: 01/06/1730 01/06/1730 Albina Reddy MD Jan 09, 2017 12:05
--- NOTE | 2017-01-09 13:13 | HHI.PR ---
Subjective Remarks Follow-up right BKA and abnormal liver function tests. Pain ongoing reported to be a constant "7" with medication improving pain to a "5" out of 10. Pt quality reported to be ongoing "burning pain" with episodic "sharp stabbing pain." He spoke of having a sense of feeling his amputated foot. Pt reported having some "drainage from my stump this morning" and "they came in here and bound it up tight." Patient reported using walker to ambulate around the unit "as much as I can." Pt reported walking unit with rolling walker, having some episodic "light headedness". Pt informed of case management not having SNF placement due to lack of insurance benefits. Pt voiced because of recent marital separation he will be homeless. No other acute issues reported by pt. Pt denied fever, cough, shortness of breath, nausea, vomiting, diarrhea, abdominal/chest pain. Per RN (Lizbeth) pt has had some episodic hypotension. She also reported drainage from end of stump. Otherwise, no other issues noted overnight are sent started shift. Objective Vitals Vital Signs Date Time Temp Pulse Resp B/P (MAP) Pulse Ox O2 Delivery O2 Flow Rate FiO2 01/09/17 08:00 96.9 54 18 116/63 (80) 99 01/09/17 00:17 97.8 79 20 106/51 (69) 96 01/08/17 20:58 97.1 70 18 105/58 (74) 97 01/08/17 17:22 97.5 56 19 102/63 (76) 99 I/O 01/08/17 01/08/17 01/08/17 01/09/17 01/09/17 01/09/17 07:00 15:00 23:00 07:00 15:00 23:00 Intake Total 240 ml 360 ml 120 ml Output Total 780 ml Balance 240 ml -420 ml 120 ml Intake Oral 240 ml 360 ml 120 ml Output Urine Total 780 ml # Voids 2 # Bowel Movements 0 Result Diagram: 01/06/1762901/06/17629 Objective Remarks GENERAL: Patient encountered sitting in a bed, watching TV. Mild emotional distress when speaking about being homeless. SKIN: Warm and dry. Kerlix bandage noted over right BKA. HEAD: Normocephalic. EYES: No scleral icterus. No injection or drainage. NECK: Supple, trachea midline. No lymphadenopathy. CARDIOVASCULAR: Regular rate and rhythm without murmurs, gallops, or rubs. RESPIRATORY: Breath sounds equal bilaterally. No wheezes rhonchi or crackles. No accessory muscle use. GASTROINTESTINAL: Abdomen soft, non-tender, nondistended. MUSCULOSKELETAL: No cyanosis, or edema. PSYCHIATRIC: Mood and affect depressed some tearfulness noted; insight and judgment normal. Patient was pleasant and cooperative. Procedures Right BKA and ERCP A/P Problem List: (1) Osteomyelitis of right foot ICD Code: M86.9 - Osteomyelitis, unspecified Status: Resolved (2) Non-compliance ICD Code: Z91.19 - Patient's noncompliance with other medical treatment and regimen Status: Acute (3) HTN (hypertension) ICD Code: I10 - Essential (primary) hypertension Status: Chronic (4) DM (diabetes mellitus) ICD Code: E11.9 - Type 2 diabetes mellitus without complications Status: Chronic Assessment and Plan This is a 51-year-old male with a PMH of HTN, DM and Chronic Right Foot Infection who presented to the ER with complaints of right foot pain and purulent, foul-smelling drainage x2 days. Right foot osteomyelitis: Status post BKA on 01/02/17. Pain being managed with oral agents. Surgeon has visited pt and educated him about injury. Tight bandage applied to address drainage and swelling. HTN: Pt evidenced three episodes of hypotension during past 24 hours. Labs ordered. Hold lisinopril. Diabetes: Last 24-hour range of blood glucose 70-122. Patient required no supplemental insulin within past 24 hours. Right Foot Osteomyelitis: -chronic right foot infection secondary to noncompliance. Foot X-ray w/ previous midfoot amputation and possible early bone destruction of fifth metatarsal remnant . Status post branchial -Status post BKA on 01/02/17. Continue wound care and pain management counseled regarding narcotics HTN: Controlled. -Continue lisinopril eye pain secondary to ingrown hair -Pending internship coordinator valdez. -Patient refused any irrigation and wanted a tweezer so he could remove the hair himself. Pt was Educated that by previous hospitalist that she couldn't give him a tweezer because that may cause more injury to his eye. -No complaints today. hx Choledocholithiasis status post biliary stent -Status post ERCP and stent removal 01/04/17. Management per GI. Elevated LFTs, asymptomatic. -Improving follow-up pending labs. Outpatient follow-up T2DM: - Sliding scale w/ Accu-Cheks. Hold Metformin for now. DVT Prophylaxis: Lovenox Case discussed with patient, RN, and Dr. Walker. Discharge Planning Placement is now an issue due to marital separation. Hypotensive episodes present as well as drainage from wound. No definitive discharge plan noted by CM. Discharge planning is ongoing. Problem Qualifiers (1) HTN (hypertension): Qualified Codes: I10 - Essential (primary) hypertension (2) DM (diabetes mellitus): Qualified Codes: E11.9 - Type 2 diabetes mellitus without complications Vic Mendoza Jr. Jan 09, 2017 13:13
[2017-01-09 16:00] VITALS: BP 135/66; PULSE 65; RESP 20; TEMP 96.9; O2SAT 100
[2017-01-09 17:37] LABS: ANION GAP 5 MEQ/L (5-15); BICARBONATE 30.1 MEQ/L (21.0-32.0); BLOOD UREA NITROGEN 11 MG/DL (7-18); CHLORIDE 101 MEQ/L (98-107); POTASSIUM 3.9 MEQ/L (3.5-5.1); SODIUM (NA) 136 MEQ/L (136-145)
[2017-01-09 17:41] LABS: ALKALINE PHOSPHATASE 145 U/L (45-117); ALT (GPT) 85 U/L (12-78); AST (GOT) 32 U/L (15-37); GLOMERULAR FILTRATION RATE 100 ML/MIN (>89); TOTAL BILIRUBIN ADULT 0.3 MG/DL (0.2-1.0)
[2017-01-09 20:00] VITALS: BP 135/65; PULSE 59; RESP 20; TEMP 97.3; O2SAT 98
[2017-01-09] MEDS: ZOLPIDEM TARTRATE 5 MG TAB PO PRN (23:29)
[2017-01-10] VITALS: BP 101/54; PULSE 60; RESP 20; TEMP 97.3; O2SAT 96
[2017-01-10] MEDS: INSULIN ASPART SUPPLEMENTAL SCALE SQ SCH ×4 (07:51→19:47)
[2017-01-10 08:00] VITALS: BP 119/67; PULSE 54; RESP 18; TEMP 97.2; O2SAT 96
[2017-01-10] MEDS: SODIUM CHLORIDE 0.9% FLUSH 10 ML FLUSH IV FLUSH SCH ×2 (09:00→19:45)
[2017-01-10] MEDS: DOCUSATE SODIUM 50 MG/SENNA 8.6 MG TAB PO SCH ×2 (09:00→19:44)
[2017-01-10] MEDS: ENOXAPARIN SODIUM 40 MG/0.4 ML SYRINGE SQ SCH (09:14)
[2017-01-10] MEDS: FAMOTIDINE 20 MG TAB PO SCH ×2 (09:14→19:44)
[2017-01-10] MEDS ORDERED: POLYETHYLENE GLYCOL 17 GM PKG PO ONE (09:45)
--- NOTE | 2017-01-10 10:30 | HHI.PR ---
Subjective Remarks Follow-up on patient status post right BKA. Patient seen and examined today. Patient requesting increase in pain medication for dressing changes only. Patient reports dizziness with position changes. He denies a previous history of hypertension. Patient denies any fever, chills or night sweats. He denies any nausea, vomiting or abdominal pain. He denies any chest pain or shortness of breath. He does complain of right eye irritation and decreased vision. He states he has a remote history of injury to the right eye that resulted in his eyelashes growing inward. Normally at home, he plucks the eyelashes to prevent irritation. He has not been seen by an dumbwaiter operator as of yet. Patient states he had a discussion with his significant other yesterday and she still refuses to let him come home at the time of his discharge. Objective Vitals Vital Signs Date Time Temp Pulse Resp B/P (MAP) Pulse Ox O2 Delivery O2 Flow Rate FiO2 01/10/17 08:00 97.2 54 18 119/67 (84) 96 01/10/17 07:14 18 01/10/17 00:00 97.3 60 20 101/54 (70) 96 01/09/17 20:00 97.3 59 20 135/65 (88) 98 01/09/17 16:00 96.9 65 20 135/66 (89) 100 01/09/17 12:00 97.0 61 19 102/58 (73) 96 I/O 01/09/17 01/09/17 01/09/17 01/10/17 01/10/17 01/10/17 07:00 15:00 23:00 07:00 15:00 23:00 Intake Total 360 ml 120 ml 800 ml 480 ml Output Total 780 ml 900 ml Balance -420 ml 120 ml -100 ml 480 ml Intake Oral 360 ml 120 ml 800 ml 480 ml Output Urine Total 780 ml 900 ml # Voids 3 # Bowel Movements 0 0 0 Result Diagram: 01/06/17 0630 01/09/17 1647 Imaging Last Impressions GI Procedure 01/04/17 0000 Signed Impressions: Service Date/Time: Wednesday, January 04, 2017 10:23 - CONCLUSION: ERCP as above. Meliton Jones MD Abdomen/Pelvis CT 01/03/17 0000 Signed Impressions: Service Date/Time: Tuesday, January 03, 2017 17:56 - CONCLUSION: 1. Internal biliary stent appears to be in good position. There is minimal dilatation of the distal common bile duct without calcified stone identified. 2. Fatty infiltration of the liver with areas of more severe focal fatty infiltration within the subcapsular region of the liver. 3. Mild splenomegaly. 4. Two tiny air bubbles within the urinary bladder lumen. These may be related to recent instrumentation or possible gas-forming organism. 5. Degenerative changes throughout the thoracolumbar spine. Andrea Mcmahon MD Foot X-Ray 01/01/17 0000 Signed Impressions: Service Date/Time: Sunday, January 01, 2017 17:15 - CONCLUSION: Previous midfoot amputation and with possible early bone destruction distally of the fifth metatarsal remnant. Bruce Espitia MD Objective Remarks GENERAL: Well-nourished, well-developed patient in NAD. Sitting up in hospital bed. Awake and alert. Appears comfortable at present. SKIN: Warm and dry. Status post right BKA, dressing C/D/I. HEAD: Normocephalic. Atraumatic. EYES: EOMI. No scleral icterus. Outer surface of right cornea erythematous. ENT: No nasal bleeding or discharge. Mucous membranes pink and moist. NECK: Supple. Trachea midline. CARDIOVASCULAR: Regular rate and rhythm. S1, S2 noted. No murmur appreciated. RESPIRATORY: No accessory muscle use. Clear to auscultation. Breath sounds equal bilaterally. GASTROINTESTINAL: Abdomen soft, non-tender, nondistended. Normoactive bowel sounds x4. MUSCULOSKELETAL: No obvious deformities. Extremities without clubbing, cyanosis , or edema. s/p right BKA. NEUROLOGICAL: Awake and alert. Able to move all extremities. Normal speech. PSYCHIATRIC: Appropriate mood and affect; insight and judgment normal. Procedures Right BKA and ERCP Medications and IVs Current Medications Medications (Trade) Dose Ordered Sig/Mary Route Start Time Stop Time Status Last Admin (NS Flush) 2 ml UNSCH PRN IV FLUSH 01/01/17 18:30 01/04/17 23:16 (NS Flush) 2 ml BID IV FLUSH 01/01/17 21:00 01/09/17 20:33 (Tylenol) 650 mg Q4H PRN PO 01/01/17 18:30 01/02/17 00:35 (Zofran Inj) 4 mg Q6H PRN IVP 01/01/17 18:30 (Narcan Inj) 0.4 mg UNSCH PRN IV PUSH 01/01/17 18:30 (Chey-Colace) 1 tab BID PO 01/01/17 21:00 01/09/17 20:27 (Milk Of Magnesia Liq) 30 ml Q12H PRN PO 01/01/17 18:30 01/08/17 05:10 (Senokot) 17.2 mg Q12H PRN PO 01/01/17 18:30 01/07/17 12:34 (Dulcolax Supp) 10 mg DAILY PRN RECTAL 01/01/17 18:30 (Lactulose Liq) 30 ml DAILY PRN PO 01/01/17 18:30 01/08/17 08:28 (Pepcid) 20 mg BID PO 01/01/17 21:00 01/10/17 09:14 (Prinivil) 10 mg DAILY PO 01/02/17 09:00 Future Hold 01/08/17 08:28 (D50w (Vial) Inj) 50 ml UNSCH PRN IV 01/01/17 18:45 (Glucagon Inj) 1 mg UNSCH PRN OTHER 01/01/17 18:45 (Lovenox Inj) 40 mg DAILY SQ 01/03/17 09:00 Future hold 01/10/17 09:14 (Ambien) 5 mg HS PRN PO 01/05/17 14:00 01/09/17 23:29 (NovoLOG SUPPLEMENTAL SCALE) 1 ACHS SLIDING SCALE SQ 01/06/17 12:00 01/09/17 17:25 (Roxicodone) 10 mg Q4H PRN PO 01/06/17 17:00 01/10/17 06:14 (Roxicodone) 5 mg Q4H PRN PO 01/06/17 17:00 (Narcan Inj) 0.4 mg UNSCH PRN IV PUSH 01/06/17 17:00 (Toradol Inj) 30 mg DAILY PRN IM 01/10/17 09:30 01/15/17 09:29 (Miralax) 17 gm DAILY PO 01/11/17 09:00 A/P Problem List: (1) Osteomyelitis of right foot ICD Code: M86.9 - Osteomyelitis, unspecified Status: Resolved (2) Non-compliance ICD Code: Z91.19 - Patient's noncompliance with other medical treatment and regimen Status: Acute (3) HTN (hypertension) ICD Code: I10 - Essential (primary) hypertension Status: Chronic (4) DM (diabetes mellitus) ICD Code: E11.9 - Type 2 diabetes mellitus without complications Status: Chronic Assessment and Plan This is a 51-year-old male with a PMH of HTN, DM and Chronic Right Foot Infection who presented to the ER with complaints of right foot pain and purulent, foul-smelling drainage x2 days. Right Foot Osteomyelitis: -chronic right foot infection secondary to noncompliance. Foot X-ray w/ previous midfoot amputation and possible early bone destruction of fifth metatarsal remnant . -Status post BKA on 01/02/[address] Reddy. -Per Dr. Delcid's note, patient has hit the stump multiple times - Examination of the stump revealed some swelling of the anterior portion of the stump with some discoloration and dusky appearing skin which is clearly result of the injury There is a chance this may dehisce or patient may need revision of the past but right now it looks okay and I would not do anything different -Counseled patient on care of the stump to allow for proper healing and minimize possibility of need for future surgical intervention -Continue wound care and pain management. IM Toradol prn BKA dressing changes. HTN -patient denies previous h/o HTN -Patient is hypotensive, symptomatic -Obtain orthostatic blood pressure measurements -Hold lisinopril -Monitor BP Right eye pain and impaired vision -Patient with remote history of injury to the right eye resulting in his eyelashes growing inwards causing recurrent irritation and infection -Ophthalmology consulted 01/03/17 but no evaluation as of yet. Discussed with nursing staff - no coverage until 01/12/17. hx Choledocholithiasis status post biliary stent -Status post ERCP and stent removal 01/04/17. -Tolerating diet with no complaints of nausea, vomiting or abdominal pain. -GI signed off, recommended follow-up as outpatient. Elevated LFTs, asymptomatic. -Trending down -hep profile negative -SHELBY neg, ASMA neg, ceruloplasmin 37 -f/u with GI as outpt T2DM: -BS 81 this am -Continue Sliding scale w/ Accu-Cheks. -Hold Metformin for now. Constipation -likely opiate-induced -Continue Chey-Colace BID -Add MiraLAX daily -Monitor for BM DVT Prophylaxis: Lovenox Case discussed with patient, RN, and Dr. Walker. Discharge Planning Placement issue. Patient does not have a residence for discharge. Case management working on placement at the [facility] which at this time is filled to capacity. Ongoing discharge planning. Case management looking into other housing options to include [facility] and [facility]. Attending Statement The exam, history, and the medical decision-making described in the above note were completed with the assistance of the mid-level provider. I reviewed and agree with the findings presented. I attest that I had a [id number] encounter with the patient on the same day, and personally performed and documented my assessment and findings in the medical record. Patient has no complaints. States he is homeless Vital signs noted BP improved. No signs of dehydration Pupils equal and reactive to light Clear to auscultation Right BKA with dry dressing Alert and oriented nonfocal Pertinent labs CMP with improving LFTs Right BKA. He is doing okay continue wound care. He will not be a safe discharge to the community being homeless secondary to recent BKA Hypertension. Patient was taken off antihypertensives because of low BP. Lisinopril has been discontinued. We'll continue to monitor Problem Qualifiers (1) HTN (hypertension): Qualified Codes: I10 - Essential (primary) hypertension (2) DM (diabetes mellitus): Qualified Codes: E11.9 - Type 2 diabetes mellitus without complications Lisa Callahan Jan 10, 2017 10:29 Ottoniel Walker MD Jan 10, 2017 13:33
[2017-01-10 12:00] VITALS: BP_SYST 125; BP_SYST 132; BP_DIAS 61; BP_DIAS 72; PULSE 52; PULSE 70; RESP 18; TEMP 97.8; O2SAT 99
[2017-01-10 12:34] VITALS: BP 128/63; PULSE 65
[2017-01-10] MEDS: KETOROLAC TROMETHAMINE 60 MG/2 ML (IM) VIAL IM PRN (14:03)
[2017-01-10 16:00] VITALS: BP 132/71; PULSE 64; RESP 18; TEMP 97.1; O2SAT 98
[2017-01-10 20:00] VITALS: BP 124/60; PULSE 52; RESP 20; TEMP 96.2; O2SAT 99
[2017-01-10] MEDS: ZOLPIDEM TARTRATE 5 MG TAB PO PRN (22:12)
[2017-01-11 00:23] VITALS: BP 107/55; PULSE 59; RESP 18; TEMP 96.4; O2SAT 98
[2017-01-11] MEDS: ENOXAPARIN SODIUM 40 MG/0.4 ML SYRINGE SQ SCH (07:56)
[2017-01-11] MEDS: FAMOTIDINE 20 MG TAB PO SCH (07:56)
[2017-01-11] MEDS: DOCUSATE SODIUM 50 MG/SENNA 8.6 MG TAB PO SCH (07:56)
[2017-01-11 08:00] VITALS: BP 110/66; PULSE 60; RESP 20; TEMP 98.9; O2SAT 95
[2017-01-11] MEDS: INSULIN ASPART SUPPLEMENTAL SCALE SQ SCH ×3 (08:00→16:41)
[2017-01-11] MEDS: SODIUM CHLORIDE 0.9% FLUSH 10 ML FLUSH IV FLUSH SCH (09:00)
[2017-01-11] MEDS ORDERED: POLYETHYLENE GLYCOL 17 GM PKG PO SCH (09:00)
--- NOTE | 2017-01-11 10:05 | HHI.PR ---
Subjective Remarks Follow-up on patient status post right BKA. Patient seen and examined. Patient states right eye is feeling better today as he was able to pluck a few eyelashes from the outside corner. He is upset that it was documented yesterday as having a latex allergy which patient denies. Discussed with JEFFERY Barrera who will contact pharmacy in regards to this. Patient denies any other complaints today. Pain is controlled. Dizziness is improved. Denies any fever or chills. Denies any N/V or abdominal pain. Denies any chest pain or dyspnea. Denies any diarrhea. Last BM was 2 days ago. Patient had front wheeled walker delivered to room. Uncertain if patient will be able to get wheelchair as he was issued one within the last 2 yrs. He is homeless. Objective Vitals Vital Signs Date Time Temp Pulse Resp B/P (MAP) Pulse Ox O2 Delivery O2 Flow Rate FiO2 01/11/17 08:00 98.9 60 20 110/66 (81) 95 01/11/17 00:23 96.4 59 18 107/55 (72) 98 01/10/17 20:00 96.2 52 20 124/60 (81) 99 01/10/17 16:00 97.1 64 18 132/71 (91) 98 01/10/17 15:03 18 01/10/17 12:34 65 128/63 (84) 01/10/17 12:03 18 01/10/17 12:00 97.8 52 18 132/61 (84) 99 01/10/17 12:00 70 125/72 (89) I/O 01/10/17 01/10/17 01/10/17 01/11/17 01/11/17 01/11/17 07:00 15:00 23:00 07:00 15:00 23:00 Intake Total 480 ml 480 ml 680 ml 120 ml Balance 480 ml 480 ml 680 ml 120 ml Intake Oral 480 ml 480 ml 680 ml 120 ml # Voids 3 3 4 # Bowel Movements 0 1 Result Diagram: 01/09/17 1647 Imaging Last Impressions GI Procedure 01/04/17 0000 Signed Impressions: Service Date/Time: Wednesday, January 04, 2017 10:23 - CONCLUSION: ERCP as above. Meliton Jones MD Abdomen/Pelvis CT 01/03/17 0000 Signed Impressions: Service Date/Time: Tuesday, January 03, 2017 17:56 - CONCLUSION: 1. Internal biliary stent appears to be in good position. There is minimal dilatation of the distal common bile duct without calcified stone identified. 2. Fatty infiltration of the liver with areas of more severe focal fatty infiltration within the subcapsular region of the liver. 3. Mild splenomegaly. 4. Two tiny air bubbles within the urinary bladder lumen. These may be related to recent instrumentation or possible gas-forming organism. 5. Degenerative changes throughout the thoracolumbar spine. Andrea Mcmahon MD Foot X-Ray 01/01/17 0000 Signed Impressions: Service Date/Time: Sunday, January 01, 2017 17:15 - CONCLUSION: Previous midfoot amputation and with possible early bone destruction distally of the fifth metatarsal remnant. Bruce Espitia MD Objective Remarks GENERAL: Well-nourished, well-developed patient in NAD. Sitting on side of hospital bed. Awake and alert. Appears comfortable. SKIN: Warm and dry. Status post right BKA, dressing C/D/I. HEAD: Normocephalic. Atraumatic. EYES: EOMI. No scleral icterus. Right eye erythematous. Mild erythema noted left eye. ENT: No nasal bleeding or discharge. Mucous membranes pink and moist. NECK: Supple. Trachea midline. CARDIOVASCULAR: Regular rate and rhythm. S1, S2 noted. No murmur appreciated. RESPIRATORY: No accessory muscle use. Clear to auscultation. Breath sounds equal bilaterally. GASTROINTESTINAL: Abdomen soft, non-tender, nondistended. Normoactive bowel sounds x4. MUSCULOSKELETAL: Extremities without clubbing, cyanosis, or edema. s/p right BKA. NEUROLOGICAL: Awake and alert. Able to move all extremities. Normal speech. PSYCHIATRIC: Appropriate mood and affect; insight and judgment normal. Procedures Right BKA and ERCP Medications and IVs Current Medications Medications (Trade) Dose Ordered Sig/Mary Route Start Time Stop Time Status Last Admin (NS Flush) 2 ml UNSCH PRN IV FLUSH 01/01/17 18:30 01/04/17 23:16 (NS Flush) 2 ml BID IV FLUSH 01/01/17 21:00 01/09/17 20:33 (Tylenol) 650 mg Q4H PRN PO 01/01/17 18:30 01/02/17 00:35 (Zofran Inj) 4 mg Q6H PRN IVP 01/01/17 18:30 (Narcan Inj) 0.4 mg UNSCH PRN IV PUSH 01/01/17 18:30 (Chey-Colace) 1 tab BID PO 01/01/17 21:00 01/11/17 07:56 (Milk Of Magnesia Liq) 30 ml Q12H PRN PO 01/01/17 18:30 01/08/17 05:10 (Senokot) 17.2 mg Q12H PRN PO 01/01/17 18:30 01/07/17 12:34 (Dulcolax Supp) 10 mg DAILY PRN RECTAL 01/01/17 18:30 (Lactulose Liq) 30 ml DAILY PRN PO 01/01/17 18:30 01/08/17 08:28 (Pepcid) 20 mg BID PO 01/01/17 21:00 01/11/17 07:56 (Prinivil) 10 mg DAILY PO 01/02/17 09:00 Future Hold 01/08/17 08:28 (D50w (Vial) Inj) 50 ml UNSCH PRN IV 01/01/17 18:45 (Glucagon Inj) 1 mg UNSCH PRN OTHER 01/01/17 18:45 (Lovenox Inj) 40 mg DAILY SQ 01/03/17 09:00 Future hold 01/11/17 07:56 (Ambien) 5 mg HS PRN PO 01/05/17 14:00 01/10/17 22:12 (NovoLOG SUPPLEMENTAL SCALE) 1 ACHS SLIDING SCALE SQ 01/06/17 12:00 01/09/17 17:25 (Roxicodone) 10 mg Q4H PRN PO 01/06/17 17:00 01/11/17 07:06 (Roxicodone) 5 mg Q4H PRN PO 01/06/17 17:00 (Narcan Inj) 0.4 mg UNSCH PRN IV PUSH 01/06/17 17:00 (Toradol Inj) 30 mg DAILY PRN IM 01/10/17 09:30 01/15/17 09:29 01/10/17 14:03 (Miralax) 17 gm DAILY PO 01/11/17 09:00 01/11/17 07:56 A/P Problem List: (1) Osteomyelitis of right foot ICD Code: M86.9 - Osteomyelitis, unspecified Status: Resolved (2) Non-compliance ICD Code: Z91.19 - Patient's noncompliance with other medical treatment and regimen Status: Acute (3) HTN (hypertension) ICD Code: I10 - Essential (primary) hypertension Status: Chronic (4) DM (diabetes mellitus) ICD Code: E11.9 - Type 2 diabetes mellitus without complications Status: Chronic Assessment and Plan This is a 51-year-old male with a PMH of HTN, DM and Chronic Right Foot Infection who presented to the ER with complaints of right foot pain and purulent, foul-smelling drainage x2 days. Right Foot Osteomyelitis: -chronic right foot infection secondary to noncompliance. Foot X-ray w/ previous midfoot amputation and possible early bone destruction of fifth metatarsal remnant . -Status post BKA on 01/02/[address] Reddy. -Per Dr. Delcid's note, patient has hit the stump multiple times - Examination of the stump revealed some swelling of the anterior portion of the stump with some discoloration and dusky appearing skin which is clearly result of the injury There is a chance this may dehisce or patient may need revision of the past but right now it looks okay and I would not do anything different -Counseled patient on care of the stump to allow for proper healing and minimize possibility of need for future surgical intervention -Continue wound care and pain management. IM Toradol prn BKA dressing changes. HTN -patient denies previous h/o HTN -currently hypotensive but improved -orthostatic blood pressure measurements negative -continue to hold lisinopril -Monitor BP Right eye pain and impaired vision Conjunctivitis -improving ppr but clinically entire right eye is now erythematous -begin Cipro drops bilateral eyes -Patient with remote history of injury to the right eye resulting in his eyelashes growing inwards causing recurrent irritation and infection -Ophthalmology consulted 01/03/17 but no evaluation as of yet. Discussed with nursing staff - no coverage until 01/12/17. hx Choledocholithiasis status post biliary stent -Status post ERCP and stent removal 01/04/17. -Tolerating diet with no complaints of nausea, vomiting or abdominal pain. -GI signed off, recommended follow-up as outpatient. Elevated LFTs, asymptomatic. -Trending down -hep profile negative -SHELBY neg, ASMA neg, ceruloplasmin 37 -f/u with GI as outpt T2DM: -BS 80 this am -Continue Sliding scale w/ Accu-Cheks, decrease accucheks to BID -Hold home Metformin Constipation -likely opiate-induced -Continue Chey-Colace BID -MiraLAX daily -Monitor for BM DVT Prophylaxis: Lovenox Case discussed with patient, Bruce GIL, and Dr. Walker. Discharge Planning Placement issue. Patient does not have a residence for discharge. Case management working on placement at the [facility] which at this time is filled to capacity. Ongoing discharge planning. Case management looking into other housing options to include [employer] and [employer]. Problem Qualifiers (1) HTN (hypertension): Qualified Codes: I10 - Essential (primary) hypertension (2) DM (diabetes mellitus): Qualified Codes: E11.9 - Type 2 diabetes mellitus without complications Lisa Callahan Jan 11, 2017 10:05
[2017-01-11 12:00] VITALS: BP 140/79; PULSE 53; RESP 20; TEMP 96.9; O2SAT 100
[2017-01-11] MEDS: KETOROLAC TROMETHAMINE 60 MG/2 ML (IM) VIAL IM PRN (14:03)
--- NOTE | 2017-01-11 15:25 | HHI.FF ---
Face to Face Verification Diagnosis: (1) Status post below knee amputation of right lower extremity (2) Diabetic foot ulcer (3) Osteomyelitis of right foot (4) DM (diabetes mellitus) Home Health Nursing Order: Medical education Signs/symptoms of disease process Wound care and dressing changes I have seen patient Osito Peter, III on 01/11/17. My clinical findings support the need for the requested home health care services because: Ltd mobility - disease progression Deconditioned w/ increased weakness I certify that my clinical findings support that this patient is homebound because: Post-op weakness Unsteady gait/balance Lisa Callahan Jan 11, 2017 15:25
[2017-01-11] MEDS ORDERED: CIPR0.3S2 EACH EYE (15:30)
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
--- NOTE | 2017-01-11 15:40 | HHI.DCPOC ---
Discharge Care Plan Diagnosis: (1) Osteomyelitis of right foot (2) Type 2 diabetes mellitus (3) Conjunctivitis (4) Diabetic foot ulcer (5) Liver function test abnormality (6) Choledocholithiasis with obstruction (7) Tobacco abuse Goals to Promote Your Health * To prevent worsening of your condition and complications * To maintain your health at the optimal level Directions to Meet Your Goals PLEASE STOP SMOKING PLEASE PERFORM DAILY DRESSING CHANGES TO RIGHT LOWER EXTREMITY Take your medications as prescribed Follow your dietary instruction Follow activity as directed Keep your appointments as scheduled Take your immunizations and boosters as scheduled If your symptoms worsen call your PCP, if no PCP go to Urgent Care Center or Emergency Room Smoking is Dangerous to Your Health. Avoid second hand smoke Call the 24-hour hour crisis hotline for domestic abuse at Lisa Callahan Jan 11, 2017 15:39
[2017-01-11 15:50] VITALS: RESP 18
== END 2017-01-11 17:15 | disposition home health service (06) | DRG 617 ==
LOC: NEPC 14:57 → NEDA 19:10 → NEPHCDU 21:49 → N03B 01-02 12:40 → N07B 01-02 15:01
PROVIDERS: ADMIT Internal Medicine; ATTEND Internal Medicine
PROC: 0Y6H0Z1 Detachment at Right Lower Leg, High, Open Approach (ICD-10-PCS; principal; 2017-01-02 13:46)
PROC: 0FPB8DZ Removal of Intraluminal Device from Hepatobiliary Duct, Via Natural or Artificial Opening Endoscopic (ICD-10-PCS; 2017-01-04)
DX: E11.69 Type 2 diabetes mellitus with other specified complication (principal); M86.8X7 Other osteomyelitis, ankle and foot; E11.40 Type 2 diabetes mellitus with diabetic neuropathy, unspecified; R16.2 Hepatomegaly with splenomegaly, not elsewhere classified; E11.65 Type 2 diabetes mellitus with hyperglycemia; E11.52 Type 2 diabetes mellitus with diabetic peripheral angiopathy with gangrene; E11.621 Type 2 diabetes mellitus with foot ulcer; L97.519 Non-pressure chronic ulcer of other part of right foot with unspecified severity; M19.90 Unspecified osteoarthritis, unspecified site; J45.909 Unspecified asthma, uncomplicated; Z90.81 Acquired absence of spleen; Z87.891 Personal history of nicotine dependence; Z91.19 Patient's noncompliance with other medical treatment and regimen; I10 Essential (primary) hypertension; K76.0 Fatty (change of) liver, not elsewhere classified; H54.7 Unspecified visual loss; K59.03 Drug induced constipation; T40.605A Adverse effect of unspecified narcotics, initial encounter; Y92.239 Unspecified place in hospital as the place of occurrence of the external cause; H10.9 Unspecified conjunctivitis; Z59.0 Homelessness; D64.9 Anemia, unspecified; Z79.84 Long term (current) use of oral hypoglycemic drugs; Z23 Encounter for immunization
CPT/HCPCS: 73620; 74177; 74330; 80048; 80053; 80074; 80076; 80202; 82390; 82728; 82948; 83520; 83540; 85025; 85027; 85610; 85652; 85730; 86038; 86140; 86255; 88307; 88311; 90732; 93005; 96365; J0330; J1170; J1200; J1650; J1815; J1885; J2175; J2250; J2270; J3010; J3370; J7040; Q9963; Q9967